=== PATIENT | male | born 1950 | race Caucasian/White ===

== ENCOUNTER → 2024-10-05 06:31 | Outpatient (REF) | payer OTHER, SELFPAY | LOC: RCS 06:31 | PROVIDERS: ATTENDING PHYSICIAN Internal Medicine Cardiovascular Disease; FAMILY PHYSICIAN Student in an Organized Health Care Education/Training Program | DX: R00.2 Palpitations (principal) | CPT/HCPCS: 78452; 93017; A9500 ==

== ENCOUNTER → 2024-10-18 11:26 | Outpatient (REF) | payer OTHER, SELFPAY | LOC: RCS 11:26 | PROVIDERS: ATTENDING PHYSICIAN Internal Medicine Cardiovascular Disease; FAMILY PHYSICIAN Student in an Organized Health Care Education/Training Program | DX: I25.10 Atherosclerotic heart disease of native coronary artery without angina pectoris (principal) | CPT/HCPCS: 93306 ==

== ENCOUNTER → 2024-12-19 08:38 | Outpatient (REF) | payer OTHER, SELFPAY | LOC: RAD 08:38 | PROVIDERS: ATTENDING PHYSICIAN Physician Assistant; FAMILY PHYSICIAN Student in an Organized Health Care Education/Training Program | DX: M25.551 Pain in right hip (principal) | CPT/HCPCS: 73502 ==

== ENCOUNTER → 2025-01-02 17:26 | Outpatient (REF) | payer OTHER, SELFPAY | LOC: MRI 17:26 | PROVIDERS: ATTENDING PHYSICIAN Physician Assistant | DX: R93.89 Abnormal findings on diagnostic imaging of other specified body structures (principal); M88.9 Osteitis deformans of unspecified bone | CPT/HCPCS: 72197; A9575 ==

== ENCOUNTER 2025-02-22 13:18 | Inpatient (IN) | payer OTHER, SELFPAY ==
[2025-02-22] VITALS (16 sets, daily range): BP systolic 83–145; BP diastolic 37–97; BMI 24.3
[2025-02-22 11:41] LABS: Hemoglobin 11.1 g/dL (13.0-18.0); Mean Corp Hgb Conc. 35.8 g/dL (33.0-37.0); Mean Corpuscular Hgb 30.3 pg (27.0-31.0); Mean Corpuscular Volume 84.7 fL (80.0-94.0); Mean Platelet Volume 9.3 fL (7.4-10.4); Platelet Count 310 10^3/uL (130-400); Red Blood Cell Count 3.66 10^6/uL (4.70-6.10); Red Cell Dist. Width 14.6 % (11.5-14.5); White Blood Cell Count 23.5 10^3/uL (4.8-10.8)
--- NOTE | 2025-02-22 12:09 | ED.GENMED ---
History of Present Illness
General
Chief Complaint: Abdominal Symptoms
Source: patient and family
Time Seen by Provider: 02/22/25 11:46
History of Present Illness
History of Present Illness:
74-year-old male brought to the emergency by family for evaluation of fatigue, poor oral intake, nausea and right groin pain. Patient was discovered to have a lesion on his right pubic bone in November. This area has been causing significant pain.
His primary prescribed meloxicam and Tylenol for this. He was ultimately referred to orthopedics and had a bone biopsy performed at [facility] yesterday. Family states that his oral intake has been poor but particularly bad over the past 24 hours. He
has not been able to tolerate any oral intake. Like he is hallucinating at times. He is very weak and has difficulty performing any sort of activities. No known fever.
Past History
Past History
ED Past Medical History: None
ED Past Surgical History: Other (Hernia repair)
Social History
Tobacco: Smoker
Alcohol: Daily (2-3 beers)
Phy Exam
Physical Exam
Physical Exam:
General: Awake, Alert, Oriented X3. No acute distress but appears chronically ill
Vitals: Cardiac, mildly hypotensive
Head: Atraumatic
Eyes: Sunken eyes, pupils equal, EOMI
Throat: Airway intact, no exudates, very dry mucosa
Neck: Trachea midline
Lungs: Clear and equal b/l
Heart: Regular rate, no murmurs
Abd: Soft, Nontender, No pulsatile mass
Neuro: Nonfocal
Skin: Warm, dry, no rash
Extremities: pulses equal b/l, no edema
Course
Orders/Labs/Results
Orders:
Orders
02/22/25 11:28
Electrocardiogram (*1) Urgent
Reason for Study: Other
Other Reason for Exam: Possible Stroke
EKG- Treatment ONCE
02/22/25 11:29
Complete Blood Count/With Diff Urgent
Comprehensive Metabolic Panel Urgent
Magnesium Urgent
Comment: ADD ON
Phosphorus Urgent
Comment: ADD ON
TSH Urgent
Comment: ADD ON
02/22/25 12:12
0.9% Sodium Chloride 1000 ml [Nss] 1,000 ml IV BOLUS
02/22/25 12:13
CR Chest - 2 Views Urgent
Comment:
Reason For Exam: weakness
02/22/25 12:18
Urinalysis Reflex To Culture Urgent
Date Specimen was Collected: 02/22/25
Time Specimen was Collected: 12:14
Urine Microscopic Reflex Cult Urgent
02/22/25 12:27
Add On- LAB Urgent
Tests Added?: ionized calcium, mag, phos
0.9% Sodium Chloride 1000 ml [Nss] 1,000 ml IV BOLUS
02/22/25 12:43
Ionized Calcium Routine
02/22/25 13:08
Admit/Transfer Patient As Directed
Co-Sign Provider:
Level of Care: Inpatient admission
Assign to:: Telemetry
Physician / Group: filiberto
Diagnosis: hypercalcemia
Reason for Telemetry: Arrhythmia
Date to Stop Telemetry: 02/25/25
Time to Stop Telemetry: 11:00
Reason for Hospitalization: hypercalcemia
Expected length of stay greater than two midnights?: Yes
ELOS- Estimated Length of Stay in days: 2
I certify the patient meets the requirements for IP care: Yes
Code Status As Directed
Resuscitation Status: Full Code
PRN Pain Medication Management As Directed
May give lesser potent ordered pain med per pt: Yes
preference::
Protocol:: Medication orders for pain may be administered in a
manner that supports deferring to patient preference
when the pt is:
- Requesting an ordered lesser potent pain medication.
Least to most potent pain medications are defined
as: acetaminophen < NSAID < tramadol < opioids
(morphine, oxycodone, hydromorphone).
- Requesting a lesser dose of the same medication IF
ORDERED.
- Requesting a less intrusive route of administration
if both routes are prescribed by the provider (PO <
IV).
02/22/25 13:17
Urine Osmolality Random [Osmolality, Random Urine] Routine
Date Specimen was Collected: 02/22/25
Time Specimen was Collected: 13:14
Urine Sodium Routine
Date Specimen was Collected: 02/22/25
Time Specimen was Collected: 13:14
02/22/25 14:33
Add On- LAB Routine
Tests Added?: tsh, pth, pthrp, vit d
Activity As Directed
Activity Level: As Tolerated
Vital Signs As Directed
Frequency: Per unit guidelines
DX Deep Vein Thrombosis Video Routine
02/22/25 14:46
Acetaminophen [Tylenol] 650 mg PO Q4HPRN PRN
02/22/25 Dinner
Cholesterol Lowering
At Your Request: Full Participation
Does patient need a safe tray?: No
Cholesterol Lowering: Sodium, 2 Gram
02/22/25 20:00
Heparin 5,000 units SC Q12
02/23/25 06:00
Complete Blood Count/With Diff IN AM
Comprehensive Metabolic Panel IN AM
02/23/25 08:00
Aspirin Chewable [Low Strength Aspirin] 81 mg PO DAILY
Atorvastatin [Lipitor] 40 mg PO DAILY
Ezetimibe [Zetia] 10 mg PO DAILY
02/25/25 11:00
DC Protocol for Telemetry ONCE
Abnormal Lab Results
02/22/25 02/22/25 02/22/25
11:29 12:18 12:43
WBC 23.5 H 10^3/uL
(4.8-10.8)
RBC 3.66 L 10^6/uL
(4.70-6.10)
Hgb 11.1 L g/dL
(13.0-18.0)
Hct 31.0 L %
(39.0-52.0)
RDW 14.6 H %
(11.5-14.5)
Abs Immat Gran (auto) 0.2 H 10^3/uL
(0-0.05)
Absolute Neuts (auto) 20.2 H 10^3/uL
(1.4-6.5)
Absolute Monos (auto) 1.4 H 10^3/uL
(0.1-0.6)
Immature Gran % 1.0 H %
(0-0.5)
Neutrophils % 85.7 H %
(42.2-75.2)
Lymphocytes % 6.9 L %
(20.5-51.1)
Sodium 126 L mmol/L
(135-145)
Chloride 93 L mmol/L
(98-107)
BUN 48 H mg/dl
(9-20)
Creatinine 2.1 H mg/dL
(0.7-1.3)
Glucose 115 H mg/dl
(70-99)
Calcium 14.8 H* mg/dl
(8.4-10.2)
Ionized Calcium 1.89 H* mMOL/L
(1.15-1.33)
Urine Bilirubin 1+ A
(Negative)
Urine Bacteria (Reflex) Few A
(Negative)
Urine Albumin (Reflex) 2+ A
(Neg - Trace)
02/22/25 11:29
02/22/25 11:29
Vital Signs
Initial and Last Documented VS:
Initial Vital Signs
Temp Pulse Resp BP Pulse Ox
97.5 F 104 18 93/55 96
02/22/25 11:04 02/22/25 11:04 02/22/25 11:04 02/22/25 11:04 02/22/25 11:04
Last Documented Vital Signs
Temp Pulse Resp BP Pulse Ox
97.2 F 87 14 126/59 100
02/22/25 14:43 02/22/25 14:43 02/22/25 14:43 02/22/25 14:43 02/22/25 14:43
MDM/Problems Addressed
Differential Diagnosis Includes:
Dehydration, acute renal failure, electrolyte abnormality such as hyponatremia or hyperkalemia
MDM/Problems Addressed:
Patient presents with nausea, poor appetite, poor oral intake and generalized weakness. Clinically he looks quite dry. IV fluids started. Labs shows the patient has several abnormalities. His white blood cell count is significantly elevated
23.5. He is afebrile and on physical exam there is no obvious source of infection. Sodium low at 126. Patient's BUN and creatinine are significantly elevated beyond baseline. Calcium levels are quite high with a serum calcium of 14.8 and an
ionized calcium of 1.89. Initial treatment for this is aggressive IV hydration. 2 L of normal saline have been ordered initially. Patient had mild hypotension initially. This is improving with IV fluid. Patient seems more alert now that he has
had some fluid resuscitation. Obviously will require hospitalization and careful monitoring given his significant hypercalcemia.
*Radiology
Radiology exam reviewed: radiology read reviewed
*Pulse Oximetry
Patient hypoxic: no
*EKG
Interpreted by ED Provider?: Yes
Interpretation: abnormal
Heart Rate: 96
Rate: normal
Rhythm: sinus
Interval: first degree heart block
QRS Pattern: right bundle branch block
Ischemia: non-specific ST changes
*Quirk Sander Interpretation
Rate: normal
Interpretation: normal
Rhythm: sinus
*Critical Care Note
Total Time (30-74mins, 75-104mins- exclusive of procedures): 35 min
comment:
Critical care statement: A total of 35 minutes of critical care time was provided for this patient. This includes management of unstable vital signs, evaluation of the patient at bedside, reviewing the patient's pertinent medical records, discussion
with consultants, review of old EKGs and review of pertinent medical records. This time with separate from time utilized to perform the aforementioned documented procedures
Patient Management
Social determinants of health affecting care: Living situation and Strong social support
Discussion with other providers: Hospitalist
ED Attending Note
-
Portions of this chart may have been created with voice recognition software.� Occasional wrong word or��sound alike� substitutions may have occurred due to the inherent limitations of voice recognition software.
Discharge Plan
Departure
Patient Disposition: Admit
Date of Disposition: 02/22/25
Time of Disposition: 12:57
Admit to: IVU and IMU
Presentation/result/management discussed w/ accepting MD/DO: Hospitalist
Condition: Serious
Discharge Problem:
Hypercalcemia, Acute dehydration, Acute renal failure (ARF)
Interventions
Interventions:
*Risk Screen - Suicide Last Done: 02/22/25 11:04
*General Assessment Last Done: 02/22/25 11:04
*Neglect/Abuse Screening Last Done: 02/22/25 11:04
*ED- Fall Risk Assessment Last Done: 02/22/25 11:24
*ED COVID-19 Vaccine History Last Done: 02/22/25 15:00
*Nursing Disposition Last Done: 02/22/25 13:43
WG-Hialzf-Jkmctvijrx Assessment Last Done: 02/22/25 11:22
Discharge Date and Time
Discharge Date/Time: 02/22/25 14:29
[2025-02-22 12:11] LABS: ALT (SGPT) 31 U/L (0-50); AST (SGOT) 59 U/L (17-59); Albumin 3.8 g/dl (3.5-5.0); Alkaline Phosphatase 126 U/L (38-126); Blood Urea Nitrogen 48 mg/dl (9-20); Carbon Dioxide 22 mmol/L (22-30); Chloride 93 mmol/L (98-107); Estimated Creatinine Clearance 29 ml/min; Glucose 115 mg/dl (70-99); Potassium 5.1 mmol/L (3.5-5.1); Sodium 126 mmol/L (135-145); Total Bilirubin 1.3 mg/dl (0.2-1.3); Total Protein 6.4 g/dl (6.3-8.2); eGFR 32.62
[2025-02-22 12:16] LABS: % Basophils 0.3 % (0-2); % Eosinophils 0.1 % (0-6); % Lymphocytes 6.9 % (20.5-51.1); % Neutrophils 85.7 % (42.2-75.2); Absolute Basophils 0.1 10^3/uL (0-0.2); Absolute Immature Granulocytes 0.2 10^3/uL (0-0.05); Absolute Lymphocytes 1.6 10^3/uL (1.2-3.4); Absolute Monocytes 1.4 10^3/uL (0.1-0.6); Absolute Neutrophils 20.2 10^3/uL (1.4-6.5); Nucleated Red Blood Cells % 0 % (-)
[2025-02-22] MEDS: NSS 1000 IV ×4 (12:16→16:03)
[2025-02-22 12:33] LABS: Urine Albumin 2+ (Neg - Trace); Urine Bilirubin 1+ (Negative); Urine Character Clear (Clear); Urine Color Yellow; Urine Glucose Negative (Negative); Urine Ketone Negative (Negative); Urine Leukocyte Negative (Negative); Urine Nitrite Negative (Negative); Urine Occult Blood Negative (Negative); Urine Specific Gravity 1.025 (<1.030); Urine Urobilinogen Negative (Neg - 1+)
[2025-02-22 12:47] LABS: Calcium 14.8 mg/dl (8.4-10.2)
[2025-02-22 12:49] LABS: Magnesium 2.3 mg/dl (1.6-2.3); Phosphorus 3.8 mg/dl (2.5-4.5)
[2025-02-22 13:08] LABS: Ionized Calcium 1.89 mMOL/L (1.15-1.33)
[2025-02-22 13:11] LABS: Urine Mucus Moderate
[2025-02-22 13:12] LABS: Urine Bacteria Few (Negative); Urine Red Blood Cell 0-2 /HPF (0-2)
[2025-02-22 13:27] LABS: Osmolality Urine 428 mOsm/kg (300-900)
--- NOTE | 2025-02-22 13:27 | HPS.HSE ---
Family Physician
-
Family Physician: Hany Fonseca MD
Chief Complaint
-
confusion
History of Present Illness
74-year-old male past medical history of possible Paget's disease, ischemic cardiomyopathy with recovered ejection fraction, CAD, hypertension, osteoarthritis, presenting with fatigue, poor oral intake, nausea and right groin pain. He was
discovered to have a lesion on his right pubic bone in November after a fall which has been causing him significant pain and ambulatory dysfunction. He has been prescribed meloxicam and Tylenol for this. He was referred to orthopedics and had a bone
biopsy at [facility] few days ago. His oral intake has been poor but particularly bad over the past 24 hours. He is hallucinating at times. He is very weak and has difficulty performing any activities. No fever. He has had constipation but did have a
bowel movement today. He has had weight loss. No abdominal pain.
He was thought to have Paget's disease in the past but it was not confirmed.
He has chronic shortness of breath with exertion.
His mother had Paget's disease.
He used to drink alcohol and smoke but denies any such activities anymore.
Medical History
Past Medical History
Past Medical History: Reports Other (possible Paget's disease, ischemic cardiomyopathy with recovered ejection fraction, CAD, hypertension, osteoarthritis)
Past Surgical History: Reports None
Social History
Tobacco: Former Smoker
Alcohol: Former
Drug: Former User
Family History
Family History: Not pertinent
Allergies / Home Medications
Allergies reflects when Allergies were last updated in [employer].
Home Medications with original date entered in [employer]
Allergy/Medication List:
Allergies
Allergy/AdvReac Type Severity Reaction Status Date / Time
seasonal Allergy sneezing Uncoded 02/22/25 11:04
Home Medications
atorvastatin 40 mg tablet 40 mg PO DAILY High cholesterol 08/09/19
lisinopril 20 mg tablet 20 mg PO DAILY Blood pressure 10/06/21
acetaminophen 650 mg tablet,extended release 650 mg PO Q4HPRN PRN PAIN 02/22/25
aspirin 81 mg tablet 81 mg PO DAILY 02/22/25
ezetimibe 10 mg tablet 10 mg PO DAILY 02/22/25
meloxicam 15 mg tablet 15 mg PO DAILY 02/22/25
metoprolol succinate 25 mg tablet,extended release 24 hr 25 mg PO DAILY 02/22/25
Review of Systems
-
History Source: Patient
A 12 point ROS was completed and negative except as noted: Yes
Constitutional: Reports No Symptoms
EENT: Reports No Symptoms
Respiratory: Reports No Symptoms
Cardiac: Reports No Symptoms
Abdomen/GI: Reports See HPI
: Reports No Symptoms
Musculoskeletal: Reports No Symptoms
Skin: Reports No Symptoms
Neurological: Reports No Symptoms
Endocrine: Reports No Symptoms
Hematologic/Lymphatic: Reports No Symptoms
Psych: Reports No Symptoms
Physical Exam
Vital Signs
Vital Signs
Temp Pulse Resp BP Pulse Ox
99.3 F 97 22 93/54 97
02/22/25 12:21 02/22/25 13:16 02/22/25 13:16 02/22/25 13:16 02/22/25 12:30
Physical Exam
General: Well Developed, Well Nourished and No Apparent Distress
HEENT: NormoCephalic, Moist mucous membranes and Atraumatic
Respiratory: Clear
Cardiac: S1/S2 and Regular Rhythm; No Murmur or Rub
GI: Soft, Non Tender, Non Distended and Normal Bowel Sounds; No Organomegaly
Rectal: Deferred by Provider
Musculoskeletal: No Clubbing, No Cyanosis and No Edema
Skin: No Rash
Neuro: Nonfocal/grossly intact
Laboratory Results
-
02/22/25 11:29
02/22/25 11:29
Laboratory Results
Total Bilirubin 1.3 mg/dl (0.2-1.3) 02/22/25 11:29
AST 59 U/L (17-59) 02/22/25 11:29
ALT 31 U/L (0-50) 02/22/25 11:29
Alkaline Phosphatase 126 U/L (38-126) 02/22/25 11:29
Data Reviewed
-
Lab Data: Labs Reviewed by me
Old Records: Reviewed
Impression/Plan
-
IMPRESSION:
PLAN:
# Severe symptomatic hypercalcemia likely secondary to possible Paget's disease with possible sarcomatous transformation versus myeloma
- Calcium of 14.8
- IV fluids
-Pamidronate
- Check PTH, PTH RP, vitamin D
- nephrology consulted
# Acute kidney injury likely prerenal/NSAID use
- IV fluids
- Hold lisinopril, meloxicam
# Hyponatremia likely due to poor solute intake
- Sodium 126
- Check urine sodium, osmolality, TSH
- Monitor with IV fluids
# Dyspnea on exertion
- Chest x-ray pending
# Right pubic bone lesion
- Recently had biopsy at [facility] yesterday
-Unclear if Paget's disease versus malignancy
- Hold meloxicam
- Outpatient follow-up with orthopedic oncology and biopsy results
Ischemic cardiomyopathy with recovered EF
- Continue metoprolol
CAD
- Continue aspirin
Essential hypertension
- Hold lisinopril
Osteoarthritis
Hyperlipidemia
- Continue Zetia, statin,
DNR/DNI
DVT prophylaxis�heparin
Regular diet
--- NOTE | 2025-02-22 14:04 | W.CON.NEPH ---
Consultation
-
Date/Time Consultation Requested: 02/22/2025 1 PM
Date/Time Consultation Performed: 02/22/2025 2 PM
Requesting Provider: Dr. Santo
Performing Provider: Dr. Ruiz
Reason for Consultation: NOMI, hypercalcemia
Medical History
-
Chief Complaint: confusion
History of Present Illness:
This is a 74-year-old gentleman who has hypertension typically controlled with a multidrug regimen, hyperlipidemia on Zetia therapy. He has known ischemic cardiomyopathy but recovered ejection fraction after coronary bypass 2014. He had previously
been a smoker but had quit after his bypass surgery. He has been diagnosed with Paget's disease of the bone clinically in the right pelvis. This had been followed conservatively. In December he underwent MRI which showed a large expansile soft
tissue mass in the right pubic bone and superior pubic ramus of 7 cm x 4.7 cm. There is concern that this would represent transformation of osteosarcoma. He saw Ortho oncology and underwent biopsy of the mass on 02/19/2025. Final pathology
report is pending still. Reports that in the last week but more so in the last 24 hours he has become increasingly confused and disoriented and more immobile and uncoordinated. He essentially has stopped eating or drinking. Has had no diarrhea
but urine output has been darker. He has continued to take his medications. For the last 2 months he has been using NSAIDs for pain. Initially he was using ibuprofen with Tylenol and in the last 2 weeks meloxicam. Ultimately given worsening of
his mental state they brought him to the emergency room. He was found to have a leukocytosis, hyponatremia, hypercalcemia with a calcium of 14.8, as well as hypotension. He is critically ill.
Past Medical History
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
Ischemic cardiomyopathy recovered ejection fraction
Coronary artery disease with bypass grafting 2014
hypertension
Hyperlipidemia
Diverticulosis
Right shoulder surgery
Right TKA
Mohs procedures
Social History
Tobacco: Former Smoker
Alcohol: None
Family History
Family History: Not Pertinent
Allergies / Home Medications
Allergy/AdvReac Type Severity Reaction Status Date / Time
seasonal Allergy sneezing Uncoded 02/22/25 11:04
�Medication �Instructions �Recorded �Confirmed �Type
atorvastatin 40 mg tablet 40 mg PO DAILY High cholesterol 08/09/19 02/22/25 History
lisinopril 20 mg tablet 20 mg PO DAILY Blood pressure 10/06/21 02/22/25 History
acetaminophen 650 mg 650 mg PO Q4HPRN PRN PAIN 02/22/25 02/22/25 History
tablet,extended release
aspirin 81 mg tablet 81 mg PO DAILY 02/22/25 02/22/25 History
ezetimibe 10 mg tablet 10 mg PO DAILY 02/22/25 02/22/25 History
meloxicam 15 mg tablet 15 mg PO DAILY 02/22/25 02/22/25 History
metoprolol succinate 25 mg 25 mg PO DAILY 02/22/25 02/22/25 History
tablet,extended release 24 hr
Review of Systems
-
No chest pain or shortness of breath.
+dysgeusia
All other systems: Negative unless noted
Physical Exam
Vital Signs
Vital Signs
Temp Pulse Resp BP Pulse Ox
99.3 F 93 22 97/45 97
02/22/25 12:21 02/22/25 13:30 02/22/25 13:30 02/22/25 13:30 02/22/25 12:30
Lab Results
WBC 23.5 10^3/uL (4.8-10.8) H 02/22/25 11:29
RBC 3.66 10^6/uL (4.70-6.10) L 02/22/25 11:29
Hgb 11.1 g/dL (13.0-18.0) L 02/22/25 11:29
Hct 31.0 % (39.0-52.0) L 02/22/25 11:29
Plt Count 310 10^3/uL (130-400) 02/22/25 11:
Sodium 126 mmol/L (135-145) L 02/22/25 11:
Potassium 5.1 mmol/L (3.5-5.1) 02/22/25 11:
Chloride 93 mmol/L (98-107) L 02/22/25:
Carbon Dioxide 22 mmol/L (22-30) 02/22/25:
BUN 48 mg/dl (9-20) H 02/22/25:
Creatinine 2.1 mg/dL (0.7-1.3) H 02/22/25:
eGFR 32.62 02/22/25 11:
Glucose 115 mg/dl (70-99) H 02/22/25:
Calcium 14.8 mg/dl (8.4-10.2) H* 02/22/25:
Phosphorus 3.8 mg/dl (2.5-4.5) 02/22/25:
Albumin 3.8 g/dl (3.5-5.0) 02/22/25:
Laboratory values 12/26/2024 sodium 138, potassium 5, chloride 100, bicarb 23, BUN 14, creatinine 0.71, calcium 9.7, WBC 11.0, hemoglobin 12.4, platelet 91
Laboratory values 02/02/2025 WBC 13.0, hemoglobin 11.6, platelets 380
Physical Exam
Patient is awake alert oriented and in no distress. Mood and affect were pleasant, insight and judgment were good. Pupils are equal round and reactive to light, extraocular movements are intact, sclera were anicteric. Hearing was normal, ears and
nose are intact. Oropharynx was clear. Neck was supple with trachea midline and no thyromegaly. Heart was regular rate and rhythm without rubs. Lower extremities without edema. Lungs were clear to auscultation bilaterally and with normal
excursion. Abdomen was soft, nontender, with normal active bowel sounds, and no hepatosplenomegaly. Skin was without rash and with normal turgor.
Data Reviewed
-
Radiology: Image Personally Visualized and interpreted (Chest x-ray 02/23/2024 by my reading left effusion cardiomegaly vascular prominence, left hilar prominence)
MRI: Report Reviewed by me (Pelvis MRI 01/02/2025 expansile lesion right pubic bone and superior pubic ramus with smaller lesions)
Labs: Labs Reviewed by me
Old Records: Reviewed
Assessment/Plan
-
Assessment
NOMI
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
Expansile lesion right pelvis status post biopsy 02/19/2025
Hypercalcemia, new in the last 2 months
Leukocytosis
Hypotension
Left hilar prominence
CAD/CABG
NSAID usage
Plan
IV fluids, saline, at least 3 L then maintenance
Follow BP add pressors if needed for persistent hypotension after bolus
Pamidronate
Calcitonin 4 doses
Hypercalcemic workup ordered
Holding NSAIDs, DENISE inhibitor
Fortunately high suspicion for malignancy
Critical time spent 40 minutes
[2025-02-22] MEDS: CALCIMAR/CALCITONIN 400 UNITS/ 2 ML SC ×2 (14:49→21:27)
[2025-02-22] MEDS: AREDIA 270 MG IV (15:11)
[2025-02-22 15:48] LABS: Calcium 13.2 mg/dl (8.4-10.2); Phosphorus 3.8 mg/dl (2.5-4.5)
[2025-02-22 16:00] LABS: TSH 2.94 uIU/ml (0.47-4.68)
[2025-02-22 16:04] LABS: Vitamin D, 25-OH*** < 12.8 ng/mL (30-80)
--- NOTE | 2025-02-22 16:18 | PTCARENOTE ---
Patient admitted to 4W from ED, pulled over from stretcher to bed. AAOx1 to self with some garbled speech. Bed alarm in place.
[2025-02-22 16:22] LABS: Urine Sodium 22 mmol/L (30-90)
--- NOTE | 2025-02-22 18:12 | PTCARENOTE ---
Patient's telemetry alarming for sustained VTach. Telemetry reviewed and EKG obtained, rhythm is sinus tachycardia with a RBBB. Patient reports feeling his heart was racing 'a little bit ago'. BP 105/44 HR sustaining 108-115. MD notified, no new
orders at this time. Plan of care ongoing.
--- NOTE | 2025-02-22 19:00 | PTCARENOTE ---
pt MO=[id number], here hypercalcemia TT=067 MH=963/54. EKG=sinus tachycardia. pt abdomen distended. bladder hcvv=[id number]. informed MOWER OPERATOR Wilbertb and sent ekg- order for straight and IV Lopressor. pt straight cath for 1175ml. HR still elevated. IV Lopressor
given w/+eff. HR 98-105. pt remains on tele will monitor.
[2025-02-22] MEDS: HEPARIN 5000 UNITS SC (20:13)
[2025-02-22] MEDS: LOPRESSOR 2.5 MG IV (20:17)
[2025-02-23] VITALS (8 sets, daily range): BP systolic 101–126; BP diastolic 51–61; PULSE 100–129; BMI 24.0
[2025-02-23] MEDS: NSS 1000 IV ×3 (00:42→16:33)
[2025-02-23] MEDS: TYLENOL 650 MG PO ×2 (00:42→16:33)
[2025-02-23] MEDS: ZYPREXA 5 MG IM (03:53)
[2025-02-23] MEDS: STERILE WATER FOR INJECTION 2.1 ML IM (03:54)
--- NOTE | 2025-02-23 04:01 | W.PN.UPDATE ---
Update Note
Progress Note Update
pt had been confused since admit but this morning pt being non redirectable and aggressive to staff. sarah lobo ordered x1
--- NOTE | 2025-02-23 04:25 | PTCARENOTE ---
pt restless all night pulling at INT, tele, gown.
at 0300 pt increase agitation, restless, and combative toward nsg because he wanted to go look for his dog. pt would not take redirection. s/w LAMBERTO Kumar - yamil Chandler w/some effect. .
[2025-02-23] MEDS: LOPRESSOR 2.5 MG IV (06:30)
--- NOTE | 2025-02-23 06:38 | PTCARENOTE ---
Pt Hr 100-[address] most of the night. pt voiding small amounts.
0500 bladder scan for 500, abdomen distended. pt unable to void. straight cath for 650ml.
0600 pt sleeping and HR 120 and sustaining. VJ=733/76. D[employer] HOUSE HAND Harriett Kumar aware. IV Lopressor w/ +eff. HR 101.
[2025-02-23 09:10] LABS: % Basophils 0.2 % (0-2); % Eosinophils 0.1 % (0-6); % Immature Granulocytes 0.8 % (0-0.5); % Lymphocytes 4.8 % (20.5-51.1); % Monocytes 7.1 % (1.7-9.3); Absolute Immature Granulocytes 0.2 10^3/uL (0-0.05); Absolute Lymphocytes 0.9 10^3/uL (1.2-3.4); Absolute Monocytes 1.4 10^3/uL (0.1-0.6); Absolute Neutrophils 16.8 10^3/uL (1.4-6.5); Hematocrit 24.6 % (39.0-52.0); Hemoglobin 8.8 g/dL (13.0-18.0); Mean Corp Hgb Conc. 35.8 g/dL (33.0-37.0); Mean Corpuscular Hgb 31.4 pg (27.0-31.0); Mean Corpuscular Volume 87.9 fL (80.0-94.0); Mean Platelet Volume 8.9 fL (7.4-10.4); Nucleated Red Blood Cells % 0 % (-); Platelet Count 257 10^3/uL (130-400); White Blood Cell Count 19.3 10^3/uL (4.8-10.8)
[2025-02-23] MEDS: LIPITOR PO ×2 (09:38→09:52)
[2025-02-23] MEDS: LOW STRENGTH ASPIRIN 81 MG PO (09:38)
[2025-02-23] MEDS: ZETIA PO ×2 (09:38→09:53)
[2025-02-23] MEDS: HEPARIN 5000 UNITS SC ×2 (09:38→20:27)
--- NOTE | 2025-02-23 10:01 | W.PN.HOSP.TC ---
Addendum entered and electronically signed by Lacie Yi MD 02/23/25 12:33:
# Stage 2 sacrum pressure injury, POA
Addendum entered and electronically signed by Lacie Yi MD 02/23/25 12:23:
updated and sister at bedside. Extensive discussion with both in person.
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
Original Note:
Today's Communication/Plan
-
see A/P
Assessment / Plan
Assessment / Plan
HPI: 74-year-old male past medical history of possible Paget's disease, ischemic cardiomyopathy with recovered ejection fraction, CAD, hypertension, osteoarthritis; p/w fatigue, poor oral intake, nausea and right groin pain.
He was discovered to have a lesion on his right pubic bone in November after a fall which has been causing him significant pain and ambulatory dysfunction.
He has been prescribed meloxicam and Tylenol for this. He was referred to orthopedics and had a bone biopsy at [facility] few days ago.
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 He is hallucinating at times. He has been very weak and has difficulty performing any activities. No fever. He has had constipation but did have a bowel movement on DOA.
He has had weight loss. No abdominal pain.
He was thought to have Paget's disease in the past but it was not confirmed.
He has chronic shortness of breath with exertion.
His mother had Paget's disease.
He used to drink alcohol and smoke but denies any such activities anymore.
A/P:
# Severe symptomatic hypercalcemia likely secondary to possible Paget's disease with possible sarcomatous transformation versus myeloma
Calcium 14.8 on admission,
cont IV fluids
s/p Pamidronate
cont calcitonin per renal
Follow PTH level
vitamin D level low (< 12.8), start high dose ergocalciferol
nephrology on board
# Acute kidney injury likely prerenal/NSAID use
SCr 2.1 on admission, cont to monitor, baseline 0.7
Cont IV fluids
Hold lisinopril, meloxicam
# Hyponatremia likely due to SIADH
Sodium 126, cont to monitor
Monitor sodium level with IV fluid as above
# Leucocytosis, reactive vs others?
Check empiric blood cultures x2
Cover with empiric abx Ceftriaxone for now
Monitor temp curve
# ?Acute metabolic encephalopathy due to hypercalcemia
Pt not conversant on exam today, unclear baseline
SPL eval
# Dyspnea on exertion
Incidental finding of lung mass
CXR: Enlargement of the left hilar shadow, concerning for adenopathy and/or central mass. Increased reticulonodular markings throughout most of the left lung, which appears asymmetric compared to the right lung, and raises concern for lymphangitic
spread of carcinoma. Prominence of soft tissue density in the right inferior paratracheal region, new since previous radiograph, and concerning for paratracheal lymphadenopathy.
Unfortunately, with current NOMI status, unable to check CT chest with contrast
Follow SPEP/UPEP
Onc CS
# Right pubic bone lesion
Recently had biopsy at [facility]
Unclear if Paget's disease versus malignancy
Hold meloxicam
Outpatient follow-up with orthopedic oncology and biopsy results
# Ischemic cardiomyopathy with recovered EF
Holding TUCKING MACHINE OPERATOR metoprolol with current hypotension
# CAD
Continue aspirin
# Essential hypertension
Hold TUCKING MACHINE OPERATOR lisinopril/metoprolol
# Osteoarthritis
# Hyperlipidemia
Continue Zetia, statin
DNR/DNI
DVT prophylaxis�heparin SQ
Regular diet
DW RN
called to update, calls not answered
total time spent 51 min
Anticipated Discharge: > 48 hours
Subjective/Interval History
-
Date of Service: February 23, 2025
Objective Data
-
Labs:
Laboratory Results
02/23/25
08:38
WBC 19.3 H
Hgb 8.8 L D
Hct 24.6 L
Plt Count 257
Sodium Pending
Potassium Pending
Chloride Pending
Carbon Dioxide Pending
BUN Pending
Creatinine Pending
Glucose Pending
Calcium Pending
Total Bilirubin Pending
AST Pending
ALT Pending
Alkaline Phosphatase Pending
Vital Signs:
Vital Signs
Temp Pulse Resp BP Pulse Ox
36.9 C 104 20 106/53 94
02/23/25 08:00 02/23/25 08:00 02/23/25 08:00 02/23/25 08:00 02/23/25 08:00
I&O
02/22/25 02/23/25 02/24/25
06:59 06:59 06:59
Intake Total 2850 / 2850
Output Total 2350 / 2350
Balance 500 / 500
Review of Systems
-
Unable to obtain full review of systems at this time due to: Acuity and Other (unclear if pt is conversant or not )
Physical Exam
-
General: Well Developed, Well Nourished, No Apparent Distress and Comfortable; Negative Respiratory Distress
HEENT: Normocephalic, Atraumatic, Nose Appears Normal and Ears Appear Normal; Negative Oxygen
Respiratory: Clear to Auscultation and Non Labored Respirations; Negative Accessory Resp Muscle Use
Cardiac: Regular Rhythm and S1/S2
GI: Soft, Nontender, Nondistended and Normal Bowel Sounds
Skin: Warm and Dry
Neuro: Awake
Psych: Calm
Data Reviewed
-
Labs: Labs Reviewed by me
[2025-02-23] MEDS: DRISDOL (VITAMIN D2) PO (10:52)
[2025-02-23] MEDS: CALCIMAR/CALCITONIN 400 UNITS/ 2 ML SC ×2 (10:52→20:27)
--- NOTE | 2025-02-23 12:02 | CM ---
Met and sister in patient's room. Patient and live in 2 level home with 3 steps to enter. There is not a first floor powder room. Up 13 steps to bathroom and bedroom. Patient has been declining in function at home but tries to be very
independent. He was getting himself up stairs with difficulty. He has a rolling walker at home and shower rail. His sister suggests a bedside commode. He has been sleeping in a recliner not his bed.
He has had [facility] in past.
PCP: Yasmani Fonseca
Pharmacy: [facility].
Patient may need additional DME for his home at discharge.
Awaiting PT and OT and ST ghotra to assist with discharge planning.
--- NOTE | 2025-02-23 12:04 | PN.CDI ---
CDI
- -
CDI:
Physician Documentation Request
Admit Date: 02/22/25 13:18
Dear Doctor Kd,
Please review the following and provide your response in the progress notes.
Clinical Indicators:
- RN skin assessments indicate Stage 2 sacrum pressure injury, POA
Physician documentation of the type and location of wounds is required for compliant documentation. Based on the above clinical findings and your assessment, please provide the following in your progress note:
1. Location of the ulcer/wound, including laterality.
2. Type (etiology) of ulcer/wound:
- Diabetic ulcer
- Arterial (ischemic) ulcer
- Traumatic wound
- Pressure (decubitus) ulcer
- Other
Use of terms such as suspected, likely, concern for, or probable (associated with a specific diagnosis that is being evaluated, monitored, or treated as if it exists) are acceptable and can be coded in the inpatient setting, when documented at the
time of discharge.
Thank you,
Brittney Garrido RN
CDI Specialist
Please use your independent medical judgment in providing your response.
*Source: National Pressure Ulcer Advisory Panel (NPUAP)
--- NOTE | 2025-02-23 12:49 | W.PN.NEPH.PH ---
Today's Communication / Plan
-
Maintain IV fluids
Walker cath
Hypercalcemia workup in progress
Labs ordered for tomorrow
Assessment/Plan
-
Assessment
NOMI
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
Expansile lesion right pelvis status post biopsy 02/19/2025
Hypercalcemia, new in the last 2 months
Leukocytosis
Hypotension
Left hilar prominence
CAD/CABG
NSAID usage
Plan
IV fluids, saline, at least 3 L then maintenance
Hemodynamically more stable today
Labs pending and to be reviewed
Pamidronate was given on admission
Calcitonin 4 doses
Hypercalcemic workup ordered
Holding NSAIDs, DENISE inhibitor
UnFortunately high suspicion for malignancy
Place Walker catheter given persistent straight cath requirement and urinary retention
-
-
Date of Service: February 23, 2025
CC / HPI / ROS
-
Chief Complaint:
Acute kidney injury
Hypercalcemia
History of Present Illness:
Hemodynamically more stable
Serum calcium and bmp pending
Review of Systems:
Nonoliguric but requiring multiple straight catheter procedure
No fever
Mental status off remains withdrawn and intermittently aggressive
Labs
-
Labs:
WBC 19.3 10^3/uL (4.8-10.8) H 02/23/25 08:38
RBC 2.80 10^6/uL (4.70-6.10) L 02/23/25 08:38
Hgb 8.8 g/dL (13.0-18.0) L D 02/23/25 08:38
Hct 24.6 % (39.0-52.0) L 02/23/25 08:38
Plt Count 257 10^3/uL (130-400) 02/23/25 08:38
eGFR 32.62 02/22/25 11:29
Phosphorus 3.8 mg/dl (2.5-4.5) 02/22/25 15:04
Physical Exam
-
Vital Signs:
Vital Signs
Temp Pulse Resp BP Pulse Ox
98.1 F 115 18 119/55 94
02/23/25 11:15 02/23/25 11:15 02/23/25 11:15 02/23/25 11:15 02/23/25 11:15
Cardiovascular:: Regular rate and rhythm
Lung Excursion:: Normal
Abdomen:: Nontender and Soft
Bowel Sounds:: Normal
Extremity Edema:: None: Bilateral:
Walker Catheter: No
[2025-02-23] MEDS: ROCEPHIN 1000 MG IV (12:59)
[2025-02-23] MEDS: STERILE WATER FOR INJECTION 10 ML IV (13:00)
--- NOTE | 2025-02-23 13:44 | CON.ONC ---
Documented by User: JANET Lemons 02/23/25 14:42
Consultation
-
Date Consultation Requested: 02/23/25
Date Consultation Performed: 02/23/25
Requesting Provider: Dr. Lacie Yi
Performing Provider: Dr. Cameron
Reason for Consultation: metastatic sarcomatoid carcinoma
Impression
Impression
Expansile lesion right pelvis status post biopsy 02/19/2025 diagnostic for malignant spindle and epithelioid cell neoplasm most consistent with metastatic sarcomatoid carcinoma
left hilar shadow, which is concerning for adenopathy and/or central mass
scattered throughout the left lung, and raises some concern for lymphangitic spread of carcinoma and paratracheal lymphadenopathy
Hypercalcemia of malignancy s/p pamidronate, calcitonin, NS IVF
Leukocytosis
hyponatremia
NOMI
Anemia
CAD/CABG
NSAID usage
Plan
Plan
I reviewed pathology of his newly diagnosed malignant spindle and epithelioid cell neoplasm most consistent with metastatic sarcomatoid carcinoma with patient
Goals remain restorative per
plans to follow up Dr. Dozier upon discharge
on abx per primary service
nephrology following
f/u anemia eval, monitor for bleeding
Patient History
History of Present Illness
74yo M who presented to 02/22/2025 with fatigue, poor intake, nausea, and right groin pain. He has been increasingly confused and disoriented. His initial evaluation showed a WBC 23.5, Hgb 11.1g/dL, platelet count 310,000, Na 126, bun 48,
creatinine 2.1, calcium 14.8. CXR left hilar shadow, which is concerning for adenopathy and/or central mass and scattered throughout the left lung, and raises some concern for lymphangitic spread of carcinoma
In brief, this patient has been suffering from right hip pain since November 2024. The pain was causing ambulatory dysfunction. Pain was not relived with Tylenol or NSAIDs. In December he underwent MRI which showed a large expansile soft tissue mass in
the right pubic bone and superior pubic ramus of 7 cm x 4.7 cm. He underwent a biopsy of the right pubic bone with ortho oncologist on February 19, 2025 that showed malignant spindle and epithelioid cell neoplasm most consistent with metastatic
sarcomatoid carcinoma.
Clinically, he is unable to provide history due to confusion and received zyprexa this morning. His significant other tells me that he has had a progressive decline since November 2024. He is mostly chair bound. He has not been able to eat or drink for
several months with a 15lb weight loss.
Afebrile, no hypotension, no hypoxia.
Past-Medical/Surgical History
PMH CAD, HLD, HTN, ICM, osteoarthritis
PSH right shoulder, R TKA, Mohs
Social former smoker, former ETOH, former recreational drugs. live with . retired
Family non-contributory, mother pagets disease
Patient Medication
�Medication �Instructions �Recorded �Confirmed �Last Taken �Type
atorvastatin 40 mg tablet 40 mg PO DAILY High cholesterol 08/09/19 02/22/25 02/21/25 History
lisinopril 20 mg tablet 20 mg PO DAILY Blood pressure 10/06/21 02/22/25 02/21/25 History
acetaminophen 650 mg 650 mg PO Q4HPRN PRN PAIN 02/22/25 02/22/25 02/21/25 History
tablet,extended release
aspirin 81 mg tablet 81 mg PO DAILY 02/22/25 02/22/25 02/21/25 History
ezetimibe 10 mg tablet 10 mg PO DAILY 02/22/25 02/22/25 02/21/25 History
meloxicam 15 mg tablet 15 mg PO DAILY 02/22/25 02/22/25 02/21/25 History
metoprolol succinate 25 mg 25 mg PO DAILY 02/22/25 02/22/25 02/21/25 History
tablet,extended release 24 hr
Active Medications
Generic Name Dose Route Start Last Admin
Trade Name Freq PRN Reason Stop Dose Admin
Acetaminophen 650 mg 02/22/25 14:46 02/23/25 00:42
Acetaminophen 325 Mg Tablet PO 03/22/25 14:45 650 mg
Q4HPRN PRN Administration
PAIN
Aspirin 81 mg 02/23/25 08:00 02/23/25 09:38
Aspirin 81 Mg Chewable Tablet PO 03/23/25 07:59 81 mg
DAILY GRISELDA Administration
Atorvastatin Calcium 40 mg 02/23/25 08:00 02/23/25 09:52
Atorvastatin (Lipitor) 40 Mg Tablet PO 03/23/25 07:59 Not Given
DAILY GRISELDA
Calcitonin 400 units 02/22/25 14:25 02/23/25 10:52
Calcitonin ([place]) Synthetic 400 Units/2 Ml Vial SC 02/23/25 20:01 400 units
BID GRISELDA Administration
Ceftriaxone Sodium 1,000 mg 02/23/25 12:00 02/23/25 12:59
Ceftriaxone 1000 Mg / 10 Ml Vial IV 1,000 mg
Q24H GRISELDA Administration
Ezetimibe 10 mg 02/23/25 08:00 02/23/25 09:53
Ezetimibe (Zetia) 10 Mg Tablet PO 03/23/25 07:59 Not Given
DAILY GRISELDA
Ergocalciferol 50,000 units 02/23/25 10:00 02/23/25 10:52
Ergocalciferol (Vitamin D-2) 03280 Units Capsule PO 03/23/25 09:59 Not Given
Q7D GRISELDA
Heparin Sodium 5,000 units 02/22/25 20:00 02/23/25 09:38
Heparin 5,000 Units/Ml 1 Ml Vial SC 03/22/25 19:59 5,000 units
Q12 GRISELDA Administration
Sodium Chloride 1,000 mls @ 100 mls/hr 02/22/25 14:33 02/23/25 09:36
Nss IV 1,000 mls
.Q10H GRISELDA Administration
Sodium Chloride 0 flush 02/22/25 15:00
Sodium Chloride 0.9% (Flush) Syringe IV 03/22/25 14:59
PER PROTOCOL GRISELDA
Sterile Water 10 ml 02/23/25 12:00 02/23/25 13:00
Sterile Water For Injection 10 Ml Vial IV 03/23/25 11:59 10 ml
Q24H GRISELDA Administration
Review of Systems
-
ROS is notable for HPI, otherwise negative
Physical Exam
-
General: No Apparent Distress
HEENT: Moist Mucous Membranes; Negative Jaundice
Cardiology: Normal Sinus Rhythm
Pulmonary: Clear
GI: Soft
Extremities: Pulses Present; Negative Edema
Skin: Warm
Psych: Calm
Labs
Lab Results
WBC 19.3 10^3/uL (4.8-10.8) H 02/23/25 08:38
RBC 2.80 10^6/uL (4.70-6.10) L 02/23/25 08:38
Hgb 8.8 g/dL (13.0-18.0) L D 02/23/25 08:38
Hct 24.6 % (39.0-52.0) L 02/23/25 08:38
MCV 87.9 fL (80.0-94.0) 02/23/25 08:38
MCH 31.4 pg (27.0-31.0) H 02/23/25 08:38
MCHC 35.8 g/dL (33.0-37.0) 02/23/25 08:38
RDW 15.0 % (11.5-14.5) H 02/23/25 08:38
Plt Count 257 10^3/uL (130-400) 02/23/25 08:38
MPV 8.9 fL (7.4-10.4) 02/23/25 08:38
Abs Immat Gran (auto) 0.2 10^3/uL (0-0.05) H 02/23/25 08:38
Absolute Neuts (auto) 16.8 10^3/uL (1.4-6.5) H 02/23/25 08:38
Absolute Lymphs (auto) 0.9 10^3/uL (1.2-3.4) L 02/23/25 08:38
Absolute Monos (auto) 1.4 10^3/uL (0.1-0.6) H 02/23/25 08:38
Absolute Eos (auto) 0.0 10^3/uL (0-0.7) 02/23/25 08:38
Absolute Basos (auto) 0.0 10^3/uL (0-0.2) 02/23/25 08:38
Immature Gran % 0.8 % (0-0.5) H 02/23/25 08:38
Neutrophils % 87.0 % (42.2-75.2) H 02/23/25 08:38
Lymphocytes % 4.8 % (20.5-51.1) L 02/23/25 08:38
Monocytes % 7.1 % (1.7-9.3) 02/23/25 08:38
Eosinophils % 0.1 % (0-6) 02/23/25 08:38
Basophils % 0.2 % (0-2) 02/23/25 08:38
Creatinine 2.1 mg/dL (0.7-1.3) H 02/22/25 11:29
Vital Signs
Vital Signs
Temp Pulse Resp BP Pulse Ox
98.1 F 115 18 119/55 94
02/23/25 11:15 02/23/25 11:15 02/23/25 11:15 02/23/25 11:15 02/23/25 11:15

Documented by User: Dank Cameron MD 02/23/25 16:04
Plan
Plan
I reviewed pathology of his newly diagnosed malignant spindle and epithelioid cell neoplasm most consistent with metastatic sarcomatoid carcinoma with patient
Goals remain restorative per
plans to follow up Dr. Dozier upon discharge
on abx per primary service
nephrology following
f/u anemia eval, monitor for bleeding
Oncology Addendum:
Patient case reviewed and agree w/ COMBATANT DIVER QUALIFIED note and plan as outlined
-f/u w/ orthopedic oncology at [facility] upon d/c
[2025-02-23 14:36] LABS: ALT (SGPT) 33 U/L (0-50); AST (SGOT) 55 U/L (17-59); Albumin 2.9 g/dl (3.5-5.0); Alkaline Phosphatase 104 U/L (38-126); Blood Urea Nitrogen 26 mg/dl (9-20); Calcium 11.6 mg/dl (8.4-10.2); Carbon Dioxide 19 mmol/L (22-30); Chloride 104 mmol/L (98-107); Estimated Creatinine Clearance 88 ml/min; Glucose 80 mg/dl (70-99); Potassium 4.4 mmol/L (3.5-5.1); Sodium 131 mmol/L (135-145); Total Protein 5.3 g/dl (6.3-8.2); eGFR > 60.00
[2025-02-23 14:56] LABS: Reticulocyte Count 4.6 % (0.4-2.8)
[2025-02-23 15:18] LABS: Iron 35 ug/dl (49-181); Percent Saturation 14 % (20-50); Total Iron Binding Capacity 249 ug/dl (261-462)
--- NOTE | 2025-02-23 15:48 | PHA.VAN.IN ---
Assessment
- Assessment
Renal Function: Appears similar to baseline
Concomitant Antimicrobials: ROCEPHIN
- Previous Dosing Experience
Previous Regimen: SINGLE DOSE ONLY
AUC Dosing Plan
- Dosing Variables
Dosing Weight (kg): 69.6
Dosing CrCl (ml/min): 88
Vd coefficient (L/kg): 0.7
- Empiric Dosing
Initial / Loading Dose: 1750MG
Maintenance Regimen: 1GM IV Q12H
Estimated AUC (mcg*h/mL): 551
Estimated Peak (mcg*h/mL): 33.9
Estimated Trough (mcg/ml): 14.5
Estimated Half Life (H): 8.9
Pharmacokinetics Vancomycin I
- -
Patient Age: 74
Patient Sex: Male
Vancomycin Day #: 1
Indication: Other
Requesting Provider: JAQUELIN
Height / Weight:
Height 5 ft 7 in
Actual Weight 69.57 kg
Pertinent Past Medical History: LUNG MASS; PAGET'S DX
- Vital Signs / Lab Results
Temp Pulse Resp BP Pulse Ox
100.8 F H 121 20 119/51 96
02/23/25 15:08 02/23/25 15:08 02/23/25 15:08 02/23/25 15:08 02/23/25 15:08
Lab Results - Hematology
02/22/25 02/23/25
11:29 08:38
WBC 23.5 H 19.3 H
Lab Results - Chemistry
02/22/25 02/23/25
11:29 08:38
BUN 48 H 26 H
Creatinine 2.1 H 0.7
Estimated Creat Clear 29 88
Albumin 3.8 2.9 L
Lab Results - Urine
02/22/25
12:18
Urine Nitrite (Reflex) Negative
Leukocyte Esterase Rfl Negative
Urine WBC (Reflex) 3-5
Ur Squamous Epith Cells 3-5
Urine Bacteria (Reflex) Few A
--- NOTE | 2025-02-23 15:50 | PTOTSP ---
Dysphagia Evaluation
Patient presents with acute elevated risk for dysphagia given lethargy with need for verbal/tactile cues to alert for PO intake. Additional risk factors include encephalopathy with acute illness and incidental findings concerning for possible lung
mass.
Recommend:
1. NPO given current JESSICA; consider temporary non-oral means if with prolonged NPO status
2. Medications: essential medications in puree only if awake/alert
3. Aspiration Risk Hydration Protocol - sparing sips of thin liquids only if awake/alert, after oral care, with supervision
4. Dysphagia re-evaluation to determine if/when appropriate to resume an oral diet.
[2025-02-23 16:06] LABS: Intact PTH < 3.4 pg/ml (13.6-85.8)
[2025-02-23] MEDS: VANCOCIN 535 MG IV (16:32)
[2025-02-23 20:50] LABS: Folate 3.1 ng/ml (2.76-20); Vitamin B12 975 pg/ml (239-931)
[2025-02-23] MEDS: NSS IV (21:39)
[2025-02-23] MEDS: DILAUDID 0.25 MG IV (22:03)
[2025-02-24] VITALS (7 sets, daily range): BP systolic 93–150; BP diastolic 52–89; BMI 24.0
[2025-02-24] MEDS: TYLENOL 650 MG PO ×3 (04:28→19:51)
--- NOTE | 2025-02-24 05:40 | PTCARENOTE ---
Patient was asleep most of the night and woke up around 0400. He has been tachy during his admission; however, after waking up, his HR kept increasing to the upper 120s-130s. BP 115/56, RR was 40. Pulse ox 92% on RA T 98.1. PRN Tylenol given at 0430
for R pelvic pain at bx site. Patient reported feeling SOB, started patient on 2L of O2. Pulse ox at 95%. At 0450, RR is 30-32. HR around 119-122. He appears more comfortable and is falling asleep. FUSE CUTTER made aware via TT. FUSE CUTTER decreased NSS to 70mls/hr.
At 0535, RR 26, HR 117. Patient appears to be resting comfortably.
[2025-02-24] MEDS: VANCOCIN 200 IV ×2 (06:14→17:39)
[2025-02-24 07:10] LABS: % Basophils 0.2 % (0-2); % Eosinophils 0.2 % (0-6); % Immature Granulocytes 0.8 % (0-0.5); % Lymphocytes 5.9 % (20.5-51.1); % Monocytes 8.1 % (1.7-9.3); % Neutrophils 84.8 % (42.2-75.2); Absolute Immature Granulocytes 0.1 10^3/uL (0-0.05); Absolute Lymphocytes 1.1 10^3/uL (1.2-3.4); Absolute Monocytes 1.5 10^3/uL (0.1-0.6); Absolute Neutrophils 15.2 10^3/uL (1.4-6.5); Hemoglobin 8.5 g/dL (13.0-18.0); Mean Corp Hgb Conc. 35.4 g/dL (33.0-37.0); Mean Corpuscular Hgb 31.5 pg (27.0-31.0); Mean Corpuscular Volume 88.9 fL (80.0-94.0); Mean Platelet Volume 8.8 fL (7.4-10.4); Nucleated Red Blood Cells % 0 % (-); Platelet Count 240 10^3/uL (130-400); Red Cell Dist. Width 15.5 % (11.5-14.5); White Blood Cell Count 17.9 10^3/uL (4.8-10.8)
[2025-02-24 07:24] LABS: Blood Urea Nitrogen 12 mg/dl (9-20); Calcium 10.3 mg/dl (8.4-10.2); Carbon Dioxide 22 mmol/L (22-30); Chloride 105 mmol/L (98-107); Estimated Creatinine Clearance 103 ml/min; Glucose 97 mg/dl (70-99); Magnesium 1.4 mg/dl (1.6-2.3); Potassium 3.9 mmol/L (3.5-5.1); Sodium 133 mmol/L (135-145); eGFR > 60.00
[2025-02-24] MEDS: HEPARIN 5000 UNITS SC ×2 (08:12→19:50)
[2025-02-24] MEDS: LIPITOR 40 MG PO (08:12)
[2025-02-24] MEDS: LOW STRENGTH ASPIRIN 81 MG PO (08:12)
[2025-02-24] MEDS: MAGNESIUM SULFATE 100 IV (08:12)
[2025-02-24] MEDS: ZETIA 10 MG PO (08:12)
--- NOTE | 2025-02-24 09:20 | PHA.VAN.FU ---
Vancomycin Assessment / Plan
- Assessment
Renal Function: SCR Decreasing
WBC's are: Trending Down
In the past 24 hrs, patient has been: Febrile (Tmax = 100.8)
Concomitant Antimicrobials: Ceftriaxone
- Dosing Plan
Continue: Vanc 1000mg IV Q12H
- Monitoring Plan
No level(s) ordered at this time: Consider levels after 02/25 1800 dose
- Follow Up
Pharmacy will continue to follow.
Vancomycin Follow UP
- -
Patient Age: 74
Patient Sex: Male
Vancomycin Day #: 2
Indication: Other
Requesting Provider: JAQUELIN
Height / Weight:
Height 5 ft 7 in
Actual Weight 69.57 kg
Pertinent Past Medical History: LUNG MASS; PAGET'S DX
- Vital Signs / Lab Results
Temp Pulse Resp BP Pulse Ox
99.0 F 114 20 104/52 97
02/24/25 07:00 02/24/25 07:00 02/24/25 07:00 02/24/25 07:00 02/24/25 07:00
Lab Results - Hematology
02/22/25 02/23/25 02/24/25
11:29 08:38 06:44
WBC 23.5 H 19.3 H 17.9 H
Lab Results - Chemistry
02/22/25 02/23/25 02/24/25
11:29 08:38 06:44
BUN 48 H 26 H 12
Creatinine 2.1 H 0.7 0.5 L
Estimated Creat Clear 29 88 103
Albumin 3.8 2.9 L
--- NOTE | 2025-02-24 09:51 | W.PN.HOSP.TC ---
Today's Communication/Plan
-
see A/P
Assessment / Plan
Assessment / Plan
HPI: 74-year-old male past medical history of possible Paget's disease, ischemic cardiomyopathy with recovered ejection fraction, CAD, hypertension, osteoarthritis; p/w fatigue, poor oral intake, nausea and right groin pain.
He was discovered to have a lesion on his right pubic bone in November after a fall which has been causing him significant pain and ambulatory dysfunction.
He has been prescribed meloxicam and Tylenol for this. He was referred to orthopedics and had a bone biopsy at [facility] few days ago.
His oral intake has been poor but particularly bad over the past 24 hours OUTSIDE CUTTER HAND. He is hallucinating at times. He has been very weak and has difficulty performing any activities. No fever. He has had constipation but did have a bowel movement on DOA.
He has had weight loss. No abdominal pain.
He was thought to have Paget's disease in the past but it was not confirmed.
He has chronic shortness of breath with exertion.
His mother had Paget's disease.
He used to drink alcohol and smoke but denies any such activities anymore.
A/P:
# Severe symptomatic hypercalcemia likely secondary to possible Paget's disease with possible sarcomatous transformation versus myeloma
Calcium 14.8 on admission,
cont IV fluids
s/p Pamidronate, calcitonin x4 doses per renal
Follow PTH level
vitamin D level low (< 12.8), started high dose weekly ergocalciferol
nephrology on board
# Acute kidney injury, likely prerenal/NSAID use and postrenal, resolved
# Acute urinary retention
SCr 2.1 on admission -> 0.5 today
Cont IV fluids
Walker placed 02/23
Hold lisinopril, meloxicam
# Hyponatremia likely due to SIADH, improving
Sodium level 126 in admission -> 133 today, cont to monitor
Monitor sodium level with IV fluid as above
# Leucocytosis, reactive vs others?
Follow empiric blood cultures x2
Cover with empiric abx Ceftriaxone/ vanc for now
Noted fever 02/23, monitor temp curve
Check repeat CXR 02/24
# Acute metabolic encephalopathy due to hypercalcemia, MS improved
Pt is awake and conversant today
per , baseline MS awake, conversant, orientated and functional
SPL eval and start diet if possible
# Dyspnea on exertion
# Incidental finding of lung mass
CXR: Enlargement of the left hilar shadow, concerning for adenopathy and/or central mass. Increased reticulonodular markings throughout most of the left lung, which appears asymmetric compared to the right lung, and raises concern for lymphangitic
spread of carcinoma. Prominence of soft tissue density in the right inferior paratracheal region, new since previous radiograph, and concerning for paratracheal lymphadenopathy.
Unfortunately, with current NOMI status, unable to check CT chest with contrast
Follow SPEP/UPEP
Onc on board
# Right pubic bone lesion s/p biopsy
right pubic bone biopsy from 02/19 2025 showed metastatic sarcomatoid carcinoma
Onc on board
# Ischemic cardiomyopathy with recovered EF
Holding OUTSIDE CUTTER HAND metoprolol with current hypotension
# CAD
Continue aspirin
# Essential hypertension
Hold OUTSIDE CUTTER HAND lisinopril/metoprolol
# Osteoarthritis
# Hyperlipidemia
Continue Zetia, statin
DNR/DNI
DVT prophylaxis�heparin SQ
Regular diet
DW RN
updated sister at bedside
total time spent 51 min
Anticipated Discharge: > 48 hours
Subjective/Interval History
-
Date of Service: February 24, 2025
Objective Data
-
Labs:
Laboratory Results
02/24/25
06:44
WBC 17.9 H
Hgb 8.5 L
Hct 24.0 L
Plt Count 240
Sodium 133 L
Potassium 3.9
Chloride 105
Carbon Dioxide 22
BUN 12
Creatinine 0.5 L
Glucose 97
Calcium 10.3 H
Vital Signs:
Vital Signs
Temp Pulse Resp BP Pulse Ox
37.2 C 114 20 104/52 97
02/24/25 07:00 02/24/25 07:00 02/24/25 07:00 02/24/25 07:00 02/24/25 07:00
I&O
02/23/25 02/24/25 02/25/25
06:59 06:59 06:59
Intake Total 2850 / 2850 1450 / 1450
Output Total 2350 / 2350 1900 / 1900
Balance 500 / 500 -450 / -450
Review of Systems
-
History Source: Patient
All other systems: Reviewed and negative
Physical Exam
-
General: Well Developed, Well Nourished, Comfortable and Conversant
HEENT: Normocephalic, Atraumatic, Nose Appears Normal, Ears Appear Normal and Oxygen (2L NC)
Respiratory: Clear to Auscultation and Non Labored Respirations; Negative Accessory Resp Muscle Use
Cardiac: Regular Rhythm and S1/S2
GI: Soft, Nontender, Nondistended and Normal Bowel Sounds
Skin: Warm and Dry
Neuro: Awake and Alert
Psych: Calm and Intact Judgement/Insight (somewhat )
Data Reviewed
-
Labs: Labs Reviewed by me
[2025-02-24] MEDS: STERILE WATER FOR INJECTION 10 ML IV (11:02)
[2025-02-24] MEDS: ROCEPHIN 1000 MG IV (11:03)
[2025-02-24] MEDS: NSS 1000 IV (11:04)
--- NOTE | 2025-02-24 13:38 | W.PN.NEPH.PH ---
Today's Communication / Plan
-
. DC IV fluids
Follow BMP
Hypercalcemia workup in progress
Assessment/Plan
-
Assessment
NOMI
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
Expansile lesion right pelvis status post biopsy 02/19/2025
Hypercalcemia, new in the last 2 months
Leukocytosis
Hypotension
Left hilar prominence
CAD/CABG
NSAID usage
Plan
PC further IV fluids as AKA. I've resolved and serum calcium levels now Normal
Hemodynamically stable today
hypercalcemia Labs pending and to be reviewed,Intact PTH was less than 4
Pamidronate was given on admission
Calcitonin 4 doses
Holding NSAIDs, DENISE inhibitor
UnFortunately high suspicion for malignancy
maintainFoley catheter given persistent straight cath requirement and urinary retention
-
-
Date of Service: February 24, 2025
CC / HPI / ROS
-
Chief Complaint:
Acute kidney injury
Hypercalcemia
History of Present Illness:
Hemodynamically more stable
Serum calcium Normalized
AK I resolved
Review of Systems:
Nonoliguric via Walker
No fever
Mental status off remains withdrawn and intermittently aggressive
Labs
-
Labs:
WBC 17.9 10^3/uL (4.8-10.8) H 02/24/25 06:44
RBC 2.70 10^6/uL (4.70-6.10) L 02/24/25 06:44
Hgb 8.5 g/dL (13.0-18.0) L 02/24/25 06:44
Hct 24.0 % (39.0-52.0) L 02/24/25 06:44
Plt Count 240 10^3/uL (130-400) 02/24/25 06:44
Sodium 133 mmol/L (135-145) L 02/24/25 06:44
Potassium 3.9 mmol/L (3.5-5.1) 02/24/25 06:44
Chloride 105 mmol/L (98-107) 02/24/25 06:44
Carbon Dioxide 22 mmol/L (22-30) 02/24/25 06:44
BUN 12 mg/dl (9-20) 02/24/25 06:44
Creatinine 0.5 mg/dL (0.7-1.3) L 02/24/25 06:44
eGFR > 60.00 02/24/25 06:44
Glucose 97 mg/dl (70-99) 02/24/25 06:44
Calcium 10.3 mg/dl (8.4-10.2) H 02/24/25 06:44
Phosphorus 3.8 mg/dl (2.5-4.5) 02/22/25 15:04
Albumin 2.9 g/dl (3.5-5.0) L 02/23/25 08:38
Physical Exam
-
Vital Signs:
Vital Signs
Temp Pulse Resp BP Pulse Ox
98.3 F 129 22 150/89 95
02/24/25 11:25 02/24/25 11:25 02/24/25 11:25 02/24/25 11:25 02/24/25 11:25
Cardiovascular:: Regular rate and rhythm
Lung Excursion:: Normal
Abdomen:: Nontender and Soft
Bowel Sounds:: Normal
Extremity Edema:: None: Bilateral:
Walker Catheter: No
[2025-02-24] MEDS: FLAGYL 500 MG 100 IV ×2 (13:43→21:26)
--- NOTE | 2025-02-24 14:15 | CM ---
MEt with patient, sister and spouse of patient. Chart had been reviewed. Suggested family and patient start to research SNFs that patient would be willing to go to if necessary. Unclear if patient would qualify for acute rehab due to his medical
needs. CM to follow.
--- NOTE | 2025-02-24 14:32 | PTOTSP ---
Speech therapy
02/24 CXR: 'IMPRESSION:
1. Large amount of left lower lobe opacity which is most likely SEVERE LEFT LOWER LOBE PNEUMONIA (probably postobstructive pneumonia secondary to left lower lobe bronchial occlusion).
2. 4.8 cm irregular shaped density in the left hilum most consistent with LEFT HILAR MALIGNANCY (either primary lung cancer or metastatic disease).
3. Large 7.4 cm DESTRUCTIVE OSSEOUS METASTASIS in the right lateral 6th rib.
4. Mild cardiomegaly.
5. Previous CABG surgery.'
Presentation: Patient appeared to be more alert today in comparison to yesterday's report. Per RN, patient is much more alert. Patient was re-positioned to an upright position within his bed. Patient reported pain in rib and abdonimal area but
agreed to participate.
Swallowing Function: CNMT observed patient with several trials of ice chips, thin via tsp, thin via cup, and puree tsp in which patient appeared to tolerate as he did not exhibit any overt clinical s/sx of aspiration or difficulty with mastication.
Patient and his shared that at home patient typically eats softer solids and thin liquids. Of note, patient remains high risk for aspiration given his clinical presentation (wax/wane alertness) and CXR.
Given patient's recent CXR and clinical presentation, recommend trial of IDDSI 4 puree solids and thin liquids with assistance to ensure tolerance. CNMT will upgrade solids as clinically appropriate.
Recommendations:
1) Trial of IDDSI 4; puree solids and thin liquids
2) Assistance with PO
3) Medications as tolerated
4) Consideration of further speech evaluation given dysarthric speech
Plan: CNMT will continue to follow to ensure tolerance; pending hospitalization.
--- NOTE | 2025-02-24 17:22 | CON.PUL ---
Addendum entered and electronically signed by William Padilla MD 02/26/25 00:23:
Patient was seen and evaluated on 02/25/2025
Original Note:
Consultation
Consultation Request
Date/Time Consultation Requested: 02/24/2025 - 1303
Date/Time Consultation Performed: 02/24/2025 - 170
Requesting Provider: Dr. Yi
Performing Provider: Dr. Padilla
Reason for Consultation: SOB/lung mass
Medical History
-
Chief Complaint: Reduced appetite, difficulty sleeping and hallucinations
History of Present Illness:
74-year-old male former tobacco smoker with a past medical history of ICM with recovered EF, stage II diastolic dysfunction, CAD s/p CABG x 5, hypertension, hypercholesterolemia, periodontal disease and history of severe mitral regurgitation s/p
mitral valve repair who presents with fatigue, reduced oral intake, nausea and right-sided groin pain. Previously found to have right hip pain since November 2024. In December he underwent MRI showing a large expansile osseous lesion in the right pubic
bone and superior pubic ramus suspicious for sarcomatous transformation. 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
sarcomatoid carcinoma. He came to the hospital because of increasing right groin pain with fatigue and reduced oral intake. In the ER he was afebrile with heart rate 104, respiratory rate 18, BP low at 93/55 and saturating 96% on room air. Labs
pertinent for leukocytosis to 23.5, anemia to 11.1, sodium 126, creatinine 2.1, calcium 14.8, intact PTH <3.4, and urinalysis with no signs of UTI. Urine and blood cultures collected. CXR shows an enlarged left hilar shadow concerning for
adenopathy versus a central mass, with increased reticulonodular markings throughout the left lung concerning for lymphangitic spread of carcinoma and a left-sided pleural effusion. He was given 2 L NS 0.9% in the ER and admitted to the floor, and
empirically started on antibiotics, with nephrology and hematology consulted. Patient had a repeat CXR on 02/24 showing airspace opacity throughout the left lower lobe and the lingula concerning for pneumonia. Pulmonary service now consulted for
additional management/recommendations.
PMHx: Chronic diastolic heart failure, history of severe mitral regurgitation s/p mitral valve repair, pulmonary hypertension, hypercholesterolemia, hypertension, periodontal disease, CAD s/p CABG x 5, diverticulosis, suspected Paget's disease
PSHx: CABG x 5 (2015), right TKA, Mohs procedure (on face)
Past Medical History
Past Medical History: Other (Above as per HPI)
Past Surgical History: Other (Above as per HPI)
Social History
Tobacco: Former Smoker
Alcohol: Occasional (Social)
Drug: None
Family History
Family History: CAD (Father + mother) and Other (Brother: HIV)
Allergies / Home Medications
Allergies
Allergy/AdvReac Type Severity Reaction Status Date / Time
seasonal Allergy sneezing Uncoded 02/22/25 11:04
Home Medications
�Medication �Instructions �Recorded �Confirmed �Last Taken �Type
atorvastatin 40 mg tablet 40 mg PO DAILY High cholesterol 08/09/19 02/22/25 02/21/25 History
lisinopril 20 mg tablet 20 mg PO DAILY Blood pressure 10/06/21 02/22/25 02/21/25 History
acetaminophen 650 mg 650 mg PO Q4HPRN PRN PAIN 02/22/25 02/22/25 02/21/25 History
tablet,extended release
aspirin 81 mg tablet 81 mg PO DAILY 02/22/25 02/22/25 02/21/25 History
ezetimibe 10 mg tablet 10 mg PO DAILY 02/22/25 02/22/25 02/21/25 History
meloxicam 15 mg tablet 15 mg PO DAILY 02/22/25 02/22/25 02/21/25 History
metoprolol succinate 25 mg 25 mg PO DAILY 02/22/25 02/22/25 02/21/25 History
tablet,extended release 24 hr
Review of Systems
-
History Source: Patient
All other systems: Negative unless noted
Vitals / Labs / Diagnostic Testing
Vital Signs
Temp Pulse Resp BP Pulse Ox
98.3 F 119 16 124/65 94
02/24/25 19:30 02/24/25 19:30 02/24/25 19:30 02/24/25 19:30 02/24/25 19:30
Lab Data
02/24/25 06:44
02/24/25 06:44
Microbiology
02/22/25 12:18 Urine Urine Culture - Final
No Significant Growth
02/23/25 11:51 Blood/Venous Blood Culture - Preliminary
No Growth in 24 hours- Final report to follow
02/23/25 11:11 Blood/Venous Blood Culture - Preliminary
No Growth in 24 hours- Final report to follow
Diagnostic Testing:
Physical Exam
-
HEENT: Normocephalic and Anicteric
Cardiovascular: S1/S2 and Peripheral Edema (negative)
Respiratory: Wheeze (Occasionally heard upon expiration bilaterally), Rales (negative) and Rhonchi (Left base)
GI: Soft, Non Distended, Non Tender and Normal Bowel Sounds
Neurology: Awake, Alert and Tremors (negative)
Skin: Warm and Dry
General: Respiratory Distress (negative), Comfortable, Fever (negative) and Chills (negative)
Assessment
-
Assessment: 74-year-old male former tobacco smoker with a past medical history of ICM with recovered EF, stage II diastolic dysfunction, CAD s/p CABG x 5, hypertension, hypercholesterolemia, periodontal disease and history of severe mitral
regurgitation s/p mitral valve repair who presents with fatigue, reduced oral intake, nausea and right-sided groin pain. Previously found to have right hip pain since November 2024. In December he underwent MRI showing a large expansile osseous lesion
in the right pubic bone and superior pubic ramus suspicious for sarcomatous transformation. He underwent a biopsy of the right pubic bone via Ortho oncologist on 02/19/2025 that showed malignant spindle and epithelioid cell neoplasm consistent with
metastatic sarcomatoid carcinoma. He came to the hospital because of increasing right groin pain with fatigue and reduced oral intake. In the ER he was afebrile with heart rate 104, respiratory rate 18, BP low at 93/55 and saturating 96% on room
air. Labs pertinent for leukocytosis to 23.5, anemia to 11.1, sodium 126, creatinine 2.1, calcium 14.8, intact PTH <3.4, and urinalysis with no signs of UTI. Urine and blood cultures collected. CXR shows an enlarged left hilar shadow concerning
for adenopathy versus a central mass, with increased reticulonodular markings throughout the left lung concerning for lymphangitic spread of carcinoma and a left-sided pleural effusion. He was given 2 L NS 0.9% in the ER and admitted to the floor,
and empirically started on antibiotics, with nephrology and hematology consulted. Patient had a repeat CXR on 02/24 showing airspace opacity throughout the left lower lobe and the lingula concerning for pneumonia. Pulmonary service now consulted
for additional management/recommendations.
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
Paget's disease
Impression:
#Left hilar mass with suspected left lower lobe pneumonia (?postobstructive)
#Leukocytosis
#Acute anemia
#Hyponatremia
#Hypercalcemia suspected to be from malignancy s/p IVF, calcitonin and pamidronate with improvement in calcium levels
#Hypomagnesemia
#Iron deficiency anemia in the setting of AOCD
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
#Evidence of metastatic bone lesions with right lateral 6th rib destruction on CXR (02/24/2025)
Plan:
- Obtain CT Chest with IV contrast (his NOMI has now resolved) to further evaluate this left-sided hilar mass, eval his mediastinal/hilar lymph nodes, and evaluate his airways to see if his LLL bronchi is patent
- We have had no chest imaging of this patient since 2014, and his left lower lobe at that time looked slightly abnormal with mild retrocardiac opacification and increased reticulonodular opacities
- If patient has had any recent CT chest imaging done at an outside institution then we should obtain those imaging reports and actual imaging studies on disc if possible
- If concern persists for a hilar mass then he should obtain an EBUS�bronchoscopy, possibly robotic bronchoscopy. Best modality use will be decided after CT chest obtained
- For now, continue with antibiotics as it does appear he has a left sided pneumonia (lingula + left lower lobe) - currently on Flagyl, ceftriaxone + vancomycin
- Check a sputum culture if patient can produce a decent sample; follow-up MRSA screen and follow-up blood cultures x 2 (collected 02/23); also follow-up urine culture; check urine antigens for Legionella + strep pneumonia
- Trend WBC and monitor temperature curve
- Prior hallucinations was due to hypercalcemia and his calcium level has markedly improved; continue to trend his calcium levels + ionized calcium levels; SPEP is pending; would continue with supplemental vitamin D2 as his level was <12.8. Given
that his PTH intact was low at <3.4, this further confirms suspicion of hypercalcemia of malignancy
- Of note, if patient has a squamous cell carcinoma then this can also explain the hypercalcemia
- Maintain SpO2 >90-94% with supplemental O2 as needed
- Aspiration precautions
- prn nebulized bronchodilators - not currently bronchospastic
- Incentive spirometer encouraged q1hr while awake
- Replete electrolytes with K>4, Mg>2
- Trend H/H and transfuse if needed to keep Hb>7g/dL; keep plt>20k, unless there is concern for bleeding then keep plt>50k
- Maintain euglycemia with goal BG >100 and <180
- DVT ppx: HSQ - -> now that his Cr is normal, would change to LMWH syeda given his underlying malignancy
Code status: DNR/DNI
Would be prudent to have a goals of care discussion before additional aggressive interventions are offered.
Pulmonary service will continue to follow along.
Data:
CXR 02/24/2025:
1. Large amount of left lower lobe opacity which is most likely SEVERE LEFT LOWER LOBE PNEUMONIA (probably postobstructive pneumonia secondary to left lower lobe bronchial occlusion).
2. 4.8 cm irregular shaped density in the left hilum most consistent with LEFT HILAR MALIGNANCY (either primary lung cancer or metastatic disease).
3. Large 7.4 cm DESTRUCTIVE OSSEOUS METASTASIS in the right lateral 6th rib.
4. Mild cardiomegaly.
5. Previous CABG surgery.
Total time spent today was 58 minutes for this encounter. Time includes reviewing laboratory test/imaging results, reviewing pertinent medical records, obtaining and reviewing medical history, performing an appropriate exam, ordering medications,
tests and procedures. Time also includes documentation of this encounter, coordinating patient care and communicating with other healthcare professionals. Total time does not include separately billed tests performed on this date of service.
--- NOTE | 2025-02-24 18:11 | PTCARENOTE ---
Patient tolerating upgraded pureed diet with no signs os aspiration. Awaiting MRSA swab results. Family eager to speak with Oncology. Plan of care ongoing.
[2025-02-25] VITALS (7 sets, daily range): BP systolic 101–121; BP diastolic 47–73; BMI 23.9
[2025-02-25] MEDS: FLAGYL 500 MG 100 IV ×3 (05:46→21:06)
[2025-02-25 06:14] LABS: % Basophils 0.2 % (0-2); % Eosinophils 0.8 % (0-6); % Immature Granulocytes 0.8 % (0-0.5); % Lymphocytes 5.9 % (20.5-51.1); % Neutrophils 85.3 % (42.2-75.2); Absolute Eosinophils 0.1 10^3/uL (0-0.7); Absolute Immature Granulocytes 0.1 10^3/uL (0-0.05); Absolute Monocytes 1.2 10^3/uL (0.1-0.6); Absolute Neutrophils 14.8 10^3/uL (1.4-6.5); Hematocrit 26.5 % (39.0-52.0); Hemoglobin 9.2 g/dL (13.0-18.0); Mean Corp Hgb Conc. 34.7 g/dL (33.0-37.0); Mean Corpuscular Hgb 30.9 pg (27.0-31.0); Mean Corpuscular Volume 88.9 fL (80.0-94.0); Mean Platelet Volume 8.8 fL (7.4-10.4); Nucleated Red Blood Cells % 0 % (-); Platelet Count 250 10^3/uL (130-400); Red Blood Cell Count 2.98 10^6/uL (4.70-6.10); Red Cell Dist. Width 15.4 % (11.5-14.5); White Blood Cell Count 17.3 10^3/uL (4.8-10.8)
[2025-02-25 06:42] LABS: Blood Urea Nitrogen 10 mg/dl (9-20); Calcium 9.2 mg/dl (8.4-10.2); Carbon Dioxide 24 mmol/L (22-30); Chloride 102 mmol/L (98-107); Estimated Creatinine Clearance 103 ml/min; Glucose 80 mg/dl (70-99); Magnesium 1.6 mg/dl (1.6-2.3); Potassium 3.8 mmol/L (3.5-5.1); Sodium 131 mmol/L (135-145); eGFR > 60.00
[2025-02-25] MEDS: VANCOCIN 200 IV ×2 (07:29→18:06)
[2025-02-25 08:53] LABS: Vitamin D 1,25 Dihydroxy 5.2 pg/mL (19.9-79.3)
[2025-02-25] MEDS: MAGNESIUM SULFATE 100 IV (09:25)
[2025-02-25] MEDS: ZETIA 10 MG PO (09:26)
[2025-02-25] MEDS: LIPITOR 40 MG PO (09:26)
[2025-02-25] MEDS: TOPROL XL 25 MG PO (09:26)
[2025-02-25] MEDS: LOW STRENGTH ASPIRIN 81 MG PO (09:26)
[2025-02-25] MEDS: HEPARIN 5000 UNITS SC (09:26)
[2025-02-25] MEDS: TYLENOL 650 MG PO ×2 (09:32→19:26)
--- NOTE | 2025-02-25 09:37 | PHA.VAN.FU ---
Vancomycin Assessment / Plan
- Assessment
Renal Function: Stable
WBC's are: Trending Down
In the past 24 hrs, patient has been: Afebrile
Concomitant Antimicrobials: Ceftriaxone, Metronidazole
- Dosing Plan
Continue: Vanc 1000mg IV q12h
- Monitoring Plan
Peak Level: 615 at 2000
Trough Level: /16 at 0530
- Follow Up
Pharmacy will continue to follow.
Vancomycin Follow UP
- -
Patient Age: 74
Patient Sex: Male
Vancomycin Day #: 3
Indication: Other
Requesting Provider: JAQUELIN
Height / Weight:
Height 5 ft 7 in
Actual Weight 69.144 kg
Pertinent Past Medical History: LUNG MASS; PAGET'S DX
- Vital Signs / Lab Results
Temp Pulse Resp BP Pulse Ox
98.2 F 126 22 121/72 94
02/25/25 08:00 02/25/25 09:26 02/25/25 08:00 02/25/25 09:26 02/25/25 08:00
Lab Results - Hematology
02/22/25 02/23/25 02/24/25
11:29 08:38 06:44
WBC 23.5 H 19.3 H 17.9 H
02/25/25
05:28
WBC 17.3 H
Lab Results - Chemistry
02/22/25 02/23/25 02/24/25
11:29 08:38 06:44
BUN 48 H 26 H 12
Creatinine 2.1 H 0.7 0.5 L
Estimated Creat Clear 29 88 103
Albumin 3.8 2.9 L
02/25/25
05:28
BUN 10
Creatinine 0.5 L
Estimated Creat Clear 103
Albumin
Microbiology Results
02/25/25 02:44 Legionella Urinary Antigen - Final
Urine Negative for Legionella pneumophila Serogroup 1 antigen.
A negative result does not rule out the possiblity of
Legionella infection due to other serogroups or species of
Legionella. Clinical correlation is recommended.
Streptococcus pneumoniae Antigen (M - Final
Negative for Streptococcus pneumoniae antigen.
A negative result does not exclude infection with
Streptococcus pneumoniae. Clinical correlation is
recommended.
02/22/25 12:18 Urine Culture - Final
Urine No Significant Growth
02/23/25 11:51 Blood Culture - Preliminary
Blood/Venous No Growth in 24 hours- Final report to follow
02/23/25 11:11 Blood Culture - Preliminary
Blood/Venous No Growth in 24 hours- Final report to follow
--- NOTE | 2025-02-25 10:11 | W.PN.HOSP.TC ---
Addendum entered and electronically signed by Lacie Yi MD 02/25/25 10:30:
d/w Pulm, recc IR for L thora and check cytology
IR CS placed
updated in person
Original Note:
Today's Communication/Plan
-
see A/P
Assessment / Plan
Assessment / Plan
HPI: 74-year-old male past medical history of possible Paget's disease, ischemic cardiomyopathy with recovered ejection fraction, CAD, hypertension, osteoarthritis; p/w fatigue, poor oral intake, nausea and right groin pain.
He was discovered to have a lesion on his right pubic bone in November after a fall which has been causing him significant pain and ambulatory dysfunction.
He has been prescribed meloxicam and Tylenol for this. He was referred to orthopedics and had a bone biopsy at [facility] few days ago.
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 He is hallucinating at times. He has been very weak and has difficulty performing any activities. No fever. He has had constipation but did have a bowel movement on DOA.
He has had weight loss. No abdominal pain.
He was thought to have Paget's disease in the past but it was not confirmed.
He has chronic shortness of breath with exertion.
His mother had Paget's disease.
He used to drink alcohol and smoke but denies any such activities anymore.
A/P:
# Severe symptomatic hypercalcemia likely secondary to possible Paget's disease with possible sarcomatous transformation versus myeloma
Calcium 14.8 on admission,
cont IV fluids
s/p Pamidronate, calcitonin x4 doses per renal
PTH level < 3.4
Follow PTH related peptide
vitamin D level low (< 12.8), started high dose weekly ergocalciferol
nephrology on board
# Acute kidney injury, likely prerenal/NSAID use and postrenal, resolved
# Acute urinary retention
SCr 2.1 on admission -> 0.5 today
Walker placed 02/23
Hold lisinopril, meloxicam
Off IVF
# Hyponatremia likely due to SIADH, improving
Sodium level 126 in admission -> 131 today, cont to monitor
Monitor sodium level
# Leucocytosis, reactive vs others?
# Probably postobstructive pneumonia secondary to left lower lobe bronchial occlusion
# Incidental finding of lung mass
blood cultures x2 so far negative, urine culture no growth, Urine Legionella/Strep Ag negative
repeat CXR 02/24 noted:
1. Large amount of left lower lobe opacity which is most likely SEVERE LEFT LOWER LOBE PNEUMONIA (probably postobstructive pneumonia secondary to left lower lobe bronchial occlusion).
2. 4.8 cm irregular shaped density in the left hilum most consistent with LEFT HILAR MALIGNANCY (either primary lung cancer or metastatic disease).
3. Large 7.4 cm DESTRUCTIVE OSSEOUS METASTASIS in the right lateral 6th rib.
Follow CT Chest
Cont empiric abx Ceftriaxone/ vanc for now
Follow SPEP/UPEP
Onc on board
Pulm on board
Noted fever 02/23, monitor temp curve
# Sinus tachycardia
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
# Acute metabolic encephalopathy due to hypercalcemia, MS improved
MS back to baseline, awake and conversant
Cleared for pureed per SPL
# Right pubic bone lesion s/p biopsy
right pubic bone biopsy from 02/19 2025 showed metastatic sarcomatoid carcinoma
Onc on board
# Ischemic cardiomyopathy with recovered EF
# CAD
# Essential hypertension
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
Continue aspirin
Cont to hold WEB PRESS OPERATOR lisinopril
# Osteoarthritis
# Hyperlipidemia
Continue Zetia, statin
# Hypomagnesemia
Replete PRN
DNR/DNI
DVT prophylaxis� heparin SQ -> Lovenox SQ with recovered renal function
Dispo: PT recc SNF
total time spent 51 min
Anticipated Discharge: > 48 hours
Subjective/Interval History
-
Date of Service: February 25, 2025
Objective Data
-
Labs:
Laboratory Results
02/25/25
05:28
WBC 17.3 H
Hgb 9.2 L
Hct 26.5 L
Plt Count 250
Sodium 131 L
Potassium 3.8
Chloride 102
Carbon Dioxide 24
BUN 10
Creatinine 0.5 L
Glucose 80
Calcium 9.2
Vital Signs:
Vital Signs
Temp Pulse Resp BP Pulse Ox
36.8 C 126 22 121/72 94
02/25/25 08:00 02/25/25 09:26 02/25/25 08:00 02/25/25 09:26 02/25/25 08:00
I&O
02/24/25 02/25/25 02/26/25
06:59 06:59 06:59
Intake Total 1450 / 1450 340 / 340
Output Total 1900 / 1900 1550 / 1550
Balance -450 / -450 -1210 / -1210
Review of Systems
-
History Source: Patient
All other systems: Reviewed and negative
Physical Exam
-
General: Well Developed, Well Nourished, Comfortable and Conversant
HEENT: Normocephalic, Atraumatic, Nose Appears Normal and Ears Appear Normal; Negative Oxygen
Respiratory: Clear to Auscultation and Non Labored Respirations; Negative Accessory Resp Muscle Use
Cardiac: Regular Rhythm and S1/S2
GI: Soft, Nontender, Nondistended and Normal Bowel Sounds
Genito-urinary: Walker
Skin: Warm and Dry
Neuro: Awake and Alert
Psych: Calm and Intact Judgement/Insight (somewhat )
Data Reviewed
-
Diagnostic Radiology: Image personally visualized and interpreted and Report Reviewed by me
Labs: Labs Reviewed by me
[2025-02-25 11:29] LABS: LDH 546 U/L (120-246); Total Protein 4.9 g/dl (6.3-8.2)
[2025-02-25] MEDS: ROCEPHIN 1000 MG IV (11:54)
[2025-02-25] MEDS: STERILE WATER FOR INJECTION 10 ML IV (11:55)
--- NOTE | 2025-02-25 15:20 | W.PN.NEPH.PH ---
Today's Communication / Plan
-
sgin off
Assessment/Plan
-
Assessment
NOMI
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
Expansile lesion right pelvis status post biopsy 02/19/2025
Hypercalcemia, new in the last 2 months
Leukocytosis
Hypotension
Left hilar prominence
CAD/CABG
NSAID usage
Plan:
serum calcium levels now normal
Hemodynamically stable today
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
Pamidronate was given on admission
Calcitonin 4 doses
NOMI resolved
maintain Walker catheter given persistent straight cath requirement and urinary retention
Unfortunately there is little else we have to offer we will sign off his calcium has now normalized, temporarily, acute kidney injury has resolved
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
-
-
Date of Service: February 25, 2025
CC / HPI / ROS
-
Chief Complaint:
Acute kidney injury
Hypercalcemia
History of Present Illness:
Hemodynamically more stable
Serum calcium Normalized
AK IIresolved
Review of Systems:
Nonoliguric via Walker
No fever
Mental status off remains withdrawn and intermittently aggressive
Labs
-
Labs:
WBC 17.3 10^3/uL (4.8-10.8) H 02/25/25 05:28
RBC 2.98 10^6/uL (4.70-6.10) L 02/25/25 05:28
Hgb 9.2 g/dL (13.0-18.0) L 02/25/25 05:28
Hct 26.5 % (39.0-52.0) L 02/25/25 05:28
Plt Count 250 10^3/uL (130-400) 02/25/25 05:28
Sodium 131 mmol/L (135-145) L 02/25/25 05:28
Potassium 3.8 mmol/L (3.5-5.1) 02/25/25 05:28
Chloride 102 mmol/L (98-107) 02/25/25 05:28
Carbon Dioxide 24 mmol/L (22-30) 02/25/25 05:28
BUN 10 mg/dl (9-20) 02/25/25 05:28
Creatinine 0.5 mg/dL (0.7-1.3) L 02/25/25 05:28
eGFR > 60.00 02/25/25 05:28
Glucose 80 mg/dl (70-99) 02/25/25 05:28
Calcium 9.2 mg/dl (8.4-10.2) 02/25/25 05:28
Phosphorus 3.8 mg/dl (2.5-4.5) 02/22/25 15:04
Albumin 2.9 g/dl (3.5-5.0) L 02/23/25 08:38
Physical Exam
-
Vital Signs:
Vital Signs
Temp Pulse Resp BP Pulse Ox
97.8 F 117 21 108/47 95
02/25/25 12:00 02/25/25 12:00 02/25/25 12:00 02/25/25 12:00 02/25/25 12:00
Cardiovascular:: Regular rate and rhythm
Lung Excursion:: Normal
Abdomen:: Nontender and Soft
Bowel Sounds:: Normal
Extremity Edema:: None: Bilateral:
Walker Catheter: No
--- NOTE | 2025-02-25 16:55 | W.PN.PUL3 ---
Today's Communication / Plan
-
CT Chest shows concern for metastatic lung cancer with a left infra-hilar mass and extensive thoracic lymphadenopathy in addition to osseous metastatic disease and peritoneal mets
Consult IR for supraclavicular lymph node biopsy and left-sided thoracentesis to be sent for cytopathology
Would be prudent to discuss GOC prior to additional invasive procedures
ABx
Follow up infectious workup
PT/OT
Pulmonary service will continue to follow along
Assessment
-
Assessment: 74-year-old male former tobacco smoker with a past medical history of ICM with recovered EF, stage II diastolic dysfunction, CAD s/p CABG x 5, hypertension, hypercholesterolemia, periodontal disease and history of severe mitral
regurgitation s/p mitral valve repair who presents with fatigue, reduced oral intake, nausea and right-sided groin pain. Previously found to have right hip pain since November 2024. In December he underwent MRI showing a large expansile osseous lesion
in the right pubic bone and superior pubic ramus suspicious for sarcomatous transformation. He underwent a biopsy of the right pubic bone via Ortho oncologist on 02/19/2025 that showed malignant spindle and epithelioid cell neoplasm consistent with
metastatic sarcomatoid carcinoma. He came to the hospital because of increasing right groin pain with fatigue and reduced oral intake. In the ER he was afebrile with heart rate 104, respiratory rate 18, BP low at 93/55 and saturating 96% on room
air. Labs pertinent for leukocytosis to 23.5, anemia to 11.1, sodium 126, creatinine 2.1, calcium 14.8, intact PTH <3.4, and urinalysis with no signs of UTI. Urine and blood cultures collected. CXR shows an enlarged left hilar shadow concerning
for adenopathy versus a central mass, with increased reticulonodular markings throughout the left lung concerning for lymphangitic spread of carcinoma and a left-sided pleural effusion. He was given 2 L NS 0.9% in the ER and admitted to the floor,
and empirically started on antibiotics, with nephrology and hematology consulted. Patient had a repeat CXR on 02/24 showing airspace opacity throughout the left lower lobe and the lingula concerning for pneumonia. Pulmonary service now consulted
for additional management/recommendations.
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
Paget's disease
Impression:
#Left infrahilar mass encasing proximal LLL pulmonary artery with left lower lobe post-obstructive pneumonia
#Extensive mediastinal/hilar and supraclavicular lymphadenopathy
#Paraseptal emphysema in upper lobes seen on CT chest 02/25/2025
#Leukocytosis
#Acute anemia
#Hyponatremia
#Hypercalcemia suspected to be from malignancy s/p IVF, calcitonin and pamidronate with improvement in calcium levels
#Hypomagnesemia
#Iron deficiency anemia in the setting of AOCD
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
#Evidence of metastatic bone lesions with right lateral 6th rib destruction on CXR (02/24/2025)
Plan:
- CT Chest with IV contrast performed today showing evidence of metastatic disease with a left hilar mass - this is concerning for stage IV lung cancer, however metastatic disease could be due to his known sarcomatoid carcinoma
- Consult IR for supraclavicular lymph node biopsy and for left sided thoracentesis
- If additional tissue is needed then we can set him up for an EBUS-bronchoscopy for mediastinal/hilar lymph node biopsies and left hilar mass Bx
- Of note, there is no chest imaging of this patient since 2014, and his left lower lobe at that time looked slightly abnormal with mild retrocardiac opacification and increased reticulonodular opacities
- If patient has had any recent CT chest imaging done at an outside institution then we should obtain those imaging reports and actual imaging studies on disc if possible
- Continue with antibiotics for his L-sided pneumonia (lingula + left lower lobe) - currently on Flagyl, ceftriaxone + vancomycin
- Check a sputum culture if patient can produce a decent sample; MRSA screen is negative - -> DC IV vanco; follow-up blood cultures x 2 (collected 02/23); also follow-up urine culture; urine antigens for Legionella + strep pneumonia both negative
- Trend WBC and monitor temperature curve
- Prior hallucinations was due to hypercalcemia and his calcium level has markedly improved; continue to trend his calcium levels + ionized calcium levels; SPEP is pending; would continue with supplemental vitamin D2 as his level was <12.8. Given
that his PTH intact was low at <3.4, this further confirms suspicion of hypercalcemia of malignancy
- Of note, if patient has a pulmonary squamous cell carcinoma then this can also explain the hypercalcemia
- Maintain SpO2 >90-94% with supplemental O2 as needed
- Aspiration precautions
- prn nebulized bronchodilators - not currently bronchospastic
- Incentive spirometer encouraged q1hr while awake
- Replete electrolytes with K>4, Mg>2
- Trend H/H and transfuse if needed to keep Hb>7g/dL; keep plt>20k, unless there is concern for bleeding then keep plt>50k
- Maintain euglycemia with goal BG >100 and <180
- DVT ppx: LMWH
Code status: DNR/DNI
Would be prudent to have a goals of care discussion before aggressive interventions are offered.
Pulmonary service will continue to follow along.
Data:
CXR 02/24/2025:
1. Large amount of left lower lobe opacity which is most likely SEVERE LEFT LOWER LOBE PNEUMONIA (probably postobstructive pneumonia secondary to left lower lobe bronchial occlusion).
2. 4.8 cm irregular shaped density in the left hilum most consistent with LEFT HILAR MALIGNANCY (either primary lung cancer or metastatic disease).
3. Large 7.4 cm DESTRUCTIVE OSSEOUS METASTASIS in the right lateral 6th rib.
4. Mild cardiomegaly.
5. Previous CABG surgery.
CT Chest with IV contrast 02/25/2025:
1. LARGE 6.3 cm MALIGNANT MASS in the superior segment of the LEFT LOWER LOBE extending into the left hilum and encasing the left lower lobe pulmonary artery and bronchus.
2. Extensive metastatic mediastinal, bilateral hilar, and bilateral supraclavicular lymphadenopathy.
3. Peribronchovascular spread of malignancy into the left upper lobe.
4. MULTIFOCAL OSSEOUS METASTATIC DISEASE including a large destructive metastasis in the left T5 vertebra and a large lytic metastasis in the right lateral 6th rib.
5. Large bilateral adrenal metastases.
6. Large metastatic lymph nodes in the right upper quadrant.
7. Large peritoneal metastases in the left upper quadrant.
8. SEVERE LEFT LOWER LOBE PNEUMONIA.
9. Moderate-sized left pleural effusion.
10. Small right pleural effusion.
11. Previous CABG surgery.
Total time spent today was 38 minutes for this encounter. Time includes reviewing laboratory test/imaging results, reviewing pertinent medical records, obtaining and reviewing medical history, performing an appropriate exam, ordering medications,
tests and procedures. Time also includes documentation of this encounter, coordinating patient care and communicating with other healthcare professionals. Total time does not include separately billed tests performed on this date of service.
Subjective Data
-
Date of Service:
Date of Service: February 25, 2025
Chief Complaint: Pulmonary Follow Up
Subjective:
Pt seen earlier this afternoon (late note entry). He is resting in bed in NAD. On room air breathing comfortably. Denies SOB or chest pain.
Review of Systems
General: Other (negative unless mentioned above)
Objective Data
Data Reviewed
Vital Signs / I&O / Oxygen:
Vital Signs
Temp Pulse Resp BP Pulse Ox
98.2 F 126 22 121/72 94
02/25/25 08:00 02/25/25 09:26 02/25/25 08:00 02/25/25 09:26 02/25/25 08:00
Intake and Output
02/24/25 02/25/25 02/26/25
06:59 06:59 06:59
Intake Total 1450 / 1450 340 / 340
Output Total 1900 / 1900 1550 / 1550
Balance -450 / -450 -1210 / -1210
SaO2 94
Nasal Cannula flow liters per 2
minute
Physical Exam
General: Respiratory Distress (negative), Comfortable, Chills (negative) and Sweats (negative)
HEENT: Normocephalic and Anicteric
Cardiovascular: S1-S2, Rub (negative) and Peripheral Edema (negative)
Respiratory: Wheeze (Occasionally hearrd in left mid-lung), Crackles (negative), Rhonchi (left base) and Non-Labored Respirations
GI: Soft, Non Distended, Non Tender and Normal Bowel Sounds
Neurology: Awake, Alert and Tremors (negative)
Skin: Warm, Dry, Cyanosis (negative) and Jaundice (negative)
Labs/Micro/Reports
Lab Data
02/25/25 05:28
02/25/25 05:28
Microbiology
02/25/25 02:44 Urine Legionella Urinary Antigen - Final
Negative for Legionella pneumophila Serogroup 1 antigen.
A negative result does not rule out the possiblity of
Legionella infection due to other serogroups or species of
Legionella. Clinical correlation is recommended.
02/25/25 02:44 Urine Streptococcus pneumoniae Antigen (M - Final
Negative for Streptococcus pneumoniae antigen.
A negative result does not exclude infection with
Streptococcus pneumoniae. Clinical correlation is
recommended.
02/22/25 12:18 Urine Urine Culture - Final
No Significant Growth
02/23/25 11:51 Blood/Venous Blood Culture - Preliminary
No Growth in 24 hours- Final report to follow
02/23/25 11:11 Blood/Venous Blood Culture - Preliminary
No Growth in 24 hours- Final report to follow
[2025-02-25] MEDS: LOVENOX 40 MG SC (17:24)
--- NOTE | 2025-02-25 17:39 | PTCARENOTE ---
Patient's stool was + for heme occult test. MD notified and advised continue to monitor stool.
[2025-02-25 21:51] LABS: Vancomycin Peak 15.8 ug/ml (18-26)
[2025-02-26] VITALS (10 sets, daily range): BP systolic 101–132; BP diastolic 49–68; BMI 23.6
[2025-02-26 00:12] LABS: 24 Hour Urine Total Volume Random mL; Urine Collection Length Random hr; Urine Free Lambda Light Chains 2.09 mg/L (0.00-3.79)
[2025-02-26 05:28] LABS: % Basophils 0.3 % (0-2); % Eosinophils 0.4 % (0-6); % Immature Granulocytes 0.8 % (0-0.5); % Lymphocytes 6.1 % (20.5-51.1); % Monocytes 7.5 % (1.7-9.3); % Neutrophils 84.9 % (42.2-75.2); Absolute Basophils 0.1 10^3/uL (0-0.2); Absolute Eosinophils 0.1 10^3/uL (0-0.7); Absolute Immature Granulocytes 0.2 10^3/uL (0-0.05); Absolute Lymphocytes 1.3 10^3/uL (1.2-3.4); Absolute Monocytes 1.6 10^3/uL (0.1-0.6); Absolute Neutrophils 17.9 10^3/uL (1.4-6.5); Hematocrit 28.9 % (39.0-52.0); Hemoglobin 9.9 g/dL (13.0-18.0); Mean Corp Hgb Conc. 34.3 g/dL (33.0-37.0); Mean Corpuscular Hgb 30.3 pg (27.0-31.0); Mean Corpuscular Volume 88.4 fL (80.0-94.0); Mean Platelet Volume 8.8 fL (7.4-10.4); Nucleated Red Blood Cells % 0 % (-); Platelet Count 295 10^3/uL (130-400); Red Blood Cell Count 3.27 10^6/uL (4.70-6.10); Red Cell Dist. Width 15.3 % (11.5-14.5); White Blood Cell Count 21.1 10^3/uL (4.8-10.8)
[2025-02-26] MEDS: FLAGYL 500 MG 100 IV (05:36)
[2025-02-26 05:45] LABS: Blood Urea Nitrogen 14 mg/dl (9-20); Carbon Dioxide 24 mmol/L (22-30); Chloride 105 mmol/L (98-107); Estimated Creatinine Clearance 103 ml/min; Glucose 106 mg/dl (70-99); Potassium 3.8 mmol/L (3.5-5.1); Sodium 134 mmol/L (135-145); eGFR > 60.00
[2025-02-26 05:47] LABS: Vancomycin Trough 7.7 ug/ml (5-20)
[2025-02-26] MEDS: VANCOCIN 200 IV (07:37)
[2025-02-26] MEDS: TOPROL XL PO ×2 (07:46→07:48)
[2025-02-26] MEDS: LOW STRENGTH ASPIRIN 81 MG PO (07:46)
[2025-02-26] MEDS: ZETIA 10 MG PO (07:46)
[2025-02-26] MEDS: LIPITOR 40 MG PO (07:46)
--- NOTE | 2025-02-26 08:08 | W.PN.ONC2 ---
Today's Communication / Plan
-
continue medical management per primary service
OP follow up with [facility] for further malignancy management
Impression
Impression
Expansile lesion right pelvis status post biopsy 02/19/2025 diagnostic for malignant spindle and epithelioid cell neoplasm most consistent with metastatic sarcomatoid carcinoma
left hilar shadow, which is concerning for adenopathy and/or central mass
scattered throughout the left lung, and raises some concern for lymphangitic spread of carcinoma and paratracheal lymphadenopathy
Hypercalcemia of malignancy s/p pamidronate, calcitonin, NS IVF -resolved
Leukocytosis
hyponatremia -improved
NOMI -resolved
Anemia
CAD/CABG
NSAID usage
Plan
Plan
newly diagnosed malignant spindle and epithelioid cell neoplasm most consistent with metastatic sarcomatoid carcinoma
Goals remain restorative
plans to follow up Dr. Dozier, orthopedic oncology at [facility] upon d/c
Subjective/Objective
Subjective
denies pain or bleeding
no hypotension or hypoixa
afebrile
Vital Signs:
Vital Signs
Temp Pulse Resp BP Pulse Ox
97.8 F 99 16 108/64 95
02/26/25 03:57 02/26/25 03:57 02/26/25 03:57 02/26/25 07:48 02/26/25 03:57
Lab Results:
Laboratory Data
WBC 21.1 10^3/uL (4.8-10.8) H 02/26/25 05:16
Hgb 9.9 g/dL (13.0-18.0) L 02/26/25 05:16
Plt Count 295 10^3/uL (130-400) 02/26/25 05:16
eGFR > 60.00 02/26/25 05:16
Physical Exam
HEENT: Moist Mucous Membranes; No Jaundice
Cardiology: Other (irreg, irreg)
Pulmonary: Clear
GI: Soft
Extremities: Pulses Present; No Edema
Neuro: Non Focal
--- NOTE | 2025-02-26 08:38 | PHA.VAN.FU ---
Vancomycin Assessment / Plan
- Assessment
Renal Function: Stable
WBC's are: Trending Up
In the past 24 hrs, patient has been: Afebrile
Concomitant Antimicrobials: ceftriaxone, metronidazole
- Assessment - Therapeutic Drug Monitoring
Extrapolated Cmax (mcg/mL): 19.5
Peak level was drawn: Appropriately (drawn ~2.3H after end of infusion)
Extrapolated Cmin (mcg/mL): 7.1
Trough Drawn: Appropriately
Levels were drawn: At steady state (levels drawn after 4th maintenance dose)
Calculated AUC (mcg*h/mL): 297
Calculated ke: 0.0916
Calculated half life (H): 7.6
Calculated Vd (L): 73 (1.07 L/kg)
Calculated Vanc CL (ml/min): 112
- Dosing Plan
Adjust Regimen to: Vanc 1500mg Q12H starting at 1800
New Regimen Predicts: AUC (477), Peak (30.7), Trough (11.7)
- Monitoring Plan
No level(s) ordered at this time: consider in next few days
- Follow Up
Pharmacy will continue to follow.
Vancomycin Follow UP
- -
Patient Age: 74
Patient Sex: Male
Vancomycin Day #: 4
Indication: Other
Requesting Provider: Dr. Yi
Pertinent Antimicrobial Allergies:
no pertinent antibiotic allergies
Height / Weight:
Height 5 ft 7 in
Actual Weight 68.266 kg
Pertinent Past Medical History: Metastatic sarcomatoid carcinoma
- Vital Signs / Lab Results
Temp Pulse Resp BP Pulse Ox
97.8 F 99 16 108/64 95
02/26/25 03:57 02/26/25 03:57 02/26/25 03:57 02/26/25 07:48 02/26/25 03:57
Lab Results - Hematology
02/23/25 02/24/25 02/25/25
08:38 06:44 05:28
WBC 19.3 H 17.9 H 17.3 H
02/26/25
05:16
WBC 21.1 H
Lab Results - Chemistry
02/23/25 02/24/25 02/25/25
08:38 06:44 05:28
BUN 26 H 12 10
Creatinine 0.7 0.5 L 0.5 L
Estimated Creat Clear 88 103 103
Albumin 2.9 L
02/26/25
05:16
BUN 14
Creatinine 0.5 L
Estimated Creat Clear 103
Albumin
Microbiology Results
02/24/25 13:40 MRSA Screen - Final
Nose No Methicillin Resistant Staphylococcus aureus isolated.
02/23/25 11:51 Blood Culture - Preliminary
Blood/Venous No Growth in 48 hours- Final report to follow
02/23/25 11:11 Blood Culture - Preliminary
Blood/Venous No Growth in 48 hours- Final report to follow
02/25/25 02:44 Legionella Urinary Antigen - Final
Urine Negative for Legionella pneumophila Serogroup 1 antigen.
A negative result does not rule out the possiblity of
Legionella infection due to other serogroups or species of
Legionella. Clinical correlation is recommended.
Streptococcus pneumoniae Antigen (M - Final
Negative for Streptococcus pneumoniae antigen.
A negative result does not exclude infection with
Streptococcus pneumoniae. Clinical correlation is
recommended.
02/22/25 12:18 Urine Culture - Final
Urine No Significant Growth
Therapeutic Drug Monitoring
Vancomycin Peak 15.8 ug/ml (18-26) L 02/25/25 21:25
Vancomycin Trough 7.7 ug/ml (5-20) 02/26/25 05:16
--- NOTE | 2025-02-26 10:21 | W.PN.HOSP.TC ---
Today's Communication/Plan
-
see A/P
Assessment / Plan
Assessment / Plan
HPI: 74-year-old male past medical history of possible Paget's disease, ischemic cardiomyopathy with recovered ejection fraction, CAD, hypertension, osteoarthritis; p/w fatigue, poor oral intake, nausea and right groin pain.
He was discovered to have a lesion on his right pubic bone in November after a fall which has been causing him significant pain and ambulatory dysfunction.
He has been prescribed meloxicam and Tylenol for this. He was referred to orthopedics and had a bone biopsy at [facility] few days ago.
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 He is hallucinating at times. He has been very weak and has difficulty performing any activities. No fever. He has had constipation but did have a bowel movement on DOA.
He has had weight loss. No abdominal pain.
He was thought to have Paget's disease in the past but it was not confirmed.
He has chronic shortness of breath with exertion.
His mother had Paget's disease.
He used to drink alcohol and smoke but denies any such activities anymore.
A/P:
# Severe symptomatic hypercalcemia POA, unclear cause
Calcium 14.8 on admission -> 9.0 today
s/p IV fluids, s/p Pamidronate and calcitonin x4 doses per renal
PTH level < 3.4
Follow PTH related peptide
vitamin D level low (< 12.8), started high dose weekly ergocalciferol
nephrology on board
# Acute kidney injury, likely prerenal/NSAID use and postrenal, resolved
# Acute urinary retention
SCr 2.1 on admission -> 0.5 today
Walker placed 02/23
Hold lisinopril, meloxicam
Off IVF
# Hyponatremia likely due to SIADH, improving
Sodium level 126 in admission -> 134 today, cont to monitor
Monitor sodium level
# Leucocytosis, reactive vs others (underlying malignancy?)
# Probably postobstructive pneumonia secondary to left lower lobe bronchial occlusion
# Incidental finding of lung mass
blood cultures x2 so far negative, urine culture no growth, Urine Legionella/Strep Ag negative
repeat CXR 02/24 noted:
1. Large amount of left lower lobe opacity which is most likely SEVERE LEFT LOWER LOBE PNEUMONIA (probably postobstructive pneumonia secondary to left lower lobe bronchial occlusion).
2. 4.8 cm irregular shaped density in the left hilum most consistent with LEFT HILAR MALIGNANCY (either primary lung cancer or metastatic disease).
3. Large 7.4 cm DESTRUCTIVE OSSEOUS METASTASIS in the right lateral 6th rib.
CT Chest :
1. LARGE 6.3 cm MALIGNANT MASS in the superior segment of the LEFT LOWER LOBE extending into the left hilum and encasing the left lower lobe pulmonary artery and bronchus.
2. Extensive metastatic mediastinal, bilateral hilar, and bilateral supraclavicular lymphadenopathy.
3. Peribronchovascular spread of malignancy into the left upper lobe.
4. MULTIFOCAL OSSEOUS METASTATIC DISEASE including a large destructive metastasis in the left T5 vertebra and a large lytic metastasis in the right lateral 6th rib.
5. Large bilateral adrenal metastases.
6. Large metastatic lymph nodes in the right upper quadrant.
7. Large peritoneal metastases in the left upper quadrant.
8. SEVERE LEFT LOWER LOBE PNEUMONIA.
9. Moderate-sized left pleural effusion.
Cont empiric abx Ceftriaxone/ vanc for now
IR CS for L thora and supraclavicular LN biopsy
Follow thora lab and cytology
Follow supraclavicular LN biopsy path
Follow SPEP/UPEP
Onc on board
Pulm on board
Noted fever 02/23, monitor temp curve
# Sinus tachycardia
Restarted BAKERY MANAGER Toprol 25 mg with holding parameter
# Acute metabolic encephalopathy due to hypercalcemia, MS improved
MS back to baseline, awake and conversant
Cleared for pureed per SPL
# Recent Right pubic bone lesion s/p biopsy
right pubic bone biopsy from 02/19 2025 showed metastatic sarcomatoid carcinoma
Onc on board
# Ischemic cardiomyopathy with recovered EF
# CAD
# Essential hypertension
Restart BAKERY MANAGER Toprol 25 mg with holding parameter
Continue aspirin
Cont to hold BAKERY MANAGER lisinopril
# Osteoarthritis
# Hyperlipidemia
Continue Zetia, statin
# Hypomagnesemia
Replete PRN
DNR/DNI
DVT prophylaxis- Lovenox SQ with recovered renal function
Dispo: PT recc SNF
DW Pulm
DW IR
updated in person
total time spent 51 min
Anticipated Discharge: > 48 hours
Subjective/Interval History
-
Date of Service: February 26, 2025
Objective Data
-
Labs:
Laboratory Results
02/26/25
05:16
WBC 21.1 H
Hgb 9.9 L
Hct 28.9 L
Plt Count 295
Sodium 134 L
Potassium 3.8
Chloride 105
Carbon Dioxide 24
BUN 14
Creatinine 0.5 L
Glucose 106 H
Calcium 9.0
Vital Signs:
Vital Signs
Temp Pulse Resp BP Pulse Ox
36.8 C 128 18 108/64 93
02/26/25 07:00 02/26/25 07:00 02/26/25 07:00 02/26/25 07:48 02/26/25 07:00
I&O
02/25/25 02/26/25 02/27/25
06:59 06:59 06:59
Intake Total 340 / 340 200 / 200
Output Total 1550 / 1550 950 / 950
Balance -1210 / -1210 -950 / -950 200 / 200
Review of Systems
-
History Source: Patient
All other systems: Reviewed and negative
Physical Exam
-
General: Well Developed, Well Nourished, Comfortable and Conversant
HEENT: Normocephalic, Atraumatic, Nose Appears Normal and Ears Appear Normal; Negative Oxygen
Respiratory: Clear to Auscultation and Non Labored Respirations; Negative Accessory Resp Muscle Use
Cardiac: Regular Rhythm and S1/S2
GI: Soft, Nontender, Nondistended and Normal Bowel Sounds
Genito-urinary: Walker
Skin: Warm and Dry
Neuro: Awake and Alert
Psych: Calm and Intact Judgement/Insight (somewhat )
Data Reviewed
-
Diagnostic Radiology: Image personally visualized and interpreted and Report Reviewed by me
Labs: Labs Reviewed by me
[2025-02-26] MEDS: UNASYN IV ×3 (10:38→21:01)
[2025-02-26] MEDS: STERILE WATER FOR INJECTION IV (11:54)
--- NOTE | 2025-02-26 12:01 | W.PN.PUL3 ---
Today's Communication / Plan
-
- Start IV Unasyn, discontinue IV vancomycin/Rocephin/Flagyl
- Follow-up on supraclavicular lymph node biopsy, pleural fluid cytology and fluid analysis
Assessment
-
Assessment: 74-year-old male former tobacco smoker with a past medical history of ICM with recovered EF, stage II diastolic dysfunction, CAD s/p CABG x 5, hypertension, hypercholesterolemia, periodontal disease and history of severe mitral
regurgitation s/p mitral valve repair who presents with fatigue, reduced oral intake, nausea and right-sided groin pain. Previously found to have right hip pain since November 2024. In December he underwent MRI showing a large expansile osseous lesion
in the right pubic bone and superior pubic ramus suspicious for sarcomatous transformation. He underwent a biopsy of the right pubic bone via Ortho oncologist on 02/19/2025 that showed malignant spindle and epithelioid cell neoplasm consistent with
metastatic sarcomatoid carcinoma. He came to the hospital because of increasing right groin pain with fatigue and reduced oral intake. In the ER he was afebrile with heart rate 104, respiratory rate 18, BP low at 93/55 and saturating 96% on room
air. Labs pertinent for leukocytosis to 23.5, anemia to 11.1, sodium 126, creatinine 2.1, calcium 14.8, intact PTH <3.4, and urinalysis with no signs of UTI. Urine and blood cultures collected. CXR shows an enlarged left hilar shadow concerning
for adenopathy versus a central mass, with increased reticulonodular markings throughout the left lung concerning for lymphangitic spread of carcinoma and a left-sided pleural effusion. He was given 2 L NS 0.9% in the ER and admitted to the floor,
and empirically started on antibiotics, with nephrology and hematology consulted. Patient had a repeat CXR on 02/24 showing airspace opacity throughout the left lower lobe and the lingula concerning for pneumonia. Pulmonary service now consulted
for additional management/recommendations.
Chronic conditions [employer]: Chronic diastolic heart failure, history of severe mitral regurgitation s/p mitral valve repair, pulmonary hypertension, hypercholesterolemia, hypertension, periodontal disease, CAD s/p CABG x 5, diverticulosis, suspected
Paget's disease
#1. Left infrahilar mass encasing proximal LLL pulmonary artery with left lower lobe post-obstructive pneumonia
- MRSA screen negative, discontinue IV vancomycin
- Start IV Unasyn, discontinue ceftriaxone and Flagyl
- Follow-up on sputum cultures
- Lymphangitic spread of malignancy also in differential diagnosis
#2. Extensive mediastinal/hilar and supraclavicular lymphadenopathy with lung mass and pleural effusion
- High pretest probability of underlying malignancy, ?primary lung cancer versus metastasis
- Pleural effusion concerning for malignancy. IR guided thoracentesis today with cytology for pleural fluid
- IR guided supraclavicular lymph node biopsy for tissue diagnosis. If nondiagnostic, can pursue bronchoscopy and EBUS-TBNA for tissue sampling
#3. Paraseptal emphysema
- Patient reports smoking from age 19 up until 66, about 1 pack/day, close to [id number] smoking history
- No wheezing on exam, does not report using any inhalers at baseline
- Patient needs outpatient pulmonary function testing for further evaluation
#4. Recent diagnosis of Metastatic sarcomatoid carcinoma via right pubic bone biopsy on 02/19/2025 showing malignant spindle and epithelioid cell neoplasm
- Evidence of metastatic bone lesions with right lateral 6th rib destruction on CXR (02/24/2025)
- Await supraclavicular lymph node biopsy, oncology consult
DVT ppx: LMWH
Prognosis is poor
Total time spent on this consultation/encounter _48___ minutes which includes review of history, physical exam, medications, laboratory data, personal review of imaging, extensive review of outpatient records, discussion with care team and
respiratory therapy.
Data:
CXR 02/24/2025:
1. Large amount of left lower lobe opacity which is most likely SEVERE LEFT LOWER LOBE PNEUMONIA (probably postobstructive pneumonia secondary to left lower lobe bronchial occlusion).
2. 4.8 cm irregular shaped density in the left hilum most consistent with LEFT HILAR MALIGNANCY (either primary lung cancer or metastatic disease).
3. Large 7.4 cm DESTRUCTIVE OSSEOUS METASTASIS in the right lateral 6th rib.
4. Mild cardiomegaly.
5. Previous CABG surgery.
CT Chest with IV contrast 02/25/2025:
1. LARGE 6.3 cm MALIGNANT MASS in the superior segment of the LEFT LOWER LOBE extending into the left hilum and encasing the left lower lobe pulmonary artery and bronchus.
2. Extensive metastatic mediastinal, bilateral hilar, and bilateral supraclavicular lymphadenopathy.
3. Peribronchovascular spread of malignancy into the left upper lobe.
4. MULTIFOCAL OSSEOUS METASTATIC DISEASE including a large destructive metastasis in the left T5 vertebra and a large lytic metastasis in the right lateral 6th rib.
5. Large bilateral adrenal metastases.
6. Large metastatic lymph nodes in the right upper quadrant.
7. Large peritoneal metastases in the left upper quadrant.
8. SEVERE LEFT LOWER LOBE PNEUMONIA.
9. Moderate-sized left pleural effusion.
10. Small right pleural effusion.
11. Previous CABG surgery.
Subjective Data
-
Date of Service:
Date of Service: February 26, 2025
Chief Complaint: Pulmonary Follow Up
Subjective:
Patient comfortably sitting in bed in no acute distress.
Review of Systems
Genitourinary: Other (All 14 systems reviewed and negative except as stated above in the history of present illness. Reports cough and orthopnea.)
Objective Data
Data Reviewed
Vital Signs / I&O / Oxygen:
Vital Signs
Temp Pulse Resp BP Pulse Ox
98.3 F 128 18 108/64 93
02/26/25 07:00 02/26/25 07:00 02/26/25 07:00 02/26/25 07:48 02/26/25 07:00
Intake and Output
02/25/25 02/26/25 02/27/25
06:59 06:59 06:59
Intake Total 340 / 340 200 / 200
Output Total 1550 / 1550 950 / 950
Balance -1210 / -1210 -950 / -950 200 / 200
SaO2 93
Nasal Cannula flow liters per 2
minute
Physical Exam
General: Respiratory Distress (negative) and Comfortable
HEENT: Normocephalic and Anicteric
Cardiovascular: S1-S2, Rub (negative) and Peripheral Edema (negative)
Respiratory: Crackles (negative), Rhonchi (left base) and Non-Labored Respirations
GI: Soft, Non Distended, Non Tender and Normal Bowel Sounds
Neurology: Awake and Alert
Skin: Warm and Dry
Labs/Micro/Reports
Lab Data
02/26/25 05:16
02/26/25 05:16
Microbiology
02/23/25 11:51 Blood/Venous Blood Culture - Preliminary
No Growth in 72 hours- Final report to follow
02/23/25 11:11 Blood/Venous Blood Culture - Preliminary
No Growth in 72 hours- Final report to follow
02/24/25 13:40 Nose MRSA Screen - Final
No Methicillin Resistant Staphylococcus aureus isolated.
02/25/25 02:44 Urine Legionella Urinary Antigen - Final
Negative for Legionella pneumophila Serogroup 1 antigen.
A negative result does not rule out the possiblity of
Legionella infection due to other serogroups or species of
Legionella. Clinical correlation is recommended.
02/25/25 02:44 Urine Streptococcus pneumoniae Antigen (M - Final
Negative for Streptococcus pneumoniae antigen.
A negative result does not exclude infection with
Streptococcus pneumoniae. Clinical correlation is
recommended.
02/22/25 12:18 Urine Urine Culture - Final
No Significant Growth
[2025-02-26 15:02] LABS: Body Fluid pH 7.31
[2025-02-26 15:09] LABS: Body Fluid Glucose 63 mg/dl; Body Fluid LDH 337 U/L; Body Fluid Mononuclear 30.8 %; Body Fluid Polymorphonuclear 69.2 %; Body Fluid Protein 2.6 g/dl; Body Fluid WBC 621 /CUMM
--- NOTE | 2025-02-26 15:11 | CM ---
CM reviewed chart, patient seen bedside with sister, Newton, patient recently returned to room from procedure. Patient/family would like to await results of biopsy, discussed recommendation for rehab and open to discussing rehab once they have more
answers. CM will continue to follow for all discharge planning needs.
Plan; likely SNF, will continue to follow for progress in hospital
[2025-02-26 15:18] LABS: Body Fluid Second Tech SS
[2025-02-26] MEDS: LOVENOX 40 MG SC (16:12)
[2025-02-26] MEDS: FLUSH (NSS) 1 FLUSH IV (16:12)
--- NOTE | 2025-02-26 16:33 | W.PN.UPDATE ---
Update Note
Progress Note Update
I spoke with Dr. Dozier, [facility] surgical oncology who is presenting Luis's case at multidisciplinary conference to determine next steps in treatment and she will call pt/ with plan. I called to provide updates.
--- NOTE | 2025-02-26 17:40 | PTCARENOTE ---
Dr. Treadwell made aware patient in sinus tachycardia 120-130 bpm, alternating intermittently with a-fib (up to 145 bpm with activity); also noted that once daily Toprol was held this am per the parameter for BP 108/64. BP is now 136/71. POX 97% on room
air. Patient currently resting in bed. Will obtain EKG.
--- NOTE | 2025-02-26 18:09 | PTCARENOTE ---
Dr. Treadwell updated on EKG showing A-fib in the chart and that IV lopressor not given at this time (due to current heart rate of 115s a-fib does not meet prn parameter of HR >140). Patient remains in bed. Will continue to monitor.
[2025-02-26 20:58] LABS: Angiotensin-1-converting Enzym <10 U/L (16-85)
[2025-02-26] MEDS: LOPRESSOR 5 MG IV (21:33)
[2025-02-27] VITALS (8 sets, daily range): BP systolic 98–145; BP diastolic 53–81; PULSE 108–141; O2SAT 93; BMI 23.7
[2025-02-27] MEDS: UNASYN IV ×4 (04:57→21:47)
[2025-02-27 06:05] LABS: Hematocrit 27.8 % (39.0-52.0); Hemoglobin 9.7 g/dL (13.0-18.0); Mean Corp Hgb Conc. 34.9 g/dL (33.0-37.0); Mean Corpuscular Hgb 31.2 pg (27.0-31.0); Mean Corpuscular Volume 89.4 fL (80.0-94.0); Mean Platelet Volume 8.8 fL (7.4-10.4); Platelet Count 320 10^3/uL (130-400); Red Blood Cell Count 3.11 10^6/uL (4.70-6.10); Red Cell Dist. Width 15.6 % (11.5-14.5); White Blood Cell Count 25.3 10^3/uL (4.8-10.8)
[2025-02-27 06:27] LABS: Blood Urea Nitrogen 17 mg/dl (9-20); Calcium 8.8 mg/dl (8.4-10.2); Carbon Dioxide 18 mmol/L (22-30); Chloride 107 mmol/L (98-107); Estimated Creatinine Clearance 88 ml/min; Glucose 130 mg/dl (70-99); Potassium 3.5 mmol/L (3.5-5.1); Sodium 134 mmol/L (135-145); eGFR > 60.00
[2025-02-27 07:27] LABS: % Basophils 0.2 % (0-2); % Eosinophils 0.1 % (0-6); % Lymphocytes 6.5 % (20.5-51.1); % Monocytes 7.1 % (1.7-9.3); % Neutrophils 85.1 % (42.2-75.2); Absolute Basophils 0.1 10^3/uL (0-0.2); Absolute Immature Granulocytes 0.3 10^3/uL (0-0.05); Absolute Lymphocytes 1.6 10^3/uL (1.2-3.4); Absolute Monocytes 1.8 10^3/uL (0.1-0.6); Absolute Neutrophils 21.5 10^3/uL (1.4-6.5); Nucleated Red Blood Cells % 0 % (-)
[2025-02-27] MEDS: TOPROL XL 25 MG PO (08:31)
[2025-02-27] MEDS: LOW STRENGTH ASPIRIN 81 MG PO (08:31)
[2025-02-27] MEDS: LIPITOR 40 MG PO (08:31)
[2025-02-27] MEDS: ZETIA 10 MG PO (08:31)
--- NOTE | 2025-02-27 08:49 | W.PN.HOSP.TC ---
Today's Communication/Plan
-
Antibiotics. Biopsy pending
Assessment / Plan
Assessment / Plan
Physical exam:
General: Acute on chronically ill
HEENT: Normocephalic, Atraumatic and Moist Mucous Membranes
Respiratory: Decreased breath sounds bilateral; Negative Wheezes, Rales. Left base rhonchi
Cardiac: Regular Rhythm and S1/S2
GI: Soft, Nontender and Nondistended
Musculoskeletal: Hip/pelvic discomfort. No Clubbing, No Cyanosis and No Edema
Neuro: Awake, Alert and Oriented, no neurological deficits but generalized weakness
Psych: Anxious
A/P:
Left lower lobe postobstructive pneumonia (?lymphangitic spread malignancy) and left lung mass (likely malignant):
Continue IV Unasyn
Follow-up sputum culture
On IDDSI level 4 diet
?need bronchoscopy if diagnostic tests non revealing but await current work up
Updated sister over the phone today, Newton-she stated she is the person to be in contact given her medical background and also understands that as well. She also wants oncology to reach out to her.
Extensive mediastinal, hilar, and supraclavicular adenopathy:
Status post lymph node biopsy on 02/26
Pleural effusion and lung mass:
Status post thoracentesis on 02/26 with exudate results pending cytology
Severe hypercalcemia of malignancy:
Resolved
Status post pamidronate and calcitonin and IV fluid
Metastatic sarcomatoid carcinoma :
Malignant spindle and epithelioid cell neoplasm per biopsy on 02/19 from expansile lseion right pelvis
Follows up with Dr. Dozier orthopedic oncology at [facility]
Our oncology discussed with Dr. Dozier yesterday as per notes
Pain control
Chronic HFpEF:
Monitor volume status closely
History of severe mitral regurgitation:
Status post mitral valve repair in the past
Hypertension:
Usual meds
Hyperlipidemia:
Statin
CAD:
Status post CABG in the past
Continue aspirin, beta-blockers, and statins.
MICHELLE:
Resolved
Multifactorial etiology NSAIDs use, dehydration, postobstructive, hypercalcemia, other
Urinary retention:
Status post Walker
Acute metabolic encephalopathy:
Improving
Has received antipsychotics during this hospital stay
Also michelle and electrolytes improving
Hyponatremia:
Improving
Anemia:
Monitor hemoglobin closely
Stage II sacral pressure injury, POA
DVT prophylaxis:
Lovenox SQ
CODE STATUS:
DNR
Total time spent on today's encounter was 57 minutes which included time spent in counseling the patient/family regarding diagnosis and treatment plan as listed above, goals of care, and symptom management. Case was discussed with nursing staff,
specialists, and care coordinators/case management. All labs and imaging personally reviewed by me. Remainder the time spent in detailed review of previous records, lab data, imaging, and other medical provider documentation.
Anticipated Discharge: > 48 hours
Subjective/Interval History
-
Date of Service: February 27, 2025
Patient denies worsening chest pain or shortness of breath. Afebrile
Objective Data
-
Labs:
Laboratory Results
02/27/25
05:44
WBC 25.3 H
Hgb 9.7 L
Hct 27.8 L
Plt Count 320
Sodium 134 L
Potassium 3.5
Chloride 107
Carbon Dioxide 18 L
BUN 17
Creatinine 0.7
Glucose 130 H
Calcium 8.8
Vital Signs:
Vital Signs
Temp Pulse Resp BP Pulse Ox
98.3 F 125 22 126/72 94
02/27/25 07:00 02/27/25 07:00 02/27/25 07:00 02/27/25 07:00 02/27/25 07:00
I&O
02/26/25 02/27/25 02/28/25
06:59 06:59 06:59
Intake Total 680 / 680
Output Total 950 / 950 375 / 375
Balance -950 / -950 305 / 305
[2025-02-27] MEDS: STERILE WATER FOR INJECTION IV (09:19)
--- NOTE | 2025-02-27 10:02 | W.PN.ONC2 ---
Today's Communication / Plan
-
continue medical management per primary service
Follow-up on supraclavicular lymph node biopsy, pleural fluid cytology and fluid analysis
Dr. Dozier, [facility] surgical oncology who is presenting Luis's case at multidisciplinary conference Wed 02/28 to determine next steps in treatment and she will call pt/ with plan
Impression
Impression
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
right lateral 6th rib
Left infrahilar mass encasing proximal LLL pulmonary artery and Peribronchovascular spread of malignancy into the left upper lobe
Extensive mediastinal/hilar and supraclavicular lymphadenopathy with lung mass and pleural effusion
Large bilateral adrenal metastases
Large metastatic lymph nodes in the right upper quadrant
Large peritoneal metastases in the left upper quadrant
Hypercalcemia of malignancy s/p pamidronate, calcitonin, NS IVF -resolved
Leukocytosis
hyponatremia -improved
NOMI -resolved
Anemia
CAD/CABG
NSAID usage
Plan
Plan
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
Goals remain restorative
plans to follow up Dr. Dozier, orthopedic oncology at [facility] upon d/c
Subjective/Objective
Subjective
afebrile, no hypoxia or hypotension
denies pain or nausea
ambulating to bathroom with assist
Vital Signs:
Vital Signs
Temp Pulse Resp BP Pulse Ox
98.3 F 125 22 126/72 94
02/27/25 07:00 02/27/25 07:00 02/27/25 07:00 02/27/25 07:00 02/27/25 07:00
Lab Results:
Laboratory Data
WBC 25.3 10^3/uL (4.8-10.8) H 02/27/25 05:44
Hgb 9.7 g/dL (13.0-18.0) L 02/27/25 05:44
Plt Count 320 10^3/uL (130-400) 02/27/25 05:44
eGFR > 60.00 02/27/25 05:44
Physical Exam
HEENT: Moist Mucous Membranes; No Jaundice
Cardiology: Other (irreg, irreg)
Pulmonary: Clear
GI: Soft
Extremities: Pulses Present; No Edema
Neuro: Non Focal
--- NOTE | 2025-02-27 10:39 | W.PN.PUL3 ---
Today's Communication / Plan
-
- Continue IV Unasyn
- Follow-up on sputum and pleural fluid cultures
Assessment
-
Assessment: 74-year-old male former tobacco smoker with a past medical history of ICM with recovered EF, stage II diastolic dysfunction, CAD s/p CABG x 5, hypertension, hypercholesterolemia, periodontal disease and history of severe mitral
regurgitation s/p mitral valve repair who presents with fatigue, reduced oral intake, nausea and right-sided groin pain. Previously found to have right hip pain since November 2024. In December he underwent MRI showing a large expansile osseous lesion
in the right pubic bone and superior pubic ramus suspicious for sarcomatous transformation. He underwent a biopsy of the right pubic bone via Ortho oncologist on 02/19/2025 that showed malignant spindle and epithelioid cell neoplasm consistent with
metastatic sarcomatoid carcinoma. He came to the hospital because of increasing right groin pain with fatigue and reduced oral intake. In the ER he was afebrile with heart rate 104, respiratory rate 18, BP low at 93/55 and saturating 96% on room
air. Labs pertinent for leukocytosis to 23.5, anemia to 11.1, sodium 126, creatinine 2.1, calcium 14.8, intact PTH <3.4, and urinalysis with no signs of UTI. Urine and blood cultures collected. CXR shows an enlarged left hilar shadow concerning
for adenopathy versus a central mass, with increased reticulonodular markings throughout the left lung concerning for lymphangitic spread of carcinoma and a left-sided pleural effusion. He was given 2 L NS 0.9% in the ER and admitted to the floor,
and empirically started on antibiotics, with nephrology and hematology consulted. Patient had a repeat CXR on 02/24 showing airspace opacity throughout the left lower lobe and the lingula concerning for pneumonia. Pulmonary service now consulted
for additional management/recommendations.
Chronic conditions [employer]: Chronic diastolic heart failure, history of severe mitral regurgitation s/p mitral valve repair, pulmonary hypertension, hypercholesterolemia, hypertension, periodontal disease, CAD s/p CABG x 5, diverticulosis, suspected
Paget's disease
#1. Left infrahilar mass encasing proximal LLL pulmonary artery with left lower lobe post-obstructive pneumonia
- MRSA screen negative, discontinued IV vancomycin
- Continue IV Unasyn
- Follow-up on sputum cultures
- Lymphangitic spread of malignancy also in differential diagnosis
#2. Extensive mediastinal/hilar and supraclavicular lymphadenopathy with lung mass and pleural effusion
- High pretest probability of underlying malignancy, ?primary lung cancer versus metastasis
- Pleural effusion concerning for malignancy. IR guided thoracentesis 02/26, 1150 mL of fluid removed, exudate by both protein and LDH criteria. Fluid LDH 337. Pleural fluid cultures and cytology pending. If patient turns out to have malignant
pleural effusion and develops rapid reaccumulation, will consider indwelling pleural draining catheter.
- S/p IR guided supraclavicular lymph node biopsy (02/26) for tissue diagnosis. If nondiagnostic, can pursue bronchoscopy and EBUS-TBNA for tissue sampling
#3. Paraseptal emphysema
- Patient reports smoking from age 19 up until 66, about 1 pack/day, close to [id number] smoking history
- No wheezing on exam, does not report using any inhalers at baseline
- Patient needs outpatient pulmonary function testing for further evaluation
#4. Recent diagnosis of Metastatic sarcomatoid carcinoma via right pubic bone biopsy on 02/19/2025 showing malignant spindle and epithelioid cell neoplasm
- Evidence of metastatic bone lesions with right lateral 6th rib destruction on CXR (02/24/2025)
- Await supraclavicular lymph node biopsy results, oncology consult
DVT ppx: LMWH
Prognosis is poor
Total time spent on this consultation/encounter _48___ minutes which includes review of history, physical exam, medications, laboratory data, personal review of imaging, extensive review of outpatient records, discussion with care team and
respiratory therapy.
Data:
CXR 02/24/2025:
1. Large amount of left lower lobe opacity which is most likely SEVERE LEFT LOWER LOBE PNEUMONIA (probably postobstructive pneumonia secondary to left lower lobe bronchial occlusion).
2. 4.8 cm irregular shaped density in the left hilum most consistent with LEFT HILAR MALIGNANCY (either primary lung cancer or metastatic disease).
3. Large 7.4 cm DESTRUCTIVE OSSEOUS METASTASIS in the right lateral 6th rib.
4. Mild cardiomegaly.
5. Previous CABG surgery.
CT Chest with IV contrast 02/25/2025:
1. LARGE 6.3 cm MALIGNANT MASS in the superior segment of the LEFT LOWER LOBE extending into the left hilum and encasing the left lower lobe pulmonary artery and bronchus.
2. Extensive metastatic mediastinal, bilateral hilar, and bilateral supraclavicular lymphadenopathy.
3. Peribronchovascular spread of malignancy into the left upper lobe.
4. MULTIFOCAL OSSEOUS METASTATIC DISEASE including a large destructive metastasis in the left T5 vertebra and a large lytic metastasis in the right lateral 6th rib.
5. Large bilateral adrenal metastases.
6. Large metastatic lymph nodes in the right upper quadrant.
7. Large peritoneal metastases in the left upper quadrant.
8. SEVERE LEFT LOWER LOBE PNEUMONIA.
9. Moderate-sized left pleural effusion.
10. Small right pleural effusion.
11. Previous CABG surgery.
Subjective Data
-
Date of Service:
Date of Service: February 27, 2025
Chief Complaint: Pulmonary Follow Up
Subjective:
Patient comfortable lying in bed, on room air, reports feeling better since he had thoracentesis.
Review of Systems
Genitourinary: Other (No new symptoms reported.)
Objective Data
Data Reviewed
Vital Signs / I&O / Oxygen:
Vital Signs
Temp Pulse Resp BP Pulse Ox
98.3 F 125 22 126/72 94
02/27/25 07:00 02/27/25 07:00 02/27/25 07:00 02/27/25 07:00 02/27/25 07:00
Intake and Output
02/26/25 02/27/25 02/28/25
06:59 06:59 06:59
Intake Total 680 / 680
Output Total 950 / 950 375 / 375
Balance -950 / -950 305 / 305
SaO2 94
Nasal Cannula flow liters per 2
minute
Physical Exam
General: Respiratory Distress (negative) and Comfortable
HEENT: Normocephalic and Anicteric
Cardiovascular: S1-S2, Rub (negative) and Peripheral Edema (negative)
Respiratory: Crackles (negative), Rhonchi (left base, improved) and Non-Labored Respirations
GI: Soft, Non Distended, Non Tender and Normal Bowel Sounds
Neurology: Awake and Alert
Skin: Warm and Dry
Labs/Micro/Reports
Lab Data
02/27/25 05:44
02/27/25 05:44
Microbiology
02/26/25 13:51 Pleural Fluid Gram Stain - Preliminary
02/23/25 11:51 Blood/Venous Blood Culture - Preliminary
No Growth in 72 hours- Final report to follow
02/23/25 11:11 Blood/Venous Blood Culture - Preliminary
No Growth in 72 hours- Final report to follow
02/24/25 13:40 Nose MRSA Screen - Final
No Methicillin Resistant Staphylococcus aureus isolated.
02/25/25 02:44 Urine Legionella Urinary Antigen - Final
Negative for Legionella pneumophila Serogroup 1 antigen.
A negative result does not rule out the possiblity of
Legionella infection due to other serogroups or species of
Legionella. Clinical correlation is recommended.
02/25/25 02:44 Urine Streptococcus pneumoniae Antigen (M - Final
Negative for Streptococcus pneumoniae antigen.
A negative result does not exclude infection with
Streptococcus pneumoniae. Clinical correlation is
recommended.
02/22/25 12:18 Urine Urine Culture - Final
No Significant Growth
[2025-02-27] MEDS: ULTRAM 25 MG PO ×2 (12:51→20:04)
--- NOTE | 2025-02-27 12:57 | CM ---
CM reviewed chart, reviewed with Nurse. Patient seen bedside with sister and , inquiring when PT/OT will see patient, TT to therapy, patient will be seen today. Sister reports patient will be unable to return home with at current level.
Patients sister requesting call from Oncology. CM will continue to follow for all discharge planning needs.
Plan; SNF, will discuss facilities with family, will require auth
--- NOTE | 2025-02-27 14:34 | PTOTSP ---
Dysphagia Therapy
Impression: Suspect WFL-mild dysphagia with elevated risk given acute on chronic conditions/states (i.e., left infrahilar mass encasing proximal LLL pulmonary artery, LLL post obstructive PNA, extensive mediastinal/hilar and supraclavicular
lymphadenopathy with lung mass and pleural effusion, emphysema, and AMS.)
Recommend:
1. IDDSI Level 6 Soft/Bite Sized, Thin Liquids
2. Medications as best tolerated
3. Full supervision, assist as needed
4. Strategies: upright to 90 degrees, PO only when awake/alert, small single sips/bites, slow rate with breaks for breathing
5. Oral care 3x daily
6. Dysphagia f/u to determine if/when solid diet advancement appropriate, instruct in compensations, and determine if instrumental swallowing assessment warranted
[2025-02-27] MEDS: LOVENOX 40 MG SC (17:08)
[2025-02-28] VITALS (8 sets, daily range): BP systolic 113–128; BP diastolic 59–93; PULSE 117–127; O2SAT 89; BMI 24.1
[2025-02-28] MEDS: UNASYN IV ×4 (04:43→21:05)
--- NOTE | 2025-02-28 06:25 | PTCARENOTE ---
There was a [employer] Client [employer] Downtime on 02/28/2025 from 0100 to 02/28/2025 at 0415. Downtime documentation of patient's care, including medication administrations, has been reconciled in the electronic record per guidelines. Refer to the
patient's paper chart under the miscellaneous tab to see printed paper medication records and downtime forms.
[2025-02-28] MEDS: LOW STRENGTH ASPIRIN 81 MG PO (07:46)
[2025-02-28] MEDS: LIPITOR 40 MG PO (07:46)
[2025-02-28] MEDS: ZETIA 10 MG PO (07:46)
[2025-02-28] MEDS: TOPROL XL 25 MG PO (07:46)
[2025-02-28] MEDS: ULTRAM 25 MG PO (07:47)
[2025-02-28 08:04] LABS: Hematocrit 29.3 % (39.0-52.0); Mean Corp Hgb Conc. 34.1 g/dL (33.0-37.0); Mean Corpuscular Hgb 30.6 pg (27.0-31.0); Mean Corpuscular Volume 89.6 fL (80.0-94.0); Mean Platelet Volume 8.9 fL (7.4-10.4); Platelet Count 336 10^3/uL (130-400); Red Blood Cell Count 3.27 10^6/uL (4.70-6.10); White Blood Cell Count 28.2 10^3/uL (4.8-10.8)
--- NOTE | 2025-02-28 08:12 | W.PN.ONC2 ---
Addendum entered and electronically signed by JANET Lemons 02/28/25 16:19:
Case discussed with Dr. 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
with metastatic disease -[place] cancer specialist is happy to provide local oncology support
I called sister, Newton, as request by pt and to provide updates.
Goals remain restorative -planning for rehab to improve PS
Agreeable to MRI brain w &w/o to complete staging -altered mental improved by not at baseline despite correction of calcium
Pain management -increase tramadol from 25mg BID to 50mg BID
Original Note:
Today's Communication / Plan
-
Poor Px.
Awaiting tumor board outcome happening later today at [facility] being presented by his surgical orthopedic oncologist Dr. Grace Dozier MD, MSc
My suspicion is he is not a candidate for aggressive anti-neoplastic therapies in light of his PS but wants to hear from [facility].
Impression
Impression
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
right lateral 6th rib
Left infrahilar mass encasing proximal LLL pulmonary artery and Peribronchovascular spread of malignancy into the left upper lobe
Extensive mediastinal/hilar and supraclavicular lymphadenopathy with lung mass and pleural effusion
Large bilateral adrenal metastases
Large metastatic lymph nodes in the right upper quadrant
Large peritoneal metastases in the left upper quadrant
Hypercalcemia of malignancy s/p pamidronate, calcitonin, NS IVF -resolved
Leukocytosis
hyponatremia -improved
NOMI -resolved
Anemia
CAD/CABG
NSAID usage
Plan
Plan
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
Goals remain restorative
plans to follow up Dr. Dozier, orthopedic oncology at [facility] upon d/c
Subjective/Objective
Chief Complaint
ACS Heme Onc
Subjective
No new c/o. Remains weak.
Vital Signs:
Vital Signs
Temp Pulse Resp BP Pulse Ox
98.7 F 128 14 115/93 92
02/28/25 03:30 02/28/25 03:30 02/28/25 03:30 02/28/25 03:30 02/28/25 03:30
Lab Results:
Laboratory Data
WBC 28.2 10^3/uL (4.8-10.8) H 02/28/25 07:00
Hgb 10.0 g/dL (13.0-18.0) L 02/28/25 07:00
Plt Count 336 10^3/uL (130-400) 02/28/25 07:00
eGFR > 60.00 02/27/25 05:44
Physical Exam
In bed. Weak
[2025-02-28 08:31] LABS: Blood Urea Nitrogen 21 mg/dl (9-20); Calcium 8.9 mg/dl (8.4-10.2); Carbon Dioxide 23 mmol/L (22-30); Chloride 104 mmol/L (98-107); Estimated Creatinine Clearance 103 ml/min; Glucose 97 mg/dl (70-99); Potassium 3.5 mmol/L (3.5-5.1); Sodium 137 mmol/L (135-145); eGFR > 60.00
--- NOTE | 2025-02-28 09:22 | W.PN.HOSP.TC ---
Today's Communication/Plan
-
IV antibiotics. Oncology discussions ongoing
Assessment / Plan
Assessment / Plan
Physical exam:
General: Acute on chronically ill
HEENT: Normocephalic, Atraumatic and Moist Mucous Membranes
Respiratory: Decreased breath sounds bilateral; Negative Wheezes, Rales. Left base rhonchi
Cardiac: Regular Rhythm and S1/S2
GI: Soft, Nontender and Nondistended
Musculoskeletal: Hip/pelvic discomfort. No Clubbing, No Cyanosis and No Edema
Neuro: Awake, Alert and Oriented, no neurological deficits but generalized weakness
Psych: Anxious
A/P:
Left lower lobe postobstructive pneumonia (?lymphangitic spread malignancy) and left lung mass (likely malignant):
Continue IV Unasyn
On IDDSI level 4 diet
?need bronchoscopy if diagnostic tests non revealing but await current work up
Updated sister over the phone yesterday, Newton-she stated she is the person to be in contact given her medical background and also understands that as well. She also wants oncology to reach out to her.
Extensive mediastinal, hilar, and supraclavicular adenopathy:
Status post lymph node biopsy on 02/26
Pleural effusion and lung mass:
Status post thoracentesis on 02/26 with exudate results pending cytology
Severe hypercalcemia of malignancy:
Resolved
Status post pamidronate and calcitonin and IV fluid
Metastatic sarcomatoid carcinoma :
Malignant spindle and epithelioid cell neoplasm per biopsy on 02/19 from expansile lseion right pelvis
Follows up with Dr. Dozier orthopedic oncology at [facility]
Our oncology discussed with Dr. Dozier yesterday as per notes
Pain control
Chronic HFpEF:
Monitor volume status closely
History of severe mitral regurgitation:
Status post mitral valve repair in the past
Hypertension:
Usual meds
Hyperlipidemia:
Statin
CAD:
Status post CABG in the past
Continue aspirin, beta-blockers, and statins.
MICHELLE:
Resolved
Multifactorial etiology NSAIDs use, dehydration, postobstructive, hypercalcemia, other
Urinary retention:
Status post Walker
Acute metabolic encephalopathy:
Improving
Has received antipsychotics during this hospital stay
Also michelle and electrolytes improving
Hyponatremia:
Improving
Anemia:
Monitor hemoglobin closely
Stage II sacral pressure injury, POA
DVT prophylaxis:
Lovenox SQ
CODE STATUS:
DNR
Total time spent on today's encounter was 57 minutes which included time spent in counseling the patient/family regarding diagnosis and treatment plan as listed above, goals of care, and symptom management. Case was discussed with nursing staff,
specialists, and care coordinators/case management. All labs and imaging personally reviewed by me. Remainder the time spent in detailed review of previous records, lab data, imaging, and other medical provider documentation.
Anticipated Discharge: 24 - 48 hours
Subjective/Interval History
-
Date of Service: February 28, 2025
Patient with generalized weakness. Looks frail overall. Afebrile
Objective Data
-
Labs:
Laboratory Results
02/28/25
07:00
WBC 28.2 H
Hgb 10.0 L
Hct 29.3 L
Plt Count 336
Sodium 137
Potassium 3.5
Chloride 104
Carbon Dioxide 23
BUN 21 H
Creatinine 0.6 L
Glucose 97
Calcium 8.9
Vital Signs:
Vital Signs
Temp Pulse Resp BP Pulse Ox
98.3 F 120 20 124/70 91
02/28/25 07:38 02/28/25 07:38 02/28/25 07:38 02/28/25 07:38 02/28/25 07:38
I&O
02/27/25 02/28/25 03/01/25
06:59 06:59 06:59
Intake Total 680 / 680 480 / 480 1180 / 1180
Output Total 375 / 375 300 / 300
Balance 305 / 305 480 / 480 880 / 880
[2025-02-28] MEDS: STERILE WATER FOR INJECTION IV (10:01)
[2025-02-28 11:06] LABS: % Basophils 0.3 % (0-2); % Eosinophils 0.2 % (0-6); % Immature Granulocytes 1.1 % (0-0.5); % Lymphocytes 5.1 % (20.5-51.1); % Monocytes 7.3 % (1.7-9.3); Absolute Basophils 0.1 10^3/uL (0-0.2); Absolute Eosinophils 0.1 10^3/uL (0-0.7); Absolute Immature Granulocytes 0.3 10^3/uL (0-0.05); Absolute Lymphocytes 1.4 10^3/uL (1.2-3.4); Absolute Monocytes 2.1 10^3/uL (0.1-0.6); Absolute Neutrophils 24.3 10^3/uL (1.4-6.5); Nucleated Red Blood Cells % 0.1 % (-)
[2025-02-28] MEDS: TYLENOL 650 MG PO (11:45)
--- NOTE | 2025-02-28 11:51 | W.PN.PUL3 ---
Today's Communication / Plan
-
- Continue IV Unasyn
- Await pleural fluid cytology and supraclavicular lymph node biopsy results
Assessment
-
Assessment: 74-year-old male former tobacco smoker with a past medical history of ICM with recovered EF, stage II diastolic dysfunction, CAD s/p CABG x 5, hypertension, hypercholesterolemia, periodontal disease and history of severe mitral
regurgitation s/p mitral valve repair who presents with fatigue, reduced oral intake, nausea and right-sided groin pain. Previously found to have right hip pain since November 2024. In December he underwent MRI showing a large expansile osseous lesion
in the right pubic bone and superior pubic ramus suspicious for sarcomatous transformation. He underwent a biopsy of the right pubic bone via Ortho oncologist on 02/19/2025 that showed malignant spindle and epithelioid cell neoplasm consistent with
metastatic sarcomatoid carcinoma. He came to the hospital because of increasing right groin pain with fatigue and reduced oral intake. In the ER he was afebrile with heart rate 104, respiratory rate 18, BP low at 93/55 and saturating 96% on room
air. Labs pertinent for leukocytosis to 23.5, anemia to 11.1, sodium 126, creatinine 2.1, calcium 14.8, intact PTH <3.4, and urinalysis with no signs of UTI. Urine and blood cultures collected. CXR shows an enlarged left hilar shadow concerning
for adenopathy versus a central mass, with increased reticulonodular markings throughout the left lung concerning for lymphangitic spread of carcinoma and a left-sided pleural effusion. He was given 2 L NS 0.9% in the ER and admitted to the floor,
and empirically started on antibiotics, with nephrology and hematology consulted. Patient had a repeat CXR on 02/24 showing airspace opacity throughout the left lower lobe and the lingula concerning for pneumonia. Pulmonary service now consulted
for additional management/recommendations.
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
Paget's disease
#1. Left infrahilar mass encasing proximal LLL pulmonary artery with left lower lobe post-obstructive pneumonia
- MRSA screen negative, discontinued IV vancomycin
- Continue IV Unasyn
- Follow-up on sputum cultures
- Lymphangitic spread of malignancy also in differential diagnosis
#2. Extensive mediastinal/hilar and supraclavicular lymphadenopathy with lung mass and pleural effusion
- High pretest probability of underlying malignancy, ?primary lung cancer versus metastasis
- Pleural effusion concerning for malignancy. IR guided thoracentesis 02/26, 1150 mL of fluid removed, exudate by both protein and LDH criteria. Fluid LDH 337. Pleural fluid cultures and cytology pending. If patient turns out to have malignant
pleural effusion and develops rapid reaccumulation, will consider indwelling pleural draining catheter.
- S/p IR guided supraclavicular lymph node biopsy (02/26) for tissue diagnosis. If nondiagnostic, can pursue bronchoscopy and EBUS-TBNA for tissue sampling
#3. Paraseptal emphysema
- Patient reports smoking from age 19 up until 66, about 1 pack/day, close to [id number] smoking history
- No wheezing on exam, does not report using any inhalers at baseline
- Patient needs outpatient pulmonary function testing for further evaluation
#4. Recent diagnosis of Metastatic sarcomatoid carcinoma via right pubic bone biopsy on 02/19/2025 showing malignant spindle and epithelioid cell neoplasm
- Evidence of metastatic bone lesions with right lateral 6th rib destruction on CXR (02/24/2025)
- Await supraclavicular lymph node biopsy results, oncology consult
DVT ppx: LMWH
Prognosis is poor
Total time spent on this consultation/encounter _38___ minutes which includes review of history, physical exam, medications, laboratory data, personal review of imaging, extensive review of outpatient records, discussion with care team and
respiratory therapy.
Data:
CXR 02/24/2025:
1. Large amount of left lower lobe opacity which is most likely SEVERE LEFT LOWER LOBE PNEUMONIA (probably postobstructive pneumonia secondary to left lower lobe bronchial occlusion).
2. 4.8 cm irregular shaped density in the left hilum most consistent with LEFT HILAR MALIGNANCY (either primary lung cancer or metastatic disease).
3. Large 7.4 cm DESTRUCTIVE OSSEOUS METASTASIS in the right lateral 6th rib.
4. Mild cardiomegaly.
5. Previous CABG surgery.
CT Chest with IV contrast 02/25/2025:
1. LARGE 6.3 cm MALIGNANT MASS in the superior segment of the LEFT LOWER LOBE extending into the left hilum and encasing the left lower lobe pulmonary artery and bronchus.
2. Extensive metastatic mediastinal, bilateral hilar, and bilateral supraclavicular lymphadenopathy.
3. Peribronchovascular spread of malignancy into the left upper lobe.
4. MULTIFOCAL OSSEOUS METASTATIC DISEASE including a large destructive metastasis in the left T5 vertebra and a large lytic metastasis in the right lateral 6th rib.
5. Large bilateral adrenal metastases.
6. Large metastatic lymph nodes in the right upper quadrant.
7. Large peritoneal metastases in the left upper quadrant.
8. SEVERE LEFT LOWER LOBE PNEUMONIA.
9. Moderate-sized left pleural effusion.
10. Small right pleural effusion.
11. Previous CABG surgery.
Subjective Data
-
Date of Service:
Date of Service: February 28, 2025
Chief Complaint: Pulmonary Follow Up
Subjective:
Patient lying in bed in no acute distress, saturating well on room air
Review of Systems
Genitourinary: Other (All 14 systems reviewed and negative except as stated above in the history of present illness.)
Objective Data
Data Reviewed
Vital Signs / I&O / Oxygen:
Vital Signs
Temp Pulse Resp BP Pulse Ox
98.7 F 119 19 117/72 92
02/28/25 11:44 02/28/25 11:44 02/28/25 11:44 02/28/25 11:44 02/28/25 11:44
Intake and Output
02/27/25 02/28/25 03/01/25
06:59 06:59 06:59
Intake Total 680 / 680 480 / 480 1180 / 1180
Output Total 375 / 375 300 / 300
Balance 305 / 305 480 / 480 880 / 880
SaO2 92
Nasal Cannula flow liters per 2
minute
Physical Exam
General: Respiratory Distress (negative) and Comfortable
HEENT: Normocephalic and Anicteric
Cardiovascular: S1-S2 and Peripheral Edema (trace)
Respiratory: Crackles (negative), Rhonchi (left base, improved) and Non-Labored Respirations
GI: Soft, Non Distended, Non Tender and Normal Bowel Sounds
Neurology: Awake and Alert
Skin: Warm and Dry
Labs/Micro/Reports
Lab Data
02/28/25 07:00
02/28/25 07:00
Microbiology
02/23/25 11:11 Blood/Venous Blood Culture - Final
No Growth - Final Report
02/26/25 13:51 Pleural Fluid Body Fluid Culture - Preliminary
No Growth After 48 Hours
02/26/25 13:51 Pleural Fluid Gram Stain - Preliminary
02/23/25 11:51 Blood/Venous Blood Culture - Preliminary
No Growth in 4 days- Final report to follow
02/24/25 13:40 Nose MRSA Screen - Final
No Methicillin Resistant Staphylococcus aureus isolated.
02/25/25 02:44 Urine Legionella Urinary Antigen - Final
Negative for Legionella pneumophila Serogroup 1 antigen.
A negative result does not rule out the possiblity of
Legionella infection due to other serogroups or species of
Legionella. Clinical correlation is recommended.
02/25/25 02:44 Urine Streptococcus pneumoniae Antigen (M - Final
Negative for Streptococcus pneumoniae antigen.
A negative result does not exclude infection with
Streptococcus pneumoniae. Clinical correlation is
recommended.
--- NOTE | 2025-02-28 13:03 | CM ---
CM reviewed chart, patient seen bedside with sister, discussed PT recommendation for rehab. Patient would like to stay close to home so can visit ([facility]) will provide list of SNFS in area. Awaiting outcome from [facility]. Patient will require
auth for SNF once facility found. CM will continue to follow for all discharge planning needs.
Plan; await outcome from [facility], SNF, will need auth
[2025-02-28 13:48] LABS: PTH Related Peptide LC-MS/MS 16.7 pmol/L (0.0-2.3)
[2025-02-28] MEDS: LOVENOX 40 MG SC (16:38)
[2025-02-28] MEDS: ULTRAM 50 MG PO (21:03)
--- NOTE | 2025-02-28 23:30 | PTCARENOTE ---
Addendum entered by Constantin Hernandez RN 03/01/25 03:25:
0240 Ashok Morton ordered 40mg IV Lasix NOW. Administered per order. No further orders.
Addendum entered by Constantin Hernandez RN 03/01/25 03:21:
0020, pt noted to have increased work of breathing, audible rhochi/ wheezes- change from initial assessment. ENVIRONMENTAL HEALTH SAFETY ENGINEER made aware. Ashok Morton at bedside. Duoneb, 0.5mg IV morphine, portable chest xray ordered. No further orders.
Original Note:
Pt went for MRI brain. Rosita Gutierrez made aware of results. NIH stroke scale and neuro checks ordered, neurology consulted. No further orders.
Upon returning from MRI, pt noted to be WAGONER returning to bed with SP02 88-90%. Pt placed on 3L NC, 96%.
[2025-03-01] VITALS (7 sets, daily range): BP systolic 102–137; BP diastolic 49–79; BMI 24.0
[2025-03-01] MEDS: DUONEB 3 ML INH (01:38)
[2025-03-01] MEDS: MORPHINE SULFATE 0.5 MG IV (01:39)
--- NOTE | 2025-03-01 01:47 | W.PN.UPDATE ---
Update Note
Progress Note Update
RN reports patient in need of oxygen via NC, with audible crackles. Patient seen and evaluated. Oriented, reports he does notice some change in work of breathing but not consistent. Lungs audible crackles upper chest, diminished at bases with
rhonchi, increase in work of breathing, using accessory muscles, 98.1 122/67 HR 119 30 96% 3l. Denies chest pain.
Morphine 0.5mg IV x 1 Duoneb x1, Chest Xray stat.
Lasix 40mg IVx1
[2025-03-01] MEDS: LASIX 40 MG IV (02:59)
[2025-03-01] MEDS: UNASYN IV ×4 (03:01→22:59)
--- NOTE | 2025-03-01 07:17 | CON.NEURO ---
Consultation
Order
Date of Consultation: 03/01/25
Requesting Provider: Rosita Sandhu CRNP
Reason for Consult: Positive MRI
Neurology Consultation Note.
HPI: This is a 74-year-old right-handed man who presented to [facility] on 02/22/2025 with encephalopathy, fever and reduced p.o. intake. Neurology consultation was requested for evaluation and management of abnormal changes on brain
MRI.
Mr. Pantoja endorses lower back pain. He states that he has had dysarthria since initial presentation. Reports of headaches, change in strength.
ER VS: 114/68, T�38.2 (02/23/2025)
EKG: A-fib(02/26/2025)
PDMP:Acetaminophen-Cod #3 Tablet 28 tablets filled in on 01/29/2025, 01/16/2025
Labs on admission: WBCs�23.5, sodium�126, creatinine�2.1, glucose�115, calcium�14.8, normal albumin,Vitamin D�less than 12.8,
Brain MRI with and without gadolinium (02/28/2025)�several tiny nonhemorrhagic acute/subacute infarcts scattered throughout the left frontoparietal and right posterior parieto-occipital lobes. 7 mm enhancing metastasis in the left frontal lobe.
MAR: Tramadol 50 mg given on 03/01/25 at 07:44, ASA 81
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
PSH:thoracentesis, MVR, CABG,
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
All:NKDA
ROS: Positive for encephalopathy, dysarthria, back pain, dyspnea
General: Well developed. In no acute distress.
Cardio: Regular rate and rhythm without murmur. Extremities are without cyanosis or edema.
Neuro:
Mental Status: Alert, oriented to person, place, and date. Fluctuating mood, impaired attention. Follows simple requests. Nonfluent. No hemineglect.
Cranial Nerves: Pupils are equally round and reactive to light. EOMs full. Visual galvan full to confrontation. No ptosis. No nystagmus. V1-V3 intact to light touch and pinprick bilaterally, symmetric. Face symmetric. Normal hearing AU. The
palate elevated well. SCMs and traps 5/5. Tongue midline. Mild to moderate dysarthria.
Motor: Normal bulk and tone. No pronator or arm drift. Strength 5/5 throughout. Except for hip flexors 3+ out of 5, knee extensors 4 out of 5, full dorsiflexion (pain med exam)
Reflexes: 1+ throughout the upper extremities and 0 knees. 0/2 in AJs. Plantar responses flexor bilaterally.
Sensory: Preserved vibration at the toes
Coordination: No dysmetria or tremor.
Gait: deferred
Assessment and Plan:
I. Cardioembolic acute/subacute stroke. Rule out IE, marantic endocarditis
II. CYLINDER DYER metastatic disease
III. PA AFib
IV. Encephalopathy (metabolic, vascular, hypoxic, neoplastic)
V. metastatic sarcomatoid carcinoma
-Continue Telemetry monitoring
-Continue aspirin 81 mg once a day for stroke prophylaxis.
-Start ASA 81 mg QD
-TTE
-LS-spine MRI with and without yolanda
-DVT prophylaxis.
-Case was discussed with patient's .
I personally reviewed all radiology and labs along with past medical records pertinent to current medical problems. Total time spent in patient care is 60 minutes.
Thank you for allowing us to participate in the care of this patient. We will continue to follow. Please do not hesitate to contact us with any questions or concerns.
Subjective/Objective
Subjective Data
Date of Service: March 01, 2025
Objective Data
Vital Signs
Temp Pulse Resp BP Pulse Ox
36.5 C 119 20 125/68 96
03/01/25 03:08 03/01/25 03:08 03/01/25 03:08 03/01/25 03:08 03/01/25 03:08
Sodium 137 mmol/L (135-145) 02/28/25 07:00
Potassium 3.5 mmol/L (3.5-5.1) 02/28/25 07:00
BUN 21 mg/dl (9-20) H 02/28/25 07:00
Glucose 97 mg/dl (70-99) 02/28/25 07:00
Calcium 8.9 mg/dl (8.4-10.2) 02/28/25 07:00
Phosphorus 3.8 mg/dl (2.5-4.5) 02/22/25 15:04
Vitamin B12 975 pg/ml (239-931) H 02/23/25 08:38
Patient Allergies
seasonal Allergy (Uncoded 02/22/25 11:04)
sneezing
Medications
-
Active Medications
Generic Name Dose Route Start Last Admin
Trade Name Freq PRN Reason Stop Dose Admin
Acetaminophen 650 mg 02/22/25 14:46 02/28/25 11:45
Acetaminophen 325 Mg Tablet PO 03/22/25 14:45 650 mg
Q4HPRN PRN Administration
PAIN
Aspirin 81 mg 02/23/25 08:00 02/28/25 07:46
Aspirin 81 Mg Chewable Tablet PO 03/23/25 07:59 81 mg
DAILY GRISELDA Administration
Atorvastatin Calcium 40 mg 02/23/25 08:00 02/28/25 07:46
Atorvastatin (Lipitor) 40 Mg Tablet PO 03/23/25 07:59 40 mg
DAILY GRISELDA Administration
Ezetimibe 10 mg 02/23/25 08:00 02/28/25 07:46
Ezetimibe (Zetia) 10 Mg Tablet PO 03/23/25 07:59 10 mg
DAILY GRISELDA Administration
Enoxaparin Sodium 40 mg 02/25/25 18:00 02/28/25 16:38
Enoxaparin Sodium 40 Mg/0.4 Ml Syringe SC 03/25/25 17:59 40 mg
QPM GRISELDA Administration
Ergocalciferol 50,000 units 02/23/25 10:00 02/23/25 10:52
Ergocalciferol (Vitamin D-2) 29380 Units Capsule PO 03/23/25 09:59 Not Given
Q7D GRISELDA
Ampicillin Sodium/Sulbactam 120 mls @ 240 mls/hr 02/26/25 10:00 03/01/25 03:01
Sodium 3 gm/ Sodium Chloride IV 120 mls
Q6H GRISELDA Administration
Metoprolol Succinate 25 mg 02/26/25 17:47 02/28/25 07:46
Metoprolol 25 Mg Extended Release Tablet PO 03/25/25 07:59 25 mg
DAILY GRISELDA Administration
Metoprolol Tartrate 5 mg 02/26/25 17:46 02/26/25 21:33
Metoprolol 5 Mg/5 Ml Vial IV 03/26/25 17:45 5 mg
Q6HPRN PRN Administration
HR >140
Sodium Chloride 0 flush 02/22/25 15:00 02/26/25 16:12
Sodium Chloride 0.9% (Flush) Syringe IV 03/22/25 14:59 1 flush
PER PROTOCOL GRISELDA Administration
Sterile Water 10 ml 02/23/25 12:00 02/28/25 10:01
Sterile Water For Injection 10 Ml Vial IV 03/23/25 11:59 Not Given
Q24H GRISELDA
Tramadol HCl 50 mg 02/28/25 16:19 02/28/25 21:03
Tramadol Hcl 50 Mg Tablet PO 03/27/25 11:59 50 mg
BID GRISELDA Administration
Home Medications
�Medication �Instructions �Recorded
atorvastatin 40 mg tablet 40 mg PO DAILY High cholesterol 08/09/19
lisinopril 20 mg tablet 20 mg PO DAILY Blood pressure 10/06/21
acetaminophen 650 mg 650 mg PO Q4HPRN PRN PAIN 02/22/25
tablet,extended release
aspirin 81 mg tablet 81 mg PO DAILY 02/22/25
ezetimibe 10 mg tablet 10 mg PO DAILY 02/22/25
meloxicam 15 mg tablet 15 mg PO DAILY 02/22/25
metoprolol succinate 25 mg 25 mg PO DAILY 02/22/25
tablet,extended release 24 hr
Vital Signs and Labs
-
Vital Signs and Labs:
Vital Signs
Temp Pulse Resp BP Pulse Ox
36.5 C 119 20 102/49 96
03/01/25 03:08 03/01/25 03:08 03/01/25 03:08 03/01/25 07:43 03/01/25 03:08
Sodium 137 mmol/L (135-145) 02/28/25 07:00
Potassium 3.5 mmol/L (3.5-5.1) 02/28/25 07:00
BUN 21 mg/dl (9-20) H 02/28/25 07:00
Glucose 97 mg/dl (70-99) 02/28/25 07:00
Calcium 8.9 mg/dl (8.4-10.2) 02/28/25 07:00
Phosphorus 3.8 mg/dl (2.5-4.5) 02/22/25 15:04
Vitamin B12 975 pg/ml (239-931) H 02/23/25 08:38
Medications
-
Medications:
Generic Name Dose Route Start Last Admin
Trade Name Freq PRN Reason Stop Dose Admin
Acetaminophen 650 mg 02/22/25 14:46 02/28/25 11:45
Acetaminophen 325 Mg Tablet PO 03/22/25 14:45 650 mg
Q4HPRN PRN Administration
PAIN
Aspirin 81 mg 02/23/25 08:00 03/01/25 07:43
Aspirin 81 Mg Chewable Tablet PO 03/23/25 07:59 81 mg
DAILY GRISELDA Administration
Atorvastatin Calcium 40 mg 02/23/25 08:00 03/01/25 07:43
Atorvastatin (Lipitor) 40 Mg Tablet PO 03/23/25 07:59 40 mg
DAILY GRISELDA Administration
Ezetimibe 10 mg 02/23/25 08:00 03/01/25 07:43
Ezetimibe (Zetia) 10 Mg Tablet PO 03/23/25 07:59 10 mg
DAILY GRISELDA Administration
Enoxaparin Sodium 40 mg 02/25/25 18:00 02/28/25 16:38
Enoxaparin Sodium 40 Mg/0.4 Ml Syringe SC 03/25/25 17:59 40 mg
QPM GRISELDA Administration
Ergocalciferol 50,000 units 02/23/25 10:00 02/23/25 10:52
Ergocalciferol (Vitamin D-2) 12022 Units Capsule PO 03/23/25 09:59 Not Given
Q7D GRISELDA
Ampicillin Sodium/Sulbactam 120 mls @ 240 mls/hr 02/26/25 10:00 03/01/25 03:01
Sodium 3 gm/ Sodium Chloride IV 120 mls
Q6H GRISELDA Administration
Metoprolol Succinate 25 mg 02/26/25 17:47 03/01/25 07:43
Metoprolol 25 Mg Extended Release Tablet PO 03/25/25 07:59 Not Given
DAILY GRISELDA
Metoprolol Tartrate 5 mg 02/26/25 17:46 02/26/25 21:33
Metoprolol 5 Mg/5 Ml Vial IV 03/26/25 17:45 5 mg
Q6HPRN PRN Administration
HR >140
Sodium Chloride 0 flush 02/22/25 15:00 02/26/25 16:12
Sodium Chloride 0.9% (Flush) Syringe IV 03/22/25 14:59 1 flush
PER PROTOCOL GRISELDA Administration
Sterile Water 10 ml 02/23/25 12:00 02/28/25 10:01
Sterile Water For Injection 10 Ml Vial IV 03/23/25 11:59 Not Given
Q24H GRISELDA
Tramadol HCl 50 mg 02/28/25 16:19 03/01/25 07:44
Tramadol Hcl 50 Mg Tablet PO 03/27/25 11:59 50 mg
BID GRISELDA Administration
Home Medications
-
Home Medications
atorvastatin 40 mg tablet 40 mg PO DAILY High cholesterol 08/09/19
lisinopril 20 mg tablet 20 mg PO DAILY Blood pressure 10/06/21
acetaminophen 650 mg tablet,extended release 650 mg PO Q4HPRN PRN PAIN 02/22/25
aspirin 81 mg tablet 81 mg PO DAILY 02/22/25
ezetimibe 10 mg tablet 10 mg PO DAILY 02/22/25
meloxicam 15 mg tablet 15 mg PO DAILY 02/22/25
metoprolol succinate 25 mg tablet,extended release 24 hr 25 mg PO DAILY 02/22/25
[2025-03-01] MEDS: LOW STRENGTH ASPIRIN 81 MG PO (07:43)
[2025-03-01] MEDS: ZETIA 10 MG PO (07:43)
[2025-03-01] MEDS: TOPROL XL PO (07:43)
[2025-03-01] MEDS: LIPITOR 40 MG PO (07:43)
[2025-03-01] MEDS: ULTRAM 50 MG PO ×2 (07:44→20:39)
--- NOTE | 2025-03-01 07:48 | W.PN.HOSP.TC ---
Today's Communication/Plan
-
IV antibiotics. Repeat left thoracentesis. Neurology eval
Assessment / Plan
Assessment / Plan
Physical exam:
General: Acute on chronically ill
HEENT: Normocephalic, Atraumatic and Moist Mucous Membranes
Respiratory: Decreased breath sounds bilateral more pronounced on the left; Negative Wheezes, Rales. Left base rhonchi
Cardiac: Regular Rhythm and S1/S2
GI: Soft, Nontender and Nondistended
Musculoskeletal: Hip/pelvic discomfort. No Clubbing, No Cyanosis and No Edema
Neuro: Awake, Alert and Oriented, no neurological deficits but generalized weakness and mild encephalopathy.
Psych: Anxious
A/P:
Worsening shortness of breath and hypoxia:
Likely related to worsening left pleural effusion, likely malignant
Seen in follow-up chest x-ray and significantly increased opacity in the left lung
Discussed with pulmonary today
Plan for repeat left thoracentesis and ASEPT placement if recurrent
Discussed with at bedside today
Reached out to sister today but unable to talk to her
Stroke and metastatic brain disease:
Seen MRI of the brain
Started on aspirin and statin
Plan for echocardiogram and lumbar spine MRI
Neurology consult appreciated
Left lower lobe postobstructive pneumonia (?lymphangitic spread malignancy) and left lung mass (likely malignant):
Continue IV Unasyn
On IDDSI level 4 diet
?need bronchoscopy if diagnostic tests non revealing but await current work up
Updated sister over the phone prior, Newton-she stated she is the person to be in contact given her medical background and also understands that as well. She also wants oncology to reach out to her.
Extensive mediastinal, hilar, and supraclavicular adenopathy:
Status post lymph node biopsy on 02/26
Pleural effusion and lung mass:
Status post thoracentesis on 02/26 with exudate results pending cytology
Severe hypercalcemia of malignancy:
Resolved
Status post pamidronate and calcitonin and IV fluid
Metastatic sarcomatoid carcinoma :
Malignant spindle and epithelioid cell neoplasm per biopsy on 02/19 from expansile lseion right pelvis
Follows up with Dr. Dozier orthopedic oncology at [place]
Our oncology discussed with Dr. Dozier as per notes--> plan to be treated as metastatic sarcomatoid carcinoma versus primary lung malignancy with metastatic disease.
Pain control on tramadol
Chronic HFpEF:
Monitor volume status closely
History of severe mitral regurgitation:
Status post mitral valve repair in the past
Hypertension:
Usual meds
Hyperlipidemia:
Statin
CAD:
Status post CABG in the past
Continue aspirin, beta-blockers, and statins.
NOMI:
Resolved
Multifactorial etiology NSAIDs use, dehydration, postobstructive, hypercalcemia, other
Urinary retention:
Status post Walker
Acute metabolic encephalopathy:
Improving but not back to baseline after NOMI electrolytes improvement so MRI revealed stroke and metastatic ROPE RIDER as above
Has received antipsychotics during this hospital stay
Hyponatremia:
Improving
Anemia:
Monitor hemoglobin closely
Stage II sacral pressure injury, POA
DVT prophylaxis:
Lovenox SQ
CODE STATUS:
DNR
Prognosis guarded (patient and family still prefer restorative treatment)
Total time spent on today's encounter was 57 minutes which included time spent in counseling the patient/family regarding diagnosis and treatment plan as listed above, goals of care, and symptom management. Case was discussed with nursing staff,
specialists, and care coordinators/case management. All labs and imaging personally reviewed by me. Remainder the time spent in detailed review of previous records, lab data, imaging, and other medical provider documentation.
Anticipated Discharge: > 48 hours
Subjective/Interval History
-
Date of Service: March 01, 2025
Patient more short of breath overnight. Looks frail overall. Afebrile
Objective Data
-
Labs:
Laboratory Results
03/01/25
07:08
WBC Pending
Hgb Pending
Hct Pending
Plt Count Pending
Sodium Pending
Potassium Pending
Chloride Pending
Carbon Dioxide Pending
BUN Pending
Creatinine Pending
Glucose Pending
Calcium Pending
Vital Signs:
Vital Signs
Temp Pulse Resp BP Pulse Ox
97.7 F 119 20 102/49 96
03/01/25 03:08 03/01/25 03:08 03/01/25 03:08 03/01/25 07:43 03/01/25 03:08
I&O
02/28/25 03/01/25 03/02/25
06:59 06:59 06:59
Intake Total 480 / 480 1900 / 1900
Output Total 800 / 800
Balance 480 / 480 1100 / 1100
[2025-03-01 08:10] LABS: Hematocrit 28.3 % (39.0-52.0); Hemoglobin 9.7 g/dL (13.0-18.0); Mean Corp Hgb Conc. 34.3 g/dL (33.0-37.0); Mean Corpuscular Hgb 31.3 pg (27.0-31.0); Mean Corpuscular Volume 91.3 fL (80.0-94.0); Mean Platelet Volume 9.1 fL (7.4-10.4); Platelet Count 328 10^3/uL (130-400); Red Cell Dist. Width 16.5 % (11.5-14.5); White Blood Cell Count 26.4 10^3/uL (4.8-10.8)
[2025-03-01 08:11] LABS: Blood Urea Nitrogen 27 mg/dl (9-20); Calcium 8.7 mg/dl (8.4-10.2); Carbon Dioxide 22 mmol/L (22-30); Chloride 104 mmol/L (98-107); Estimated Creatinine Clearance 88 ml/min; Glucose 84 mg/dl (70-99); Potassium 3.6 mmol/L (3.5-5.1); Sodium 135 mmol/L (135-145); eGFR > 60.00
[2025-03-01 08:57] LABS: % Basophils 0.2 % (0-2); % Eosinophils 0.2 % (0-6); % Immature Granulocytes 0.9 % (0-0.5); % Lymphocytes 4.8 % (20.5-51.1); % Monocytes 7.2 % (1.7-9.3); % Neutrophils 86.7 % (42.2-75.2); Absolute Basophils 0.1 10^3/uL (0-0.2); Absolute Eosinophils 0.1 10^3/uL (0-0.7); Absolute Immature Granulocytes 0.2 10^3/uL (0-0.05); Absolute Lymphocytes 1.3 10^3/uL (1.2-3.4); Absolute Monocytes 1.9 10^3/uL (0.1-0.6); Absolute Neutrophils 22.9 10^3/uL (1.4-6.5); Nucleated Red Blood Cells % 0.1 % (-)
[2025-03-01 09:11] LABS: Albumin 2.64 g/dL (3.75-5.01); Alpha 1 Globulin 0.52 g/dL (0.19-0.46); Alpha 2 Globulin 0.81 g/dL (0.48-1.05); SPEP IFE Reflex IFE Done; Total Protein-Electrophoresis 5.3 g/dL (6.3-8.2)
[2025-03-01] MEDS: STERILE WATER FOR INJECTION IV (10:48)
--- NOTE | 2025-03-01 11:25 | PTOTSP ---
Dysphagia Therapy
Downgrade solids due to prolonged mastication and patient reports of difficulty swallowing. See patient care note for details.
Recommend:
1. IDDSI Level 5 Minced/Moist, Thin Liquids
2. Medications as best tolerated
3. Full supervision, assist as needed
4. Strategies: upright to 90 degrees, PO only when awake/alert, small single sips/bites, slow rate with breaks for breathing
5. Oral care 3x daily
6. Dysphagia f/u to determine if/when solid diet advancement appropriate, instruct in compensations
7. Consider video swallow study to r/o aspiration component given brain mets, new strokes, pulmonary changes
8. Cognitive linguistic evaluation if/when appropriate
--- NOTE | 2025-03-01 13:11 | W.PN.ONC2 ---
Today's Communication / Plan
-
discharge planning
Impression
Impression
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
right lateral 6th rib
Left infrahilar mass encasing proximal LLL pulmonary artery and Peribronchovascular spread of malignancy into the left upper lobe
Extensive mediastinal/hilar and supraclavicular lymphadenopathy with lung mass and pleural effusion
Large bilateral adrenal metastases
Large metastatic lymph nodes in the right upper quadrant
Large peritoneal metastases in the left upper quadrant
7 mm enhancing metastasis in the left frontal lobe
Several tiny nonhemorrhagic acute/subacute infarcts scattered throughout the left frontoparietal and right posterior parieto-occipital lobes
Hypercalcemia of malignancy s/p pamidronate, calcitonin, NS IVF -resolved
Leukocytosis
hyponatremia -improved
NOMI -resolved
Anemia
CAD/CABG
NSAID usage
Plan
Plan
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
Goals remain restorative
Dr. Dozier, orthopedic oncology at [facility] has provided patient information to the search manager for close follow up.
Dr. Anna spoke with , Venu and I spoke with sister, Newton to provide updates and answer questions. I also called Felda navigator to provide updates.
Subjective/Objective
Subjective
pain controlled with tramadol BID
Vital Signs:
Vital Signs
Temp Pulse Resp BP Pulse Ox
97.8 F 123 20 117/74 96
03/01/25 11:39 03/01/25 11:39 03/01/25 11:39 03/01/25 11:39 03/01/25 12:49
Lab Results:
Laboratory Data
WBC 26.4 10^3/uL (4.8-10.8) H 03/01/25 07:08
Hgb 9.7 g/dL (13.0-18.0) L 03/01/25 07:08
Plt Count 328 10^3/uL (130-400) 03/01/25 07:08
eGFR > 60.00 03/01/25 07:08
Physical Exam
HEENT: Moist Mucous Membranes; No Jaundice
Cardiology: Other (irreg, irreg)
Pulmonary: Clear
GI: Soft
Extremities: Pulses Present; No Edema
Neuro: Non Focal
Orders
Orders
Orders From Last 24 Hours
02/28/25 16:19
Tramadol HCl [Ultram] 50 mg PO BID
02/28/25 16:22
MR Brain W/o & With Contrast Routine
--- NOTE | 2025-03-01 13:11 | W.PN.PUL3 ---
Today's Communication / Plan
-
- IR consult for left-sided thoracentesis
- Titrate supplemental oxygen as needed
- Await pleural fluid cytology and cultures
Assessment
-
Assessment: 74-year-old male former tobacco smoker with a past medical history of ICM with recovered EF, stage II diastolic dysfunction, CAD s/p CABG x 5, hypertension, hypercholesterolemia, periodontal disease and history of severe mitral
regurgitation s/p mitral valve repair who presents with fatigue, reduced oral intake, nausea and right-sided groin pain. Previously found to have right hip pain since November 2024. In December he underwent MRI showing a large expansile osseous lesion
in the right pubic bone and superior pubic ramus suspicious for sarcomatous transformation. He underwent a biopsy of the right pubic bone via Ortho oncologist on 02/19/2025 that showed malignant spindle and epithelioid cell neoplasm consistent with
metastatic sarcomatoid carcinoma. He came to the hospital because of increasing right groin pain with fatigue and reduced oral intake. In the ER he was afebrile with heart rate 104, respiratory rate 18, BP low at 93/55 and saturating 96% on room
air. Labs pertinent for leukocytosis to 23.5, anemia to 11.1, sodium 126, creatinine 2.1, calcium 14.8, intact PTH <3.4, and urinalysis with no signs of UTI. Urine and blood cultures collected. CXR shows an enlarged left hilar shadow concerning
for adenopathy versus a central mass, with increased reticulonodular markings throughout the left lung concerning for lymphangitic spread of carcinoma and a left-sided pleural effusion. He was given 2 L NS 0.9% in the ER and admitted to the floor,
and empirically started on antibiotics, with nephrology and hematology consulted. Patient had a repeat CXR on 02/24 showing airspace opacity throughout the left lower lobe and the lingula concerning for pneumonia. Pulmonary service now consulted
for additional management/recommendations.
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
Paget's disease
#1. Left infrahilar mass encasing proximal LLL pulmonary artery with left lower lobe post-obstructive pneumonia
- MRSA screen negative, discontinued IV vancomycin
- Continue IV Unasyn
- Follow-up on sputum cultures
- Lymphangitic spread of malignancy also in differential diagnosis
#1a. Acute hypoxic respiratory failure, 03/02
- Patient now requiring supplemental oxygen
- Stat chest x-ray showed worsening left-sided opacity concerning for re, elation of pleural effusion
- IR service contacted, plan for left-sided thoracentesis and will send fluid for further analysis. Discussed with patient and spouse at bedside.
- Continue IV antibiotics, supplemental oxygen
- Await pleural fluid cytology, if turns out to be malignant, will consider ASEPT placement ,anticipate early next week
#2. Extensive mediastinal/hilar and supraclavicular lymphadenopathy with lung mass and pleural effusion
- High pretest probability of underlying malignancy, ?primary lung cancer versus metastasis
- Pleural effusion concerning for malignancy. IR guided thoracentesis 02/26, 1150 mL of fluid removed, exudate by both protein and LDH criteria. Fluid LDH 337. Pleural fluid cultures and cytology pending.
- S/p IR guided supraclavicular lymph node biopsy (02/26) for tissue diagnosis. If nondiagnostic, can pursue bronchoscopy and EBUS-TBNA for tissue sampling
#3. Paraseptal emphysema
- Patient reports smoking from age 19 up until 66, about 1 pack/day, close to 59-[id number]-mgwm smoking history
- No wheezing on exam, does not report using any inhalers at baseline
- Patient needs outpatient pulmonary function testing for further evaluation
#4. Recent diagnosis of Metastatic sarcomatoid carcinoma via right pubic bone biopsy on 02/19/2025 showing malignant spindle and epithelioid cell neoplasm
- Evidence of metastatic bone lesions with right lateral 6th rib destruction on CXR (02/24/2025)
- Await supraclavicular lymph node biopsy results, oncology consult
DVT ppx: LMWH
Prognosis is poor
Total time spent on this consultation/encounter _52___ minutes which includes review of history, physical exam, medications, laboratory data, personal review of imaging, extensive review of outpatient records, discussion with care team and
respiratory therapy.
Data:
CXR 02/24/2025:
1. Large amount of left lower lobe opacity which is most likely SEVERE LEFT LOWER LOBE PNEUMONIA (probably postobstructive pneumonia secondary to left lower lobe bronchial occlusion).
2. 4.8 cm irregular shaped density in the left hilum most consistent with LEFT HILAR MALIGNANCY (either primary lung cancer or metastatic disease).
3. Large 7.4 cm DESTRUCTIVE OSSEOUS METASTASIS in the right lateral 6th rib.
4. Mild cardiomegaly.
5. Previous CABG surgery.
CT Chest with IV contrast 02/25/2025:
1. LARGE 6.3 cm MALIGNANT MASS in the superior segment of the LEFT LOWER LOBE extending into the left hilum and encasing the left lower lobe pulmonary artery and bronchus.
2. Extensive metastatic mediastinal, bilateral hilar, and bilateral supraclavicular lymphadenopathy.
3. Peribronchovascular spread of malignancy into the left upper lobe.
4. MULTIFOCAL OSSEOUS METASTATIC DISEASE including a large destructive metastasis in the left T5 vertebra and a large lytic metastasis in the right lateral 6th rib.
5. Large bilateral adrenal metastases.
6. Large metastatic lymph nodes in the right upper quadrant.
7. Large peritoneal metastases in the left upper quadrant.
8. SEVERE LEFT LOWER LOBE PNEUMONIA.
9. Moderate-sized left pleural effusion.
10. Small right pleural effusion.
11. Previous CABG surgery.
Subjective Data
-
Date of Service:
Date of Service: March 01, 2025
Chief Complaint: Pulmonary Follow Up
Subjective:
Patient had increased shortness of breath overnight requiring increased supplemental oxygen
Review of Systems
Genitourinary: Other (Other than increased shortness of breath, no other symptoms reported)
Objective Data
Data Reviewed
Vital Signs / I&O / Oxygen:
Vital Signs
Temp Pulse Resp BP Pulse Ox
97.8 F 123 20 117/74 96
03/01/25 11:39 03/01/25 11:39 03/01/25 11:39 03/01/25 11:39 03/01/25 12:49
Intake and Output
02/28/25 03/01/25 03/02/25
06:59 06:59 06:59
Intake Total 480 / 480 1900 / 1900
Output Total 800 / 800
Balance 480 / 480 1100 / 1100
SaO2 96
Nasal Cannula flow liters per 3
minute
Physical Exam
General: Respiratory Distress (negative) and Comfortable
HEENT: Normocephalic and Anicteric
Cardiovascular: S1-S2 and Peripheral Edema (trace)
Respiratory: Crackles (Increased crackles in the left lower lobe), Rhonchi (left base, worse) and Non-Labored Respirations
GI: Soft, Non Distended, Non Tender and Normal Bowel Sounds
Neurology: Awake and Alert
Skin: Warm and Dry
Labs/Micro/Reports
Lab Data
03/01/25 07:08
03/01/25 07:08
Microbiology
02/26/25 13:51 Pleural Fluid Body Fluid Culture - Final
No Growth After 72 Hours
02/26/25 13:51 Pleural Fluid Gram Stain - Final
02/23/25 11:51 Blood/Venous Blood Culture - Final
No Growth - Final Report
02/23/25 11:11 Blood/Venous Blood Culture - Final
No Growth - Final Report
--- NOTE | 2025-03-01 14:32 | CM ---
CM reviewed chart, patient off floor. IR consult for left-sided thoracentesis, await pleural fluid cytology. CM will continue to follow for all discharge planning needs.
Plan; will depend on medical progress, will continue to follow
[2025-03-01 17:42] LABS: Vitamin B12 984 pg/ml (239-931)
[2025-03-01] MEDS: LOVENOX 40 MG SC (17:58)
[2025-03-02] VITALS (25 sets, daily range): BP systolic 72–134; BP diastolic 43–105; BMI 24.2
[2025-03-02] MEDS: LOPRESSOR 5 MG IV (04:24)
--- NOTE | 2025-03-02 04:30 | PTCARENOTE ---
Pt noted sustaining HR 170's Afib. PRN 5mg IV lopressor given. EKG done. ACADEMY DIRECTOR at bedside. Mag, BMP, CBC ordered. HR back into 110's-20s shortly after lopressor. No further orders.
[2025-03-02 04:57] LABS: Hematocrit 30.5 % (39.0-52.0); Hemoglobin 10.5 g/dL (13.0-18.0); Mean Corp Hgb Conc. 34.4 g/dL (33.0-37.0); Mean Corpuscular Hgb 31.3 pg (27.0-31.0); Mean Platelet Volume 9.2 fL (7.4-10.4); Platelet Count 347 10^3/uL (130-400); Red Blood Cell Count 3.35 10^6/uL (4.70-6.10); Red Cell Dist. Width 17.2 % (11.5-14.5); White Blood Cell Count 29.3 10^3/uL (4.8-10.8)
[2025-03-02] MEDS: UNASYN IV ×4 (05:09→22:47)
[2025-03-02 05:16] LABS: Blood Urea Nitrogen 29 mg/dl (9-20); Carbon Dioxide 24 mmol/L (22-30); Chloride 103 mmol/L (98-107); Estimated Creatinine Clearance 101 ml/min; Glucose 103 mg/dl (70-99); Potassium 3.9 mmol/L (3.5-5.1); Sodium 134 mmol/L (135-145); eGFR > 60.00
[2025-03-02 06:49] LABS: IgA 149 mg/dL (68-408); IgG 574 mg/dL (768-1632); IgM 36 mg/dL (35-263)
[2025-03-02 07:35] LABS: % Basophils 0.3 % (0-2); % Eosinophils 0.5 % (0-6); % Immature Granulocytes 1.1 % (0-0.5); % Lymphocytes 6.1 % (20.5-51.1); % Monocytes 6.9 % (1.7-9.3); % Neutrophils 85.1 % (42.2-75.2); Absolute Basophils 0.1 10^3/uL (0-0.2); Absolute Eosinophils 0.2 10^3/uL (0-0.7); Absolute Immature Granulocytes 0.3 10^3/uL (0-0.05); Absolute Lymphocytes 1.8 10^3/uL (1.2-3.4); Absolute Neutrophils 24.9 10^3/uL (1.4-6.5); Nucleated Red Blood Cells % 0.1 % (-)
[2025-03-02] MEDS: LIPITOR 40 MG PO (07:38)
[2025-03-02] MEDS: ULTRAM 50 MG PO ×2 (07:38→19:11)
[2025-03-02] MEDS: TOPROL XL 25 MG PO (07:38)
[2025-03-02] MEDS: LOW STRENGTH ASPIRIN 81 MG PO (07:39)
[2025-03-02] MEDS: ZETIA 10 MG PO (07:39)
--- NOTE | 2025-03-02 09:15 | W.PN.ONC2 ---
Today's Communication / Plan
-
Updates provided to at bedside and dalton navigator who is arranging close follow up for next steps in treatment.
continue tramadol bid for pain control
discharge planning
Impression
Impression
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
right lateral 6th rib
Left infrahilar mass encasing proximal LLL pulmonary artery and Peribronchovascular spread of malignancy into the left upper lobe
Extensive mediastinal/hilar and supraclavicular lymphadenopathy with lung mass and pleural effusion
Large bilateral adrenal metastases
Large metastatic lymph nodes in the right upper quadrant
Large peritoneal metastases in the left upper quadrant
7 mm enhancing metastasis in the left frontal lobe
Several tiny nonhemorrhagic acute/subacute infarcts scattered throughout the left frontoparietal and right posterior parieto-occipital lobes
Hypercalcemia of malignancy s/p pamidronate, calcitonin, NS IVF -resolved
Leukocytosis
hyponatremia -improved
NOMI -resolved
Anemia
CAD/CABG
NSAID usage
Plan
Plan
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
Goals remain restorative
Subjective/Objective
Subjective
off unit, not seen or examined
Vital Signs:
Vital Signs
Temp Pulse Resp BP Pulse Ox
97.3 F 120 22 131/85 95
03/02/25 07:00 03/02/25 07:00 03/02/25 07:00 03/02/25 07:00 03/02/25 07:00
Lab Results:
Laboratory Data
WBC 29.3 10^3/uL (4.8-10.8) H 03/02/25 04:44
Hgb 10.5 g/dL (13.0-18.0) L 03/02/25 04:44
Plt Count 347 10^3/uL (130-400) 03/02/25 04:44
eGFR > 60.00 03/02/25 04:44
--- NOTE | 2025-03-02 10:00 | W.PN.HOSP.TC ---
Today's Communication/Plan
-
IV antibiotics. Left thoracentesis today. Video swallowing study today.
Assessment / Plan
Assessment / Plan
Physical exam:
General: Acute on chronically ill
HEENT: Normocephalic, Atraumatic and Moist Mucous Membranes
Respiratory: Decreased breath sounds bilateral more pronounced on the left; Negative Wheezes, Rales. Left base rhonchi
Cardiac: Regular Rhythm and S1/S2
GI: Soft, Nontender and Nondistended
Musculoskeletal: Hip/pelvic discomfort. No Clubbing, No Cyanosis and No Edema
Neuro: Awake, Alert and Oriented, no neurological deficits but generalized weakness and mild encephalopathy.
Psych: Anxious
A/P:
Worsening shortness of breath and hypoxia:
Likely related to worsening left pleural effusion, likely malignant
Seen in follow-up chest x-ray and significantly increased opacity in the left lung prior
Discussed with pulmonary today
Plan for repeat left thoracentesis today and ASEPT placement if recurrent
Plan to repeat a chest x-ray in 48 hours
Discussed with at bedside today
Reached out to sister today but unable to talk to her
Stroke and metastatic brain disease:
Seen MRI of the brain
Started on aspirin and statin
Plan for echocardiogram and lumbar spine MRI
Neurology consult appreciated
Left lower lobe postobstructive pneumonia (?lymphangitic spread malignancy) and left lung mass (likely malignant):
Continue IV Unasyn
Plan to repeat procalcitonin today and decide if continue or discontinue antibiotic
On IDDSI level 5 diet
Video swallow study today
?need bronchoscopy if diagnostic tests non revealing but await current work up
Updated sister over the phone prior, [place]-she stated she is the person to be in contact given her medical background and also understands that as well. She also wants oncology to reach out to her.
Extensive mediastinal, hilar, and supraclavicular adenopathy:
Status post lymph node biopsy on 02/26
Pleural effusion and lung mass:
Status post left thoracentesis today on 03/02
Status post thoracentesis on 02/26 with exudate results pending cytology
Severe hypercalcemia of malignancy:
Resolved
Status post pamidronate and calcitonin and IV fluid
Metastatic sarcomatoid carcinoma :
Malignant spindle and epithelioid cell neoplasm per biopsy on 02/19 from expansile lseion right pelvis
Follows up with Dr. Dozier orthopedic oncology at [facility]
Our oncology discussed with Dr. Dozier as per notes--> plan to be treated as metastatic sarcomatoid carcinoma versus primary lung malignancy with metastatic disease.
Pain control on tramadol
Chronic HFpEF:
Monitor volume status closely
History of severe mitral regurgitation:
Status post mitral valve repair in the past
Hypertension:
Usual meds
Hyperlipidemia:
Statin
CAD:
Status post CABG in the past
Continue aspirin, beta-blockers, and statins.
NOMI:
Resolved
Multifactorial etiology NSAIDs use, dehydration, postobstructive, hypercalcemia, other
Urinary retention:
Status post Walker
Acute metabolic encephalopathy:
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
Has received antipsychotics during this hospital stay
Hyponatremia:
Improving
Anemia:
Monitor hemoglobin closely
Stage II sacral pressure injury, POA
DVT prophylaxis:
Lovenox SQ
CODE STATUS:
DNR
Prognosis guarded (patient and family still prefer restorative treatment)
Total time spent on today's encounter was 57 minutes which included time spent in counseling the patient/family regarding diagnosis and treatment plan as listed above, goals of care, and symptom management. Case was discussed with nursing staff,
specialists, and care coordinators/case management. All labs and imaging personally reviewed by me. Remainder the time spent in detailed review of previous records, lab data, imaging, and other medical provider documentation.
Anticipated Discharge: > 48 hours
Subjective/Interval History
-
Date of Service: March 02, 2025
Patient looks frail. Still short of breath. Afebrile
Objective Data
-
Labs:
Laboratory Results
03/02/25
04:44
WBC 29.3 H
Hgb 10.5 L
Hct 30.5 L
Plt Count 347
Sodium 134 L
Potassium 3.9
Chloride 103
Carbon Dioxide 24
BUN 29 H
Creatinine 0.6 L
Glucose 103 H
Calcium 9.0
Vital Signs:
Vital Signs
Temp Pulse Resp BP Pulse Ox
97.3 F 120 22 131/85 95
03/02/25 07:00 03/02/25 07:00 03/02/25 07:00 03/02/25 07:00 03/02/25 07:00
I&O
03/01/25 03/02/25 03/03/25
06:59 06:59 06:59
Intake Total 1900 / 1900 240 / 240
Output Total 800 / 800 300 / 300
Balance 1100 / 1100 -60 / -60
[2025-03-02 10:55] LABS: Body Fluid pH 7.31
[2025-03-02 11:10] LABS: Body Fluid Glucose 58 mg/dl; Body Fluid LDH 488 U/L; Body Fluid Protein 2.2 g/dl
[2025-03-02 11:25] LABS: Body Fluid Mononuclear 37.1 %; Body Fluid Polymorphonuclear 62.9 %; Body Fluid WBC 1312 /CUMM
[2025-03-02] MEDS: TYLENOL 650 MG PO ×2 (11:26→18:26)
[2025-03-02] MEDS: DRISDOL (VITAMIN D2) 50000 UNITS PO (11:32)
[2025-03-02 11:35] LABS: Body Fluid Second Tech EM
[2025-03-02] MEDS: STERILE WATER FOR INJECTION IV (12:06)
--- NOTE | 2025-03-02 12:24 | PTOTSP ---
Videofluoroscopic swallow study
Patient presents with signs concerning for mild oral and at least moderate pharyngeal dysphagia. See patient care note for details.
Recommend:
1. IDDSI Level 5 Minced and Moist, IDDSI Level 2 Mildly Thick Liquids
2. Medications: crushed in puree
3. Strategies: full supervision, assist to use strategies, upright to 90 degrees, small single CUP sips, avoid straw, slow rate, multiple swallows with head rotations, intermittent cough/swallow to try and clear airway, remain upright for 30 minutes
after PO
4. Oral care 3x daily to reduce risk for aspiration complications
5. Hold ARHP at present due to AMS and current pulmonary status
6. Dysphagia therapy at the acute care level for education, instruction in compensations, and pharyngeal swallowing exercises.
--- NOTE | 2025-03-02 12:40 | W.PN.PUL3 ---
Today's Communication / Plan
-
- Check procalcitonin, if unremarkable can discontinue antibiotics
- Follow-up on pleural fluid cytology and supraclavicular lymph node biopsy
- If patient turns out to have malignant pleural effusion, will need indwelling pleural drainage catheter, considering rapid recommendation.
- Pulmonary team will see the patient again on Monday 03/05. Please call earlier if needed..
Assessment
-
Assessment: 74-year-old male former tobacco smoker with a past medical history of ICM with recovered EF, stage II diastolic dysfunction, CAD s/p CABG x 5, hypertension, hypercholesterolemia, periodontal disease and history of severe mitral
regurgitation s/p mitral valve repair who presents with fatigue, reduced oral intake, nausea and right-sided groin pain. Previously found to have right hip pain since November 2024. In December he underwent MRI showing a large expansile osseous lesion
in the right pubic bone and superior pubic ramus suspicious for sarcomatous transformation. He underwent a biopsy of the right pubic bone via Ortho oncologist on 02/19/2025 that showed malignant spindle and epithelioid cell neoplasm consistent with
metastatic sarcomatoid carcinoma. He came to the hospital because of increasing right groin pain with fatigue and reduced oral intake. In the ER he was afebrile with heart rate 104, respiratory rate 18, BP low at 93/55 and saturating 96% on room
air. Labs pertinent for leukocytosis to 23.5, anemia to 11.1, sodium 126, creatinine 2.1, calcium 14.8, intact PTH <3.4, and urinalysis with no signs of UTI. Urine and blood cultures collected. CXR shows an enlarged left hilar shadow concerning
for adenopathy versus a central mass, with increased reticulonodular markings throughout the left lung concerning for lymphangitic spread of carcinoma and a left-sided pleural effusion. He was given 2 L NS 0.9% in the ER and admitted to the floor,
and empirically started on antibiotics, with nephrology and hematology consulted. Patient had a repeat CXR on 02/24 showing airspace opacity throughout the left lower lobe and the lingula concerning for pneumonia. Pulmonary service now consulted
for additional management/recommendations.
Chronic conditions BLOCK TRADER: Chronic diastolic heart failure, history of severe mitral regurgitation s/p mitral valve repair, pulmonary hypertension, hypercholesterolemia, hypertension, periodontal disease, CAD s/p CABG x 5, diverticulosis, suspected
Paget's disease
#1. Left infrahilar mass encasing proximal LLL pulmonary artery with left lower lobe post-obstructive pneumonia
- MRSA screen negative, discontinued IV vancomycin
- Continue IV Unasyn
- Cultures have stayed negative, patient has received 8 days of antibiotics total so far. Will check procalcitonin and if negative will discontinue antibiotics.
- Lymphangitic spread of malignancy also in differential diagnosis
#2. Recurrent left-sided pleural effusion
- Pleural effusion concerning for malignancy. IR guided thoracentesis 02/26, 1150 mL of fluid removed, exudate by both protein and LDH criteria. Fluid LDH 337. Pleural fluid cultures and cytology pending. Patient developed respiratory failure on
03/01, follow-up x-ray again showed recommendation, s/p IR guided thoracentesis 03/02, 1.65 L fluid removed, again exudative, cytology pending.
- Await pleural fluid cytology, if turns out to be malignant, will consider ASEPT placement, anticipate early next week
#2. Extensive mediastinal/hilar and supraclavicular lymphadenopathy with lung mass and pleural effusion
- High pretest probability of underlying malignancy, ?primary lung cancer versus metastasis
- S/p IR guided supraclavicular lymph node biopsy as well as pleural fluid cytology, pending
#3. Paraseptal emphysema
- Patient reports smoking from age 19 up until 66, about 1 pack/day, close to [id number] smoking history
- No wheezing on exam, does not report using any inhalers at baseline
- Patient needs outpatient pulmonary function testing for further evaluation
#4. Recent diagnosis of Metastatic sarcomatoid carcinoma via right pubic bone biopsy on 02/19/2025 showing malignant spindle and epithelioid cell neoplasm
- Evidence of metastatic bone lesions with right lateral 6th rib destruction on CXR (02/24/2025)
- Await supraclavicular lymph node biopsy results, oncology consult
DVT ppx: LMWH
Prognosis is poor
Total time spent on this consultation/encounter _42___ minutes which includes review of history, physical exam, medications, laboratory data, personal review of imaging, extensive review of outpatient records, discussion with care team and
respiratory therapy.
Data:
CXR 02/24/2025:
1. Large amount of left lower lobe opacity which is most likely SEVERE LEFT LOWER LOBE PNEUMONIA (probably postobstructive pneumonia secondary to left lower lobe bronchial occlusion).
2. 4.8 cm irregular shaped density in the left hilum most consistent with LEFT HILAR MALIGNANCY (either primary lung cancer or metastatic disease).
3. Large 7.4 cm DESTRUCTIVE OSSEOUS METASTASIS in the right lateral 6th rib.
4. Mild cardiomegaly.
5. Previous CABG surgery.
CT Chest with IV contrast 02/25/2025:
1. LARGE 6.3 cm MALIGNANT MASS in the superior segment of the LEFT LOWER LOBE extending into the left hilum and encasing the left lower lobe pulmonary artery and bronchus.
2. Extensive metastatic mediastinal, bilateral hilar, and bilateral supraclavicular lymphadenopathy.
3. Peribronchovascular spread of malignancy into the left upper lobe.
4. MULTIFOCAL OSSEOUS METASTATIC DISEASE including a large destructive metastasis in the left T5 vertebra and a large lytic metastasis in the right lateral 6th rib.
5. Large bilateral adrenal metastases.
6. Large metastatic lymph nodes in the right upper quadrant.
7. Large peritoneal metastases in the left upper quadrant.
8. SEVERE LEFT LOWER LOBE PNEUMONIA.
9. Moderate-sized left pleural effusion.
10. Small right pleural effusion.
11. Previous CABG surgery.
Subjective Data
-
Date of Service:
Date of Service: March 02, 2025
Chief Complaint: Pulmonary Follow Up
Subjective:
Patient evaluated after thoracentesis, feeling much improved. No respiratory distress on exam.
Review of Systems
Genitourinary: Other (No new pulmonary symptoms reported.)
Objective Data
Data Reviewed
Vital Signs / I&O / Oxygen:
Vital Signs
Temp Pulse Resp BP Pulse Ox
97.7 F 113 22 99/65 93
03/02/25 11:45 03/02/25 11:45 03/02/25 11:45 03/02/25 11:45 03/02/25 11:45
Intake and Output
03/01/25 03/02/25 03/03/25
06:59 06:59 06:59
Intake Total 1900 / 1900 240 / 240
Output Total 800 / 800 300 / 300
Balance 1100 / 1100 -60 / -60
SaO2 93
Nasal Cannula flow liters per 3
minute
Physical Exam
General: Respiratory Distress (negative) and Comfortable
HEENT: Normocephalic and Anicteric
Cardiovascular: S1-S2 and Peripheral Edema (trace)
Respiratory: Non-Labored Respirations and Egophony (Few inspiratory crackles in the left lower lobe zone)
GI: Soft, Non Distended, Non Tender and Normal Bowel Sounds
Neurology: Awake and Alert
Skin: Warm and Dry
Labs/Micro/Reports
Lab Data
03/02/25 04:44
03/02/25 04:44
Microbiology
02/26/25 13:51 Pleural Fluid Body Fluid Culture - Final
No Growth After 72 Hours
02/26/25 13:51 Pleural Fluid Gram Stain - Final
02/23/25 11:51 Blood/Venous Blood Culture - Final
No Growth - Final Report
02/23/25 11:11 Blood/Venous Blood Culture - Final
No Growth - Final Report
--- NOTE | 2025-03-02 13:21 | CM ---
CM reviewed chart, patient seen bedside with , discussed preferred SNF when patient stable for discharge: [facility]. Pulm following, may need asept cathether. CM will continue to follow for all discharge planning needs.
Plan; SNF when medically stable, (preferred [facility])
[2025-03-02 14:49] LABS: Procalcitonin 0.45 ng/ml (0.0-0.25)
[2025-03-02] MEDS: LOVENOX 40 MG SC (17:26)
--- NOTE | 2025-03-02 17:44 | W.PN.UPDATE ---
Update Note
Progress Note Update
I was told by RN patient was in A-fib RVR and hypotensive. I came and reevaluated patient immediately. He does feel his heart racing. No chest pain or worsening shortness of breath. Remains on 2 L of oxygen.
Looks frail and acutely ill
Heart irregular rate and rhythm, tachycardic
Lungs decreased breath sounds bilateral more pronounced in the left. Some rhonchi.
He is alert and oriented but he is very weak and alertness fluctuates
A/P:
A-fib RVR and hypotension--> stat EKG and seen and reviewed, will give a bolus of amiodarone 150 mg IV x 1 and then will start him on amiodarone drip. Electrolytes within decent levels. Will obtain a repeat stat chest x-ray. Will get cardiology
consult-discussed with rim fire charger operator today over the phone(Dr Olson). Updated cross coverage physician. Updated over the phone. Will transfer him to IMU for closer monitoring.
[2025-03-02] MEDS: CORDARONE 103 MG IV ×2 (17:58→20:22)
--- NOTE | 2025-03-02 18:28 | PTCARENOTE ---
Pt noted to be sustained 150s on tele. EKG done and Dr. Izquierdo notified and in to see pt. Pt transferred to IMU per MD orders.
[2025-03-02] MEDS: CORDARONE 518 MG IV (18:30)
--- NOTE | 2025-03-02 19:19 | CON.CAR ---
Addendum entered and electronically signed by Shirin Olson DO 03/02/25 22:08:
Spoke with CT surgery PA after he reevaluated patient. Patient received second 150 mg IV bolus of amiodarone and 500 cc normal saline. Amiodarone drip per protocol running. Heart rates improved to 111 bpm. Blood pressures improved to 109/95 mmHg.
Respiratory rate 36. Pulse ox 97% on 2 L. Will continue to follow closely
Original Note:
Consultation
Consultation Request
Date/Time Consultation Requested: 03/02/25
Date/Time Consultation Performed: 03/02/25
Requesting Provider: Dr. Izquierdo
Performing Provider: Dr. Olson
Reason for Consultation: Atrial flutter
Medical History
-
Chief Complaint: dehydration/confusion/Malignancy evaluation
History of Present Illness:
I had the pleasure to meet Luis Chung in [place] [address] after he was transferred for higher level of care after the development of rapid atrial flutter with hypotension. Luis is well-known to my colleague, Dr. Rg Melchor. He is a 74-year-old male
former tobacco smoker with a past medical history of ICM with recovered EF, stage II diastolic dysfunction, CAD/Inferior MO s/p CABG x 5 [KLINE to LAD, seq SVG to V9-G1-LL3-RPDA] and mitral valve repair with a 30mm annuloplasty ring 06/04/2015,
hypertension, hypercholesterolemia, RBBB who presented to ER 02/22/25 with confusion, fatigue, poor oral intake, nausea and right groin pain.
.
He was found to have a large expansile osseous lesion in the right pubic bone and superior pubic ramus suspicious for sarcomatous transformation on MRI in December after abnormal hip xrays in November after a fall. He underwent a biopsy of the right pubic
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
right lateral 6th rib, Left infrahilar mass encasing proximal LLL pulmonary artery and Peribronchovascular spread of malignancy into the left upper lobe, Extensive mediastinal/hilar and supraclavicular lymphadenopathy with lung mass and pleural
effusion, Large bilateral adrenal metastases, Large metastatic lymph nodes in the right upper quadrant, Large peritoneal metastases in the left upper quadrant and a 7 mm enhancing metastasis in the left frontal lobe along with several tiny
nonhemorrhagic acute/subacute infarcts scattered throughout the left frontoparietal and right posterior parieto-occipital lobes. Initially had, BRIDGETTE, hypoNa and hyperCa of malignancy that improved s/p pamidronate, calcitonin and IVF. Today he
underwent left thoracentesis removing 1650 cc. He is being seen by Oncology and pulmonary services. He is now DNR. He went into rapid atrial flutter with borderline BP prompting cardiology consult. No prior history of AF/flutter. Luis gives no
specific complaints but states he is uncomfortable. He denies chest pain/pressure.
PMHx:
ICM with recovered EF; not on diuretics prior to hospitalization
CAD/Inferior MO s/p CABG x 5 [KLINE to LAD, seq SVG to [id number]-ZZ7-RPDA], 06/04/15
severe MR s/p mitral valve repair with a 30mm annuloplasty ring 06/04/2015
hypertension
Hypercholesterolemia
RBBB
former TOB
Past Medical History
Past Medical History: Other (see HPI)
Past Surgical History: Other (LHC, CABG, MVR, right TKR, Mohs)
Social History
Tobacco: Former Smoker
Alcohol: Other (unable to obtain)
Drug: None
Personal:
Living: With Family
Family History
Family History: Unable to Obtain
Allergies / Home Medications
Allergy/AdvReac Type Severity Reaction Status Date / Time
seasonal Allergy sneezing Uncoded 02/22/25 11:04
�Medication �Instructions �Recorded �Confirmed �Type
atorvastatin 40 mg tablet 40 mg PO DAILY High cholesterol 08/09/19 02/22/25 History
lisinopril 20 mg tablet 20 mg PO DAILY Blood pressure 10/06/21 02/22/25 History
acetaminophen 650 mg 650 mg PO Q4HPRN PRN PAIN 02/22/25 02/22/25 History
tablet,extended release
aspirin 81 mg tablet 81 mg PO DAILY 02/22/25 02/22/25 History
ezetimibe 10 mg tablet 10 mg PO DAILY 02/22/25 02/22/25 History
meloxicam 15 mg tablet 15 mg PO DAILY 02/22/25 02/22/25 History
metoprolol succinate 25 mg 25 mg PO DAILY 02/22/25 02/22/25 History
tablet,extended release 24 hr
Review of Systems
-
Unable to obtain full review of systems at this time due to: Acuity
History Source: Patient and Family
All other systems: Negative unless noted
Constitutional: Fatigue
Respiratory: Trouble Breathing
Cardiac: No Symptoms
Abdomen/GI: Nausea and Anorexia
Musculoskeletal: Muscle Pain and Edema
Neurological: Weakness
Physical Exam
Vital Signs
Temp Pulse Resp BP Pulse Ox
98.3 F 109 24 93/53 96
03/02/25 18:36 03/02/25 15:00 03/02/25 15:00 03/02/25 15:00 03/02/25 15:00
Lab Results
03/02/25 04:44
03/02/25 04:44
Physical Exam
General: Other (appears ill, HR 156 AFL, 93/53, RR 37 98% 2 lnc)
HEENT: Anicteric
Respiratory: Other (decreased left side. coarse breath sounds, poor effort)
Cardiac: S1/S2, Irregular Rhythm and Peripheral Edema; Negative Murmur
Breast: Deferred by me
GI: Soft, Non Tender, Normal Bowel Sounds and Distended
Rectal: Deferred by Provider
Neuro: Awake, Alert and Nonfocal/Grossly Intact
Psych: Confused
Impression / Plan
-
Associate Technician: Dr. Melchor
Impression:
Rapid paroxysmal atrial flutter/fibrillation, currently in rapid atrial flutter 2:1, new this admission with borderline blood pressures
Metastatic cancer, new dx
-large expansile osseous lesion in the right pubic bone and superior pubic ramus suspicious for sarcomatous transformation on MRI in December after abnormal hip xrays in November after a fall s/p biopsy of the right pubic bone via Ortho oncologist on
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
-CT: multifocal osseous mets including a large destructive met to T5 and right lateral 6th rib, Left infrahilar mass encasing proximal LLL pulmonary artery and Peribronchovascular spread of malignancy into the left upper lobe, Extensive
mediastinal/hilar and supraclavicular lymphadenopathy with lung mass and pleural effusion, Large bilateral adrenal metastases, Large metastatic lymph nodes in the right upper quadrant, Large peritoneal metastases in the left upper quadrant
-MRI brain: 7 mm enhancing metastasis in the left frontal lobe along with several tiny nonhemorrhagic acute/subacute infarcts scattered throughout the left frontoparietal and right posterior parieto-occipital lobes.
BRIDGETTE, resolved after hydration
HypoNa, resolved
hyperCa of malignancy that improved s/p pamidronate, calcitonin and IVF.
Ansarca/ left pleural effusion s/p thoracentesis removing 1650 cc. 03/02/25, path pending
ICM with recovered EF; not on diuretics prior to hospitalization
CAD/Inferior MO s/p CABG x 5 [KLINE to LAD, seq SVG to [id number]], 06/04/15
Hx of severe MR s/p mitral valve repair with a 30mm annuloplasty ring 06/04/2015
hypertension
Hypercholesterolemia
RBBB
former TOB
echocardiogram 03/01/25: Normal left ventricular size and function. Normal regional wall motion. Left ventricular ejection fraction is 60-65% by visual assessment. Status post mitral valve repair. Peak/mean gradients across the mitral valve are 8/4
mmHg. Trace mitral regurgitation is seen. Trileaflet, sclerotic aortic valve. No aortic stenosis or aortic regurgitation. Mild tricuspid regurgitation. Estimated pulmonary artery pressure of 30-35 mmHg. Assuming a right atrial pressure of 3mmHg.
Trivial pericardial effusion. Compared to prior study dated 10/18/2024, there is no significant change
Lexiscan nuclear stress test 10/05/24: moderate, mild basal to distal inferior and inferolateral perfusion defect which is predominantly fixed. This defect does improve somewhat prone imaging suggesting some level of attenuation. There is no
significant ischemia. Systolic function is normal. The ejection fraction is 67%.
EKG 02/26: ATRIAL FIBRILLATION WITH RAPID VENTRICULAR RESPONSE WITH PREMATURE VENTRICULAR
OR ABERRANTLY CONDUCTED COMPLEXES. RIGHT BUNDLE BRANCH BLOCK. INFERIOR INFARCT (CITED ON OR BEFORE 26-FEB-2025)
EKG 03/02: Atrial flutter 2:1 156 bpm.RBBB
Plan:
Paroxysmal atrial fibrillation noted during this hospitalization currently in a rapid atrial flutter 2-1 with borderline hemodynamics
-Acuity discussed with hospitalist and patient transferred to IMU for closer monitoring
-He has already received 150 mg IV bolus of amiodarone and an amiodarone drip is being initiated.
-Given medical complexity including brain metastasis and microhemorrhages on MRI of the brain no anticoagulation will be initiated.
-Monitor blood pressure closely; hopefully will improve with control of heart rate
-check TSH
Coronary artery disease/history of ischemic cardiomyopathy status post remote CABG and mitral valve repair
-Difficult historian at the moment however denies chest pain.
-Recent echocardiogram this admission with preserved ejection fraction, stable mitral valve repair and no hemodynamically significant valve pathology.
-Will continue aspirin 81 mg daily if okay with oncology, continue atorvastatin, ezetimibe.
- Outpatient lisinopril held
- Metoprolol succinate started this admission on February 27, 2025 not given yesterday and administered prior to this consultation today. Will place hold parameters
Hypoxic respiratory distress
-Monitor respiratory status closely.
-Status post approximately 1600 cc left pleural fluid with thoracentesis today,pending cytology
-Continue continue antibiotics for left lower lobe postobstructive pneumonia versus lymphangitic spread of malignancy per pulmonary
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
-Oncology has been consulted and arranging next steps with [facility].
-Pain control
Updated sister Newton over the telephone and answered all questions
DNR
Data Reviewed
-
EKG: Tracing Personally Visualized and interpreted
Radiology: Report Reviewed by me
CT Scan: Report Reviewed by me
Ultrasound: Report Reviewed by me
MRI: Report Reviewed by me
Medical Tests (Nuc Med, Echo etc): Report Reviewed by me
Labs: Labs Reviewed by me
Old Records: Reviewed
[2025-03-02] MEDS: KCL 20 MEQ PO (20:39)
[2025-03-02] MEDS: MAGNESIUM OXIDE 500 MG PO (20:39)
[2025-03-02] MEDS: NSS 250 IV (20:52)
--- NOTE | 2025-03-02 23:39 | PTCARENOTE ---
Assumed care for patient overnight, report given from maricarmen RN. Pt AAOx3, confused at times. Received patient on amiodarone gtt 1mg/min. Dr. Olson bedside to assess the pt. Pt maintaining HR in the 150's. EKG showed critical high HR and
A-flutter w/ BBB. Order for another 150mg amiodarone bolus over 10 minutes and to resume amiodarone gtt. Pt HR 100s-140's no longer sustaining 150s. Dr. Valencia bedside to assess the pt. Order for a 250ml bolus for hypotension. BP following the
bolus 92/47 MAP 61, REEL SLITTER So Roxana notified. No new order at this time. Pt on 4L NC as pt became tachycardic with the high HR. SpO2 97% RR 25. Rhonchi at the left base of the lungs, crackles b/l bases. Pt denies chest pain, SOB, or palpitations. Pt
settled and educated on the call gan, call gan is within reach. Bed alarm on due to high fall risk.
[2025-03-03] VITALS (32 sets, daily range): BP systolic 91–118; BP diastolic 40–60; BMI 24.4
[2025-03-03] MEDS: UNASYN IV ×4 (03:37→22:17)
[2025-03-03 06:08] LABS: Hematocrit 27.9 % (39.0-52.0); Hemoglobin 9.7 g/dL (13.0-18.0); Mean Corp Hgb Conc. 34.8 g/dL (33.0-37.0); Mean Corpuscular Hgb 31.6 pg (27.0-31.0); Mean Corpuscular Volume 90.9 fL (80.0-94.0); Mean Platelet Volume 9.4 fL (7.4-10.4); Platelet Count 331 10^3/uL (130-400); Red Blood Cell Count 3.07 10^6/uL (4.70-6.10); Red Cell Dist. Width 17.9 % (11.5-14.5)
[2025-03-03 06:28] LABS: Blood Urea Nitrogen 35 mg/dl (9-20); Calcium 8.9 mg/dl (8.4-10.2); Carbon Dioxide 21 mmol/L (22-30); Chloride 102 mmol/L (98-107); Estimated Creatinine Clearance 101 ml/min; Glucose 93 mg/dl (70-99); Magnesium 2.4 mg/dl (1.6-2.3); Sodium 131 mmol/L (135-145); eGFR > 60.00
[2025-03-03 07:00] LABS: TSH Reflex To Free T4 3.11 uIU/ml (0.47-4.68)
[2025-03-03 07:31] LABS: % Basophils 0.3 % (0-2); % Eosinophils 0.2 % (0-6); % Immature Granulocytes 1.4 % (0-0.5); % Lymphocytes 5.5 % (20.5-51.1); % Monocytes 5.7 % (1.7-9.3); % Neutrophils 86.9 % (42.2-75.2); Absolute Basophils 0.1 10^3/uL (0-0.2); Absolute Eosinophils 0.1 10^3/uL (0-0.7); Absolute Immature Granulocytes 0.4 10^3/uL (0-0.05); Absolute Lymphocytes 1.4 10^3/uL (1.2-3.4); Absolute Monocytes 1.5 10^3/uL (0.1-0.6); Absolute Neutrophils 22.6 10^3/uL (1.4-6.5); Nucleated Red Blood Cells % 0.2 % (-)
[2025-03-03] MEDS: PACERONE 400 MG PO ×2 (08:16→19:31)
[2025-03-03] MEDS: TOPROL XL 25 MG PO (08:17)
[2025-03-03] MEDS: ULTRAM 50 MG PO ×2 (08:17→19:31)
[2025-03-03] MEDS: ZETIA 10 MG PO (08:17)
[2025-03-03] MEDS: LIPITOR 40 MG PO (08:17)
[2025-03-03] MEDS: LOW STRENGTH ASPIRIN 81 MG PO (08:17)
--- NOTE | 2025-03-03 08:40 | W.PN.CARDCBS ---
Today's Communication / Plan
-
Metoprolol with hold parameters
Transition to oral amiodarone and in sinus rhythm today
Not on oral anticoagulation candidate given his brain MRI
Will follow with you
Impression / Plan
-
Product Marketing Manager: Dr. Melchor
Impression:
Rapid paroxysmal atrial flutter/fibrillation, currently in rapid atrial flutter 2:1, new this admission with borderline blood pressures
Metastatic cancer, new dx
-large expansile osseous lesion in the right pubic bone and superior pubic ramus suspicious for sarcomatous transformation on MRI in December after abnormal hip xrays in November after a fall s/p biopsy of the right pubic bone via Ortho oncologist on
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
-CT: multifocal osseous mets including a large destructive met to T5 and right lateral 6th rib, Left infrahilar mass encasing proximal LLL pulmonary artery and Peribronchovascular spread of malignancy into the left upper lobe, Extensive
mediastinal/hilar and supraclavicular lymphadenopathy with lung mass and pleural effusion, Large bilateral adrenal metastases, Large metastatic lymph nodes in the right upper quadrant, Large peritoneal metastases in the left upper quadrant
-MRI brain: 7 mm enhancing metastasis in the left frontal lobe along with several tiny nonhemorrhagic acute/subacute infarcts scattered throughout the left frontoparietal and right posterior parieto-occipital lobes.
BRIDGETTE, resolved after hydration
HypoNa, resolved
hyperCa of malignancy that improved s/p pamidronate, calcitonin and IVF.
Ansarca/ left pleural effusion s/p thoracentesis removing 1650 cc. 03/02/25, path pending
ICM with recovered EF; not on diuretics prior to hospitalization
CAD/Inferior ID s/p CABG x 5 [KLINE to LAD, seq SVG to [id number]-RPDA], 06/04/15
Hx of severe MR s/p mitral valve repair with a 30mm annuloplasty ring 06/04/2015
hypertension
Hypercholesterolemia
RBBB
former TOB
echocardiogram 03/01/25: Normal left ventricular size and function. Normal regional wall motion. Left ventricular ejection fraction is 60-65% by visual assessment. Status post mitral valve repair. Peak/mean gradients across the mitral valve are 8/4
mmHg. Trace mitral regurgitation is seen. Trileaflet, sclerotic aortic valve. No aortic stenosis or aortic regurgitation. Mild tricuspid regurgitation. Estimated pulmonary artery pressure of 30-35 mmHg. Assuming a right atrial pressure of 3mmHg.
Trivial pericardial effusion. Compared to prior study dated 10/18/2024, there is no significant change
Lexiscan nuclear stress test 10/05/24: moderate, mild basal to distal inferior and inferolateral perfusion defect which is predominantly fixed. This defect does improve somewhat prone imaging suggesting some level of attenuation. There is no
significant ischemia. Systolic function is normal. The ejection fraction is 67%.
EKG 02/26: ATRIAL FIBRILLATION WITH RAPID VENTRICULAR RESPONSE WITH PREMATURE VENTRICULAR
OR ABERRANTLY CONDUCTED COMPLEXES. RIGHT BUNDLE BRANCH BLOCK. INFERIOR INFARCT (CITED ON OR BEFORE 26-FEB-2025)
EKG 03/02: Atrial flutter 2:1 156 bpm.RBBB
Plan:
Paroxysmal atrial fibrillation noted during this hospitalization currently in a rapid atrial flutter 2-1 with borderline hemodynamics
-Acuity discussed with hospitalist and patient transferred to IMU for closer monitoring
-He has already received 150 mg IV bolus of amiodarone and an amiodarone drip is being initiated. He converted to sinus rhythm overnight and I am transitioning him to oral amiodarone with daily EKG
-Given medical complexity including brain metastasis and microhemorrhages on MRI of the brain no anticoagulation will be initiated.
-Monitor blood pressure closely; hopefully will improve with control of heart rate
-check TSH
Coronary artery disease/history of ischemic cardiomyopathy status post remote CABG and mitral valve repair
-Difficult historian at the moment however denies chest pain.
-Recent echocardiogram this admission with preserved ejection fraction, stable mitral valve repair and no hemodynamically significant valve pathology.
-Will continue aspirin 81 mg daily if okay with oncology, continue atorvastatin, ezetimibe.
- Outpatient lisinopril held
- Metoprolol succinate started this admission on February 27, 2025 not given yesterday and administered prior to this consultation today. Will place hold parameters
Hypoxic respiratory distress
-Monitor respiratory status closely.
-Status post approximately 1600 cc left pleural fluid with thoracentesis today,pending cytology
-Continue continue antibiotics for left lower lobe postobstructive pneumonia versus lymphangitic spread of malignancy per pulmonary
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
-Oncology has been consulted and arranging next steps with [facility] oncology.
-Pain control
DNR
Progress Note - Product Marketing Manager
Subjective
Date of Service: March 03, 2025
Converted to sinus rhythm overnight
Objective
Labs:
03/03/25 05:45
03/03/25 05:45
Labs
Hgb 9.7 g/dL (13.0-18.0) L 03/03/25 05:45
Hct 27.9 % (39.0-52.0) L 03/03/25 05:45
Plt Count 331 10^3/uL (130-400) 03/03/25 05:45
Sodium 131 mmol/L (135-145) L 03/03/25 05:45
Potassium 4.0 mmol/L (3.5-5.1) 03/03/25 05:45
BUN 35 mg/dl (9-20) H 03/03/25 05:45
Creatinine 0.6 mg/dL (0.7-1.3) L 03/03/25 05:45
Glucose 93 mg/dl (70-99) 03/03/25 05:45
Vital Signs and I&O:
Vital Signs
Temp Pulse Resp BP Pulse Ox
97.9 F 97 20 118/58 96
03/03/25 03:03 03/03/25 08:17 03/03/25 05:45 03/03/25 08:17 03/03/25 05:45
Vital Signs
Temp Pulse Resp BP Pulse Ox
97.9 F 97 20 118/58 96
03/03/25 03:03 03/03/25 08:17 03/03/25 05:45 03/03/25 08:17 03/03/25 05:45
Intake & Output
03/01/25 03/02/25 03/03/25 03/04/25
06:59 06:59 06:59 06:59
Intake Total 1900 / 1900 240 / 240 470 / 470
Output Total 800 / 800 300 / 300 1000 / 1000
Balance 1100 / 1100 -60 / -60 -530 / -530
Physical Exam
Physical Exam
����Physical Exam
���������������������General:��no apparent distress, not acutely ill
���������������������������Neck:��supple. no meningeal signs. normal psoterior pharynx
������������������������
���������������������������Heart:��s1/s2 regular rate and rhythm, no murmur. equal radial pulses.
��������������������������Lungs: ��no acute respiratory distress. clear bilaterally
����������������������Abdomen:�normal bowel sounds. not tender. no CVAT
��������������������������Neuro:��alert and oriented. no focal neurological deficits
������������������������������Skin: ��no rash
�����������������������Psychiatric:�well kept. interactive and cooperative
�����������������������Extremities:��no edema. no calf tenderness. negative homans. good distal pulses
��
�
--- NOTE | 2025-03-03 10:04 | W.PN.HOSP.TC ---
Today's Communication/Plan
-
Amiodarone. Antibiotics. C discussions
Assessment / Plan
Assessment / Plan
Physical exam:
General: Acute on chronically ill
HEENT: Normocephalic, Atraumatic and Moist Mucous Membranes
Respiratory: Decreased breath sounds bilateral more pronounced on the left; Negative Wheezes, Rales. Left base rhonchi
Cardiac: Regular Rhythm and S1/S2
GI: Soft, Nontender and Nondistended
Musculoskeletal: Hip/pelvic discomfort. No Clubbing, No Cyanosis and No Edema
Neuro: Awake, Alert and Oriented, no neurological deficits but generalized weakness and mild encephalopathy.
Psych: Anxious
A/P:
A-fib RVR and hypotension:
Yesterday stat EKG and seen and reviewed, will give a bolus of amiodarone 150 mg IV x 1 and then will start him on amiodarone drip. Electrolytes within decent levels. Obtained a repeat stat chest x-ray yesterday. Got cardiology consulted-discussed
with shot coat tender over the phone(Dr Olson). Updated cross coverage physician. Updated over the phone.Transfered him to IMU for closer monitoring.
Today patient in normal sinus rhythm and normotensive--> switch to oral amiodarone today
Not a candidate for anticoagulation
Appreciated cardiology consult and follow-up
Discussed with patient and sister at bedside today and we discussed about poor prognosis again and they will meet as family to discuss the possibility of hospice and they will get back to us.
Worsening shortness of breath and hypoxia:
Likely related to worsening left pleural effusion, likely malignant
Seen in follow-up chest x-ray and significantly increased opacity in the left lung prior
Discussed with pulmonary today-cytology came back positive for malignancy
Status post repeat left thoracentesis on Wednesday and ASEPT placement if recurrent
Plan to repeat a chest x-ray in 48 hours
Discussed with at bedside prior
Stroke and metastatic brain disease:
Seen MRI of the brain
Started on aspirin and statin
Plan for echocardiogram and lumbar spine MRI
Neurology consult appreciated
Left lower lobe postobstructive pneumonia (?lymphangitic spread malignancy) and left lung mass (likely malignant):
Continue IV Unasyn
Plan to repeat procalcitonin yesterday and borderline elevated so we will continue with antibiotics for now and recheck Pro-Moose on Wednesday
On IDDSI level 5 diet
Video swallow study yesterday
?need bronchoscopy if diagnostic tests non revealing but await current work up
Updated sister over the phone prior, Newton-she stated she is the person to be in contact given her medical background and also understands that as well. She also wants oncology to reach out to her.
Extensive mediastinal, hilar, and supraclavicular adenopathy:
Status post lymph node biopsy on 02/26
Pleural effusion and lung mass:
Status post left thoracentesis on 03/02
Status post thoracentesis on 02/26 with exudate results positive malignant cytology preliminary report
Severe hypercalcemia of malignancy:
Resolved
Status post pamidronate and calcitonin and IV fluid
Metastatic sarcomatoid carcinoma :
Malignant spindle and epithelioid cell neoplasm per biopsy on 02/19 from expansile lseion right pelvis
Follows up with Dr. Dozier orthopedic oncology at [facility]
Our oncology discussed with Dr. Dozier as per notes--> plan to be treated as metastatic sarcomatoid carcinoma versus primary lung malignancy with metastatic disease.
Pain control on tramadol
Chronic HFpEF:
Monitor volume status closely
History of severe mitral regurgitation:
Status post mitral valve repair in the past
Hypertension:
Usual meds
Hyperlipidemia:
Statin
CAD:
Status post CABG in the past
Continue aspirin, beta-blockers, and statins.
NOIM:
Resolved
Multifactorial etiology NSAIDs use, dehydration, postobstructive, hypercalcemia, other
Urinary retention:
Status post Walker
Acute metabolic encephalopathy:
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
Has received antipsychotics during this hospital stay
Hyponatremia:
Improving
Anemia:
Monitor hemoglobin closely
Stage II sacral pressure injury, POA
DVT prophylaxis:
Lovenox SQ
CODE STATUS:
DNR
Prognosis guarded (patient and family still prefer restorative treatment but they are contemplating the possibility of palliative/hospice care)
Total time spent on today's encounter was 57 minutes which included time spent in counseling the patient/family regarding diagnosis and treatment plan as listed above, goals of care, and symptom management. Case was discussed with nursing staff,
specialists, and care coordinators/case management. All labs and imaging personally reviewed by me. Remainder the time spent in detailed review of previous records, lab data, imaging, and other medical provider documentation.
Anticipated Discharge: > 48 hours
Subjective/Interval History
-
Date of Service: March 03, 2025
Patient back in normal sinus rhythm this morning. Looks frail overall. Afebrile
Objective Data
-
Labs:
Laboratory Results
03/03/25
05:45
WBC 26.0 H
Hgb 9.7 L
Hct 27.9 L
Plt Count 331
Sodium 131 L
Potassium 4.0
Chloride 102
Carbon Dioxide 21 L
BUN 35 H
Creatinine 0.6 L
Glucose 93
Calcium 8.9
Vital Signs:
Vital Signs
Temp Pulse Resp BP Pulse Ox
97.6 F 97 20 118/58 96
03/03/25 08:44 03/03/25 08:17 03/03/25 05:45 03/03/25 08:17 03/03/25 05:45
I&O
03/02/25 03/03/25 03/04/25
06:59 06:59 06:59
Intake Total 240 / 240 470 / 470
Output Total 300 / 300 1000 / 1000
Balance -60 / -60 -530 / -530
[2025-03-03] MEDS: STERILE WATER FOR INJECTION IV (10:36)
[2025-03-03] MEDS: XANAX 0.25 MG PO ×2 (11:31→19:31)
--- NOTE | 2025-03-03 15:40 | W.PN.NEURO.1 ---
Today's Communication / Plan
-
.
Subjective/Objective
Subjective Data
Date of Service: March 03, 2025
Neurology follow-up note.
Mr. Chung reports no complaints.
24-hour events: Rapid A-fib up to 153 yesterday in the evening, transiently hypotensive down to 91/40 in the morning, afebrile.
Labs: WBCs�26.0, hemoglobin�9.7, sodium�131, normal creatinine, vitamin B12�984, normal TSH
TTE- interatrial septum is intact with no evidence of shunting by color flow Doppler. No intracardiac mass or thrombus formation seen.
LS spine MRI w/wo yolanda-multilevel degenerative changes of the lumbar spine most pronounced at L4-L5 where there is resultant moderate canal stenosis with left lateral recess narrowing and contacting of the transiting left L5 nerve roots, moderate
right-sided neuroforaminal narrowing and moderate/severe left-sided neuroforaminal narrowing. There is moderate/severe bilateral neuroforaminal narrowing of L5-S1. There is STIR hyperintense signal and enhancement within the left lateral aspect of
the L3 vertebral body which may represent degenerative edema, less likely a focal lesion or infectious/inflammatory process.
Brain MRI w/wo yolanda(02/28/2025) Several tiny acute/subacute infarcts scattered throughout the left frontoparietal and right posterior parieto-occipital lobes. 7 mm enhancing metastasis in the left frontal lobe.
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
PSH:thoracentesis, MVR, CABG,
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
All:NKDA
ROS: Positive for encephalopathy, dysarthria, back pain, dyspnea
General: Well developed. In no acute distress.
Cardio: Regular rate and rhythm without murmur. Extremities are without cyanosis or edema.
Neuro:
Mental Status: Alert, oriented to person, place, year, month. Impaired attention and comprehension (partially due to hearing impairment). Follows simple requests. Nonfluent. No hemineglect.
Cranial Nerves: Pupils are equally round and reactive to light. EOMs full. Visual galvan full to confrontation. No ptosis. No nystagmus. V1-V3 intact to light touch and pinprick bilaterally, symmetric. Face symmetric. Normal hearing AU. The
palate elevated well. SCMs and traps 5/5. Tongue midline. Mild to moderate dysarthria.
Motor: Normal bulk and tone. No pronator or arm drift. Strength 5/5 throughout. Except for hip flexors 3+ out of 5, knee extensors 4 out of 5, full dorsiflexion (pain med exam)
Coordination: No dysmetria or tremor.
Gait: deferred
Assessment and Plan:
I. Cardioembolic acute/subacute stroke. Likely etiology�A-fib.
II. ADMINISTRATIVE ASSISTANT FRONT DESK metastatic disease
III. PA AFib. Not a candidate for systemic anticoagulation.
IV. Encephalopathy (metabolic, vascular, hypoxic, neoplastic)
V. Metastatic sarcomatoid carcinoma
-Continue Telemetry monitoring
-Continue aspirin 81 mg once a day for stroke prophylaxis.
-Continue ASA 81 mg QD for stroke prophylaxis
-Please obtain blood cultures
-Lipitor 40 mg nightly
-DVT prophylaxis.
-Outpatient neuro-oncology consult.
-Case was discussed with patient's sister
-Please recall neurology services any questions or concerns
I personally reviewed all radiology and labs along with past medical records pertinent to current medical problems. Total time spent in patient care is 40 minutes.
Thank you for allowing us to participate in the care of this patient. Please do not hesitate to contact us with any questions or concerns
Objective Data
Vital Signs
Temp Pulse Resp BP Pulse Ox
36.3 C 93 28 102/40 94
03/03/25 14:19 03/03/25 11:15 03/03/25 11:15 03/03/25 11:00 03/03/25 14:09
Lab Results
03/03/25 05:45
03/03/25 05:45
Sodium 131 mmol/L (135-145) L 03/03/25 05:45
Potassium 4.0 mmol/L (3.5-5.1) 03/03/25 05:45
BUN 35 mg/dl (9-20) H 03/03/25 05:45
Glucose 93 mg/dl (70-99) 03/03/25 05:45
Calcium 8.9 mg/dl (8.4-10.2) 03/03/25 05:45
Phosphorus 3.8 mg/dl (2.5-4.5) 02/22/25 15:04
Vitamin B12 984 pg/ml (239-931) H 03/01/25 07:08
Patient Allergies
seasonal Allergy (Uncoded 02/22/25 11:04)
sneezing
Vital Signs and Labs
-
Vital Signs and Labs:
Vital Signs
Temp Pulse Resp BP Pulse Ox
36.3 C 93 28 102/40 94
03/03/25 14:19 03/03/25 11:15 03/03/25 11:15 03/03/25 11:00 03/03/25 14:09
Lab Results
03/03/25 05:45
03/03/25 05:45
Sodium 131 mmol/L (135-145) L 03/03/25 05:45
Potassium 4.0 mmol/L (3.5-5.1) 03/03/25 05:45
BUN 35 mg/dl (9-20) H 03/03/25 05:45
Glucose 93 mg/dl (70-99) 03/03/25 05:45
Calcium 8.9 mg/dl (8.4-10.2) 03/03/25 05:45
Phosphorus 3.8 mg/dl (2.5-4.5) 02/22/25 15:04
Vitamin B12 984 pg/ml (221-969) H 03/01/25 07:08
Medications
-
Medications:
Generic Name Dose Route Start Last Admin
Trade Name Freq PRN Reason Stop Dose Admin
Acetaminophen 650 mg 02/22/25 14:46 03/02/25 18:26
Acetaminophen 325 Mg Tablet PO 03/22/25 14:45 650 mg
Q4HPRN PRN Administration
PAIN
Alprazolam 0.25 mg 03/03/25 11:09 03/03/25 11:31
Alprazolam 0.25 Mg Tablet PO 03/31/25 11:08 0.25 mg
Q8HPRN PRN Administration
anxiety
Amiodarone HCl 400 mg 03/03/25 08:00 03/03/25 08:16
Amiodarone 200 Mg Tablet PO 03/31/25 07:59 400 mg
BID GRISELDA Administration
Aspirin 81 mg 02/23/25 08:00 03/03/25 08:17
Aspirin 81 Mg Chewable Tablet PO 03/23/25 07:59 81 mg
DAILY GRISELDA Administration
Atorvastatin Calcium 40 mg 02/23/25 08:00 03/03/25 08:17
Atorvastatin (Lipitor) 40 Mg Tablet PO 03/23/25 07:59 40 mg
DAILY GRISELDA Administration
Ezetimibe 10 mg 02/23/25 08:00 03/03/25 08:17
Ezetimibe (Zetia) 10 Mg Tablet PO 03/23/25 07:59 10 mg
DAILY GRISELDA Administration
Enoxaparin Sodium 40 mg 02/25/25 18:00 03/02/25 17:26
Enoxaparin Sodium 40 Mg/0.4 Ml Syringe SC 03/25/25 17:59 40 mg
QPM GRISELDA Administration
Ergocalciferol 50,000 units 02/23/25 10:00 03/02/25 11:32
Ergocalciferol (Vitamin D-2) 53741 Units Capsule PO 03/23/25 09:59 50,000 units
Q7D GRISELDA Administration
Ampicillin Sodium/Sulbactam 120 mls @ 240 mls/hr 02/26/25 10:00 03/03/25 11:31
Sodium 3 gm/ Sodium Chloride IV 120 mls
Q6H GRISELDA Administration
Metoprolol Succinate 25 mg 02/26/25 17:47 03/03/25 08:17
Metoprolol 25 Mg Extended Release Tablet PO 03/25/25 07:59 25 mg
DAILY GRISELDA Administration
Metoprolol Tartrate 5 mg 02/26/25 17:46 03/02/25 04:24
Metoprolol 5 Mg/5 Ml Vial IV 03/26/25 17:45 5 mg
Q6HPRN PRN Administration
HR >140
Sodium Chloride 0 flush 02/22/25 15:00 02/26/25 16:12
Sodium Chloride 0.9% (Flush) Syringe IV 03/22/25 14:59 1 flush
PER PROTOCOL GRISELDA Administration
Sterile Water 10 ml 02/23/25 12:00 03/03/25 10:36
Sterile Water For Injection 10 Ml Vial IV 03/23/25 11:59 Not Given
Q24H GRISELDA
Tramadol HCl 50 mg 02/28/25 16:19 03/03/25 08:17
Tramadol Hcl 50 Mg Tablet PO 03/27/25 11:59 50 mg
BID GRISELDA Administration
Home Medications
-
Home Medications
atorvastatin 40 mg tablet 40 mg PO DAILY High cholesterol 08/09/19
lisinopril 20 mg tablet 20 mg PO DAILY Blood pressure 10/06/21
acetaminophen 650 mg tablet,extended release 650 mg PO Q4HPRN PRN PAIN 02/22/25
aspirin 81 mg tablet 81 mg PO DAILY 02/22/25
ezetimibe 10 mg tablet 10 mg PO DAILY 02/22/25
meloxicam 15 mg tablet 15 mg PO DAILY 02/22/25
metoprolol succinate 25 mg tablet,extended release 24 hr 25 mg PO DAILY 02/22/25
[2025-03-03] MEDS: LOVENOX 40 MG SC (18:05)
--- NOTE | 2025-03-03 18:09 | PTCARENOTE ---
Rec'd pt this AM. very weak, OOB x2 to BSC for BM. Pt inermittenly confused. remains on 4L NC. expressed sadness over his medical condition. RN provided support and comfort. Pt now resting.
[2025-03-03] MEDS: TYLENOL 650 MG PO (19:32)
[2025-03-04] VITALS (21 sets, daily range): BP systolic 90–140; BP diastolic 46–75; PULSE 106; BMI 24.5
--- NOTE | 2025-03-04 01:24 | PTCARENOTE ---
Patient is AAOx3, confused at times, slow to speak. Pt appears to be withdrawn and expresses anxiety regarding health. Administered PRN Xanax see NOV. Pt having pain in lower and middle back, Tylenol administered see NOV. NSR on the monitor. BP soft
MASTER ELECTRICIAN aware and continuing to monitor closely. 4L NC SpO2 94%. Rhonchi with fine crackles at the bases. IV abx cont. Call gan within reach, pt ringing appropriately.
[2025-03-04] MEDS: UNASYN IV ×4 (04:02→22:06)
[2025-03-04 05:10] LABS: Hematocrit 27.7 % (39.0-52.0); Hemoglobin 9.3 g/dL (13.0-18.0); Mean Corp Hgb Conc. 33.6 g/dL (33.0-37.0); Mean Corpuscular Hgb 31.5 pg (27.0-31.0); Mean Corpuscular Volume 93.9 fL (80.0-94.0); Mean Platelet Volume 9.3 fL (7.4-10.4); Platelet Count 313 10^3/uL (130-400); Red Blood Cell Count 2.95 10^6/uL (4.70-6.10); Red Cell Dist. Width 18.7 % (11.5-14.5); White Blood Cell Count 26.6 10^3/uL (4.8-10.8)
[2025-03-04 05:20] LABS: Blood Urea Nitrogen 29 mg/dl (9-20); Calcium 8.8 mg/dl (8.4-10.2); Carbon Dioxide 22 mmol/L (22-30); Chloride 103 mmol/L (98-107); Estimated Creatinine Clearance 101 ml/min; Glucose 83 mg/dl (70-99); Magnesium 2.3 mg/dl (1.6-2.3); Potassium 4.1 mmol/L (3.5-5.1); Sodium 132 mmol/L (135-145); eGFR > 60.00
[2025-03-04 07:29] LABS: % Basophils 0.2 % (0-2); % Eosinophils 0.5 % (0-6); % Lymphocytes 5.3 % (20.5-51.1); % Monocytes 5.9 % (1.7-9.3); % Neutrophils 87.1 % (42.2-75.2); Absolute Basophils 0.1 10^3/uL (0-0.2); Absolute Eosinophils 0.1 10^3/uL (0-0.7); Absolute Immature Granulocytes 0.3 10^3/uL (0-0.05); Absolute Lymphocytes 1.4 10^3/uL (1.2-3.4); Absolute Monocytes 1.6 10^3/uL (0.1-0.6); Absolute Neutrophils 23.2 10^3/uL (1.4-6.5); Nucleated Red Blood Cells % 0.1 % (-)
[2025-03-04] MEDS: ZETIA 10 MG PO (08:40)
[2025-03-04] MEDS: TYLENOL 650 MG PO ×2 (08:41→13:58)
[2025-03-04] MEDS: LOW STRENGTH ASPIRIN 81 MG PO (08:42)
[2025-03-04] MEDS: PACERONE 400 MG PO ×2 (08:42→20:22)
[2025-03-04] MEDS: LIPITOR 40 MG PO (08:42)
[2025-03-04] MEDS: ULTRAM 50 MG PO ×2 (08:43→20:23)
[2025-03-04] MEDS: TOPROL XL 25 MG PO (08:43)
--- NOTE | 2025-03-04 09:05 | PTCARENOTE ---
Addendum entered by Ana Maria Li RN 03/04/25 09:14:
left anterior chest coarse rhonchi
Original Note:
pt increasingly anxious and tachypneic with repositioning; resp rate 28-32 at rest, increasing to 38-40 when repositioned. pox remaining at 95% on 4L. Tachycardic with heart rate 101-110 prior to scheduled amiodarone and metoprolol. Symptomatic; 'I
can't breathe'. Lung sounds diminished with bibasilar crackles. Continuing to monitor
--- NOTE | 2025-03-04 09:55 | W.PN.HOSP.TC ---
Addendum entered and electronically signed by Inocencio Izquierdo MD 03/04/25 16:38:
Patient with increased work of breathing and requiring more oxygen-currently on 4 L of oxygen. Came and reevaluate patient. Discussed with patient sister and at bedside. We will try BiPAP to help with work of breathing and increased oxygen
as needed. Use morphine low-dose IV x 1. Keep plan of chest x-ray for tomorrow and likely Pleurx if needed. If worsening despite BiPAP would do x-ray sooner. They could not do the procalcitonin so okay to check tomorrow. Family understands poor
prognosis.
Original Note:
Today's Communication/Plan
-
See plan
Assessment / Plan
Assessment / Plan
Physical exam:
General: Acute on chronically ill
HEENT: Normocephalic, Atraumatic and Moist Mucous Membranes
Respiratory: Decreased breath sounds bilateral more pronounced on the left; Negative Wheezes, Rales. Left base rhonchi
Cardiac: Regular Rhythm and S1/S2
GI: Soft, Nontender and Nondistended
Musculoskeletal: Hip/pelvic discomfort. No Clubbing, No Cyanosis and No Edema
Neuro: Awake, Alert and Oriented, no neurological deficits but generalized weakness and mild encephalopathy.
Psych: Anxious
A/P:
Acute hypoxic respiratory insufficiency multifactorial due to malignant left pleural effusion and left lower lobe postobstructive pneumonia (?lymphangitic spread malignancy) and left lung mass (likely malignant):
On 2 L of oxygen currently-wean as able
Status post repeat left thoracentesis on Wednesday and ASEPT placement if recurrent on Wednesday
Continue IV antibiotics but see below
We will repeat procalcitonin today and if trending down will discontinue antibiotics
Discussed with pulmonary today-cytology came back positive for malignancy and he will discuss further tomorrow with patient and family.
Remains on IDDSI level 5 diet status post video swallow study on Wednesday
Discussed with patient and sister at bedside yesterday and I have discussed with prior and we discussed about poor prognosis again and they will meet as family to discuss the possibility of hospice and they will get back to us.
Plan to repeat a chest x-ray tomorrow, Wednesday
Discharge disposition to rehab this coming week
Paroxysmal A-fib:
Currently in normal sinus rhythm
Continue oral amiodarone
Continue oral metoprolol
Not a candidate for anticoagulation
Appreciated cardiology
Hypotension:
Related to A-fib and now improved
Embolic stroke and metastatic brain disease:
Seen MRI of the brain
Started on aspirin and statin
Not a candidate for anticoagulation
Status post echocardiogram and lumbar spine MRI
Neurology consult appreciated
Extensive mediastinal, hilar, and supraclavicular adenopathy:
Status post lymph node biopsy on 02/26
Pleural effusion and lung mass:
Status post recurrent left thoracentesis on 03/02
Status post thoracentesis on 02/26 with exudate results positive malignant cytology preliminary report
Severe hypercalcemia of malignancy:
Resolved
Status post pamidronate and calcitonin and IV fluid
Metastatic sarcomatoid carcinoma :
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
Follows up with Dr. Dozier orthopedic oncology at [place]
Our oncology discussed with Dr. Dozier as per notes--> plan to be treated as metastatic sarcomatoid carcinoma versus primary lung malignancy with metastatic disease.
Pain control on tramadol
Chronic HFpEF:
Monitor volume status closely
History of severe mitral regurgitation:
Status post mitral valve repair in the past
Hypertension:
Usual meds
Anemia:
Hemoglobin 9.3 today
Hyperlipidemia:
Statin
CAD:
Status post CABG in the past
Continue aspirin, beta-blockers, and statins.
NOMI:
Resolved
Multifactorial etiology NSAIDs use, dehydration, postobstructive, hypercalcemia, other
Urinary retention:
Status post Walker
Acute metabolic encephalopathy:
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
Has received antipsychotics during this hospital stay
Hyponatremia:
Improving
Anemia:
Monitor hemoglobin closely
Stage II sacral pressure injury, POA
DVT prophylaxis:
Lovenox SQ
CODE STATUS:
DNR
Prognosis guarded (patient and family still prefer restorative treatment but they are contemplating the possibility of palliative/hospice care)
Total time spent on today's encounter was 50 minutes which included time spent in counseling the patient/family regarding diagnosis and treatment plan as listed above, goals of care, and symptom management. Case was discussed with nursing staff,
specialists, and care coordinators/case management. All labs and imaging personally reviewed by me. Remainder the time spent in detailed review of previous records, lab data, imaging, and other medical provider documentation.
Anticipated Discharge: 24 - 48 hours
Subjective/Interval History
-
Date of Service: March 04, 2025
Patient feels tired. No chest pain or worsening shortness of breath. Afebrile. Looks frail overall
Objective Data
-
Labs:
Laboratory Results
03/04/25
04:45
WBC 26.6 H
Hgb 9.3 L
Hct 27.7 L
Plt Count 313
Sodium 132 L
Potassium 4.1
Chloride 103
Carbon Dioxide 22
BUN 29 H
Creatinine 0.6 L
Glucose 83
Calcium 8.8
Vital Signs:
Vital Signs
Temp Pulse Resp BP Pulse Ox
98.0 F 101 27 119/56 95
03/04/25 02:27 03/04/25 08:43 03/04/25 07:00 03/04/25 08:43 03/04/25 07:00
I&O
03/03/25 03/04/25 03/05/25
06:59 06:59 06:59
Intake Total 470 / 470 240 / 240
Output Total 1000 / 1000 525 / 525
Balance -530 / -530 -285 / -285
[2025-03-04] MEDS: XANAX 0.25 MG PO (11:51)
[2025-03-04] MEDS: STERILE WATER FOR INJECTION IV (13:58)
--- NOTE | 2025-03-04 14:51 | PTCARENOTE ---
pt remains dyspneic, although less anxious after xanax given at 1145. tachypneic between 28 and 32 all day with pox 95% on O2 4L. Diaphoretic, shallow resp. Weak non-productive cough. Bibasilar and left anterior chest crackles. Has not voided today
- bladder scanned for 269. tachycardic in low 100's. b/p 1 teens systolic. EKG sinus tachycardia. Dr. Izquierdo notified. Continuing to monitor
--- NOTE | 2025-03-04 16:08 | PTCARENOTE ---
pt unable to tolerate bipap; refusing. Offered morphine 1 mg prior for pain, relief of respiratory distress and potential decrease in anxiety and ease of tolerance of bipap. Pt refused. Continued oxygen at 4L nasal canula. Continuing to monitor.
[2025-03-04] MEDS: LOVENOX 40 MG SC (17:05)
--- NOTE | 2025-03-04 23:25 | PTCARENOTE ---
Patient resp rate 30s at rest up to 44 with OOB to BSC. Pt instructed and coached through deep breathing and slowing rate. Pt OOb to BSC for large soft brown BM.
[2025-03-05] VITALS (19 sets, daily range): BP systolic 100–131; BP diastolic 56–78; BMI 24.7
--- NOTE | 2025-03-05 02:18 | PTCARENOTE ---
Assumed care from previous RN. Pt continues to refuse BiPAP. Respirations 26-30. SPO2 96% 4L. Pt able to make needs known. Call gan within reach. bed in lowest position.
[2025-03-05] MEDS: UNASYN IV ×2 (03:24→09:32)
[2025-03-05 04:53] LABS: Hematocrit 28.1 % (39.0-52.0); Hemoglobin 9.5 g/dL (13.0-18.0); Mean Corp Hgb Conc. 33.8 g/dL (33.0-37.0); Mean Corpuscular Hgb 32.3 pg (27.0-31.0); Mean Corpuscular Volume 95.6 fL (80.0-94.0); Mean Platelet Volume 9.3 fL (7.4-10.4); Platelet Count 332 10^3/uL (130-400); Red Blood Cell Count 2.94 10^6/uL (4.70-6.10); Red Cell Dist. Width 19.6 % (11.5-14.5); White Blood Cell Count 28.9 10^3/uL (4.8-10.8)
[2025-03-05 05:07] LABS: Blood Urea Nitrogen 36 mg/dl (9-20); Calcium 9.1 mg/dl (8.4-10.2); Carbon Dioxide 22 mmol/L (22-30); Chloride 102 mmol/L (98-107); Estimated Creatinine Clearance 76 ml/min; Glucose 95 mg/dl (70-99); Potassium 4.3 mmol/L (3.5-5.1); Sodium 132 mmol/L (135-145); eGFR > 60.00
[2025-03-05 05:17] LABS: Procalcitonin 0.67 ng/ml (0.0-0.25)
[2025-03-05 07:10] LABS: % Basophils 0.2 % (0-2); % Eosinophils 0.2 % (0-6); % Immature Granulocytes 1.1 % (0-0.5); % Lymphocytes 5.2 % (20.5-51.1); % Neutrophils 88.3 % (42.2-75.2); Absolute Basophils 0.1 10^3/uL (0-0.2); Absolute Eosinophils 0.1 10^3/uL (0-0.7); Absolute Immature Granulocytes 0.3 10^3/uL (0-0.05); Absolute Lymphocytes 1.5 10^3/uL (1.2-3.4); Absolute Monocytes 1.4 10^3/uL (0.1-0.6); Absolute Neutrophils 25.6 10^3/uL (1.4-6.5); Nucleated Red Blood Cells % 0.1 % (-)
[2025-03-05] MEDS: TOPROL XL 25 MG PO (07:57)
[2025-03-05] MEDS: ZETIA 10 MG PO (07:58)
[2025-03-05] MEDS: PACERONE 400 MG PO ×2 (07:58→19:32)
[2025-03-05] MEDS: LOW STRENGTH ASPIRIN 81 MG PO (07:58)
[2025-03-05] MEDS: LIPITOR 40 MG PO (07:58)
[2025-03-05] MEDS: ULTRAM 50 MG PO ×2 (07:58→19:32)
--- NOTE | 2025-03-05 07:59 | W.PN.HOSP.TC ---
Addendum entered and electronically signed by Lacie Yi MD 03/05/25 12:43:
d/w CM, plan is for home hospice.
IR CS for Pleurax placement for recurrent L pleural effusion (for comfort).
Effusion to be drained as needed or at every hospice nurse visit.
Original Note:
Today's Communication/Plan
-
GOC discussion ongoing
Assessment / Plan
Assessment / Plan
A/P:
# Acute hypoxic respiratory insufficiency, multifactorial due to malignant left pleural effusion, left lower lobe postobstructive pneumonia (?lymphangitic spread malignancy), and left lung mass (likely malignant):
On 4L NC currently- wean as able
Status post repeat left thoracentesis on Friday 03/02
Consider ASEPT placement if effusion becoming recurrent, check CXR Monday 03/05
Repeat procalcitonin remain elevated at 0.67
Pt currently on Unasyn
Of note, cytology from [facility] 02/26 came back positive for malignancy
GOC discussion started due to poor prognosis. Dispo plan TBD, rehab or hospice
Cont current IDDSI level 5 diet status post video swallow study
# Extensive mediastinal, hilar, and supraclavicular adenopathy:
s/p supraclavicular LN biopsy 02/26, path report noted Metastatic sarcomatoid carcinoma
# Recurrent Pleural effusion with adjacent lung mass:
# Status post L [facility] on 02/26, cytology positive for malignancy
# Status post repeat L [facility] 03/02, follow cytology from 03/02
# Severe hypercalcemia of malignancy, Resolved
Status post pamidronate and calcitonin, and IV fluid
# Metastatic sarcomatoid carcinoma :
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
Follows up with Dr. Dozier orthopedic oncology at [place]
Our oncology discussed with Dr. Dozier as per notes -> plan to be treated as metastatic sarcomatoid carcinoma versus primary lung malignancy with metastatic disease.
Pain control on tramadol
# Paroxysmal A-fib:
Currently in normal sinus rhythm
Continue oral amiodarone
Continue oral metoprolol
Not a candidate for anticoagulation
Appreciated cardiology
# Hypotension, related to A-fib, now improved
# Embolic stroke and metastatic brain disease:
MRI brain 02/28 noted: Several (approximately four) tiny nonhemorrhagic acute/subacute infarcts scattered throughout the left frontoparietal and right posterior parieto-occipital lobes. 7 mm enhancing metastasis in the left frontal lobe.
Pt was started with aspirin and statin
Not a candidate for anticoagulation
Status post echocardiogram and lumbar spine MRI
Neurology input appreciated
# Chronic HFpEF:
Monitor volume status closely
# History of severe mitral regurgitation:
# Status post mitral valve repair in the past
# Hypertension:
Usual meds
# Anemia:
Hemoglobin 9.5 today
# Hyperlipidemia:
Statin
# CAD:
Status post CABG in the past
Continue aspirin, beta-blockers, and statins.
# NOMI, Multifactorial etiology NSAIDs use, dehydration, postobstructive, hypercalcemia, other; Resolved
# Urinary retention:
Status post Walker
# Acute metabolic encephalopathy:
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
Has received antipsychotics during this hospital stay
# Hyponatremia:
Improving
# Stage II sacral pressure injury, POA
DVT prophylaxis: Lovenox SQ
CODE STATUS: DNR
Prognosis guarded (patient and family still prefer restorative treatment but they are contemplating the possibility of palliative/hospice care)
updated sister on the phone, will call later to continue GOC discussion
Total time spent on today's encounter was 51 minutes which included time spent in counseling the patient/family regarding diagnosis and treatment plan as listed above, goals of care, and symptom management. Case was discussed with nursing staff,
specialists, and care coordinators/case management. All labs and imaging personally reviewed by me. Remainder the time spent in detailed review of previous records, lab data, imaging, and other medical provider documentation.
Anticipated Discharge: > 48 hours
Subjective/Interval History
-
Date of Service: March 05, 2025
Objective Data
-
Labs:
Laboratory Results
03/05/25
04:33
WBC 28.9 H
Hgb 9.5 L
Hct 28.1 L
Plt Count 332
Sodium 132 L
Potassium 4.3
Chloride 102
Carbon Dioxide 22
BUN 36 H
Creatinine 0.8
Glucose 95
Calcium 9.1
Vital Signs:
Vital Signs
Temp Pulse Resp BP Pulse Ox
36.3 C 103 41 126/63 95
03/05/25 03:07 03/05/25 06:00 03/05/25 06:00 03/05/25 06:00 03/05/25 06:00
I&O
03/04/25 03/05/25 03/06/25
06:59 06:59 06:59
Intake Total 240 / 240 1320 / 1320
Output Total 525 / 525 625 / 625
Balance -285 / -285 695 / 695
Review of Systems
-
History Source: Patient
All other systems: Reviewed and negative
Physical Exam
-
General: Well Developed, Well Nourished, Comfortable, Respiratory Distress, Conversant and Appears Chronically Ill
HEENT: Normocephalic, Atraumatic, Nose Appears Normal, Ears Appear Normal and Oxygen (4L NC)
Respiratory: Clear to Auscultation and Non Labored Respirations; Negative Accessory Resp Muscle Use
Cardiac: Regular Rhythm and S1/S2
GI: Soft, Nontender, Nondistended and Normal Bowel Sounds
Skin: Warm and Dry
Neuro: Awake and Alert
Psych: Calm and Intact Judgement/Insight (somewhat )
Data Reviewed
-
Diagnostic Radiology: Image personally visualized and interpreted and Report Reviewed by me
MRI: Report Reviewed by me
Labs: Labs Reviewed by me
--- NOTE | 2025-03-05 08:19 | PTOTSP ---
[facility] Note
New orders required to continue [facility] services upon transfer to IMU. Will f/u if/when orders received.
[2025-03-05] MEDS: STERILE WATER FOR INJECTION IV (09:49)
--- NOTE | 2025-03-05 11:59 | PTOTSP ---
Pt transferred to IMU 03/02 for higher level of care. PT/OT orders were not continued upon transfer. Per case management, pt is for hospice consult. Will need updated PT/OT orders if pt does not sign onto hospice.
--- NOTE | 2025-03-05 12:59 | PTCARENOTE ---
Patient with no complaints. Awaiting pleurex cath placement. at bedside. VSS. Weaned to 3L NC. Will continue to closely monitor.
--- NOTE | 2025-03-05 13:04 | W.PN.CARDCBS ---
Addendum entered and electronically signed by Rg Melchor MD 03/05/25 14:27:
75-year-old man admitted with widely metastatic sarcomatoid carcinoma, with bony, pulmonary abdominal and brain mets, developed paroxysmal atrial fibrillation and flutter now in sinus rhythm on amiodarone
PMH/PSH: CAD/CABG with history of inferior [place]V and subsequent recovery of EF, mitral valve repair, hypertension, hyperlipidemia, right bundle branch block
Meds: Aspirin 81 mg a day, atorvastatin 40 mg a day, ezetimibe 10 mg a day, Lovenox, Unasyn, metoprolol ER 25 a day, tramadol, amiodarone 400 twice daily
127/75, pulse 100, weight is 71.6 kg, sleeping, conversant upon awakening, somewhat lethargic, appears chronically ill, head neck exam unremarkable, lungs are relatively clear on right, severely diminished on left, relatively tachycardic but sinus
rhythm, no obvious murmurs, extremities without much edema
Chest x-ray today effusion/atelectasis with volume loss of left lung
Left thoracentesis March 02, 1650 mL
White count is 28.9, hemoglobin is 9.5 platelets are 332, BUN and creatinine are 36 and 0.8, procalcitonin is 0.67
Telemetry: Sinus rhythm/sinus tachycardia
Impression:
Admitted with severe symptomatic hypercalcemia 02/22/25
Newly diagnosed paroxysmal typical atrial flutter/fibrillation
initially in rapid atrial flutter 2:1, spontaneously converted to SR 03/03/25Newly diagnosed metastatic cancer
large expansile osseous lesion in the right pubic bone and superior pubic ramus suspicious for sarcomatous transformation on MRI in December after abnormal hip xrays in November after a fall s/p biopsy of the right pubic bone via Ortho oncologist on
02/19/2025 that showed malignant spindle and epithelioid cell neoplasm consistent with metastatic sarcomatoid carcinoma
newly diagnosed malignant spindle and epithelioid cell neoplasm most consistent with metastatic sarcomatoid carcinoma involving brain, lung, bone, lymph nodes, and adrenals B/LLeft pleural effusion
Anasarca
NOMI on admission
Hyponatremia on admission
Hypercalcemia on admission
managed with pamidronate, calcitonin and IVFICM with recovered EF; not on diuretics prior to hospitalization
CAD/Inferior [place] s/p CABG x 5 [KLINE to LAD, seq SVG to R8-C4-VP5-RPDA], 06/04/15
h/o severe MR s/p mitral valve repair with a 30mm annuloplasty ring 06/04/2015
HTN
Hypercholesterolemia
RBBB
former smoker
Acute/subacute infarcts in the left frontoparietal and right posterior parieto-occipital lobes by MRI brain 02/28/2025
Lexiscan nuclear stress test 10/05/24: moderate, mild basal to distal inferior and inferolateral perfusion defect which is predominantly fixed. This defect does improve somewhat prone imaging suggesting some level of attenuation. There is no
significant ischemia. Systolic function is normal. The ejection fraction is 67%.
Plan:
He remains in sinus rhythm, no obvious cardiac complaints at this time.
Continue amiodarone, continue metoprolol
Okay to stop atorvastatin, ezetimibe, keep lisinopril on hold
Left pleural catheter
Home hospice
Original Note:
Today's Communication / Plan
-
Plan is for left sided pleural cath and then home hospice
Would continue amiodarone 200 mg BID for 1 month then 200 mg daily thereafter to help maintain SR which should improve comfort
CVAs seen on MRI brain, but not OAC due to microhemorrhages as well and again plan is for hospice
Impression / Plan
-
PCP: Dr. Hayn Fonseca
Tree Feller: Dr. Melchor
Impression:
Admitted with severe symptomatic hypercalcemia 02/22/25
Newly diagnosed paroxysmal typical atrial flutter/fibrillation
initially in rapid atrial flutter 2:1, spontaneously converted to SR 03/03/25
Newly diagnosed metastatic cancer
large expansile osseous lesion in the right pubic bone and superior pubic ramus suspicious for sarcomatous transformation on MRI in December after abnormal hip xrays in November after a fall s/p biopsy of the right pubic bone via Ortho oncologist on
02/19/2025 that showed malignant spindle and epithelioid cell neoplasm consistent with metastatic sarcomatoid carcinoma
newly diagnosed malignant spindle and epithelioid cell neoplasm most consistent with metastatic sarcomatoid carcinoma involving brain, lung, bone, lymph nodes, and adrenals B/L
Left pleural effusion
Anasarca
NOMI on admission
Hyponatremia on admission
Hypercalcemia on admission
managed with pamidronate, calcitonin and IVF
ICM with recovered EF; not on diuretics prior to hospitalization
CAD/Inferior [place]V s/p CABG x 5 [KLINE to LAD, seq SVG to D3-U0-VO8-RPDA], 06/04/15
h/o severe MR s/p mitral valve repair with a 30mm annuloplasty ring 06/04/2015
HTN
Hypercholesterolemia
RBBB
former smoker
Acute/subacute infarcts in the left frontoparietal and right posterior parieto-occipital lobes by MRI brain 02/28/2025
Lexiscan nuclear stress test 10/05/24: moderate, mild basal to distal inferior and inferolateral perfusion defect which is predominantly fixed. This defect does improve somewhat prone imaging suggesting some level of attenuation. There is no
significant ischemia. Systolic function is normal. The ejection fraction is 67%.
Echo 03/01/25: Normal left ventricular size and function. Normal regional wall motion. Left ventricular ejection fraction is 60-65% by visual assessment. Status post mitral valve repair. Peak/mean gradients across the mitral valve are 8/4 mmHg. Trace
mitral regurgitation is seen. Trileaflet, sclerotic aortic valve. No aortic stenosis or aortic regurgitation. Mild tricuspid regurgitation. Estimated pulmonary artery pressure of 30-35 mmHg. Assuming a right atrial pressure of 3mmHg. Trivial
pericardial effusion. Compared to prior study dated 10/18/2024, there is no significant change
Plan:
-Patient admitted with severe symptomatic hypercalcemia and then diagnosed with metastatic sarcomatoid carcinoma with lesions in the brain, lung, bone, lymph nodes and adrenal glands bilaterally. Cardiology was consulted for newly diagnosed
paroxysmal A-fib/flutter with RVR on 03/02/2025 that then spontaneously converted to NSR by 03/03/2025.
-CM and hospitalist attending notes reviewed, there was consideration for treatment and restorative care, but patient and family now electing for home hospice
-From a cardiac standpoint patient with newly diagnosed A-fib/flutter with RVR that spontaneously converted to SR this admission. Amiodarone gtt initially and then ordered amiodarone 400 mg BID, patient has received a 2 g load as of 03/05/2025.
Recommend continuing amiodarone 200 mg BID for 1 month and then 200 mg daily thereafter upon discharge to help maintain SR which should help keep patient comfortable
-MRI of brain suggests several tiny acute/subacute infarcts scattered throughout the left frontoparietal and right posterior parietal occipital lobes along with metastatic lesions. Neurology note reviewed and they recommend aspirin for stroke
prophylaxis.
-Patient with known CAD and CABG and also with known MV repair that appeared stable by echo this admission. No recommended changes in the management to help improve comfort while entering home hospice.
-Outpatient dose of Toprol-XL 25 mg daily has been continued this admission
-Outpatient dose of lisinopril 20 mg daily has been on hold this admission and no obvious need to resume at this time
-Left-sided pleural effusion is malignant and plan is for catheter placement for comfort prior to discharge
Progress Note - Tree [facility]
Subjective
Date of Service: March 05, 2025
No pain or SOB at rest
Objective
Labs:
03/05/25 04:33
03/05/25 04:33
Labs
Hgb 9.5 g/dL (13.0-18.0) L 03/05/25 04:33
Hct 28.1 % (39.0-52.0) L 03/05/25 04:33
Plt Count 332 10^3/uL (130-400) 03/05/25 04:33
Sodium 132 mmol/L (135-145) L 03/05/25 04:33
Potassium 4.3 mmol/L (3.5-5.1) 03/05/25 04:33
BUN 36 mg/dl (9-20) H 03/05/25 04:33
Creatinine 0.8 mg/dL (0.7-1.3) 03/05/25 04:33
Glucose 95 mg/dl (70-99) 03/05/25 04:33
Vital Signs and I&O:
Vital Signs
Temp Pulse Resp BP Pulse Ox
97.2 F 100 33 110/74 96
03/05/25 07:05 03/05/25 12:00 03/05/25 12:00 03/05/25 12:00 03/05/25 12:00
Vital Signs
Temp Pulse Resp BP Pulse Ox
97.2 F 100 33 110/74 96
03/05/25 07:05 03/05/25 12:00 03/05/25 12:00 03/05/25 12:00 03/05/25 12:00
Intake & Output
03/03/25 03/04/25 03/05/25 03/06/25
06:59 06:59 06:59 06:59
Intake Total 470 / 470 240 / 240 1320 / 1320 480 / 480
Output Total 1000 / 1000 525 / 525 625 / 625
Balance -530 / -530 -285 / -285 695 / 695 480 / 480
Physical Exam
Physical Exam
GEN: AAOx3
LUNGS: RA
CV: SR on tele
--- NOTE | 2025-03-05 14:39 | WOUNDNOTE ---
COOPER RN NOTE: Confirmed with nurse Burks patient for discharge to home hospice, can cancel consult.
--- NOTE | 2025-03-05 14:59 | PN.IRAD.UPD ---
Update Note - IRAD
- -
Left Asept catheter drained while in IRAD for 1000 ml's. Per Case management (Paula Mc) can not make it into the hospital today for teaching so drainage teaching will be done by the Hospice Agency tomorrow. PRN drainage orders entered by
, home care OK with that order per CM. a box of 5 Asept bottles are being sent up with the patient for discharge, RN and CM made aware.
--- NOTE | 2025-03-05 15:12 | CM ---
CM consult for hospice- plan for asept placement for comfort
Bedside meeting with pt and spouse who are in agreement with home with hospice
Out of service area for Hospice
Referral made to [facility] per request- accepted for service with asept
Multiple calls throughout day with [facility] hospice/Jessika [phone]
Clinicals and order faxed via [facility]
Spouse unable to return to hospital for asept bedside teaching
Hospice confirmed they will provide teaching to spouse
Confirmed extra canisters will be provided by IRAD with [facility] Heaton
Nursing aware canisters will need to be given to ambulance crew for transport home tomorrow, they are in room
IMM verbally reviewed with spouse over phone
Medical necessity completed
[employer] to schedule BLS for 1200 pickup tomorrow
DNR on chart and will need physician completion
If pain meds are needed on dc, physician to provide 3 day script
Hospice meds will not be delivered for 1-2 days per their pharmacy intake coordinator
TT/Dr Yi and she is aware
Updates to spouse and sister- they are in agreement with plan
Discharge Disposition- home tomorrow (03/06) with [facility] and new asept, 1200 BLS pickup
Discharge paperwork to be faxed to [facility] (f) [phone]
--- NOTE | 2025-03-05 15:39 | PTCARENOTE ---
Patient returned from IRAD. L pleurex cath CDI. Bottles sent with IR for home at bedside. Patient drowsy, reports no discomfort. VSS. 4L NC, sats 95%. Will closely monitor.
--- NOTE | 2025-03-05 16:03 | W.PN.PUL3 ---
Today's Communication / Plan
-
- IR guided indwelling pleural drainage catheter placement today
- Pulmonary team will sign off, please call as needed
Assessment
-
Assessment: 74-year-old male former tobacco smoker with a past medical history of ICM with recovered EF, stage II diastolic dysfunction, CAD s/p CABG x 5, hypertension, hypercholesterolemia, periodontal disease and history of severe mitral
regurgitation s/p mitral valve repair who presents with fatigue, reduced oral intake, nausea and right-sided groin pain. Previously found to have right hip pain since November 2024. In December he underwent MRI showing a large expansile osseous lesion
in the right pubic bone and superior pubic ramus suspicious for sarcomatous transformation. He underwent a biopsy of the right pubic bone via Ortho oncologist on 02/19/2025 that showed malignant spindle and epithelioid cell neoplasm consistent with
metastatic sarcomatoid carcinoma. He came to the hospital because of increasing right groin pain with fatigue and reduced oral intake. In the ER he was afebrile with heart rate 104, respiratory rate 18, BP low at 93/55 and saturating 96% on room
air. Labs pertinent for leukocytosis to 23.5, anemia to 11.1, sodium 126, creatinine 2.1, calcium 14.8, intact PTH <3.4, and urinalysis with no signs of UTI. Urine and blood cultures collected. CXR shows an enlarged left hilar shadow concerning
for adenopathy versus a central mass, with increased reticulonodular markings throughout the left lung concerning for lymphangitic spread of carcinoma and a left-sided pleural effusion. He was given 2 L NS 0.9% in the ER and admitted to the floor,
and empirically started on antibiotics, with nephrology and hematology consulted. Patient had a repeat CXR on 02/24 showing airspace opacity throughout the left lower lobe and the lingula concerning for pneumonia. Pulmonary service now consulted
for additional management/recommendations.
Chronic conditions ANESTHESIOLOGY TECH: Chronic diastolic heart failure, history of severe mitral regurgitation s/p mitral valve repair, pulmonary hypertension, hypercholesterolemia, hypertension, periodontal disease, CAD s/p CABG x 5, diverticulosis, suspected
Paget's disease
#1. Left infrahilar mass encasing proximal LLL pulmonary artery with left lower lobe post-obstructive pneumonia, malignant left-sided pleural effusion
-Discussed with patient and at bedside, also discussed with primary hospitalist team, patient and family have opted for home with hospice support
-Plan for IR guided Pleurx catheter placement for malignant pleural effusion as it is recurrent and symptomatic
-Pulmonary team will sign off, please call as needed
#2. Extensive mediastinal/hilar and supraclavicular lymphadenopathy with lung mass and pleural effusion
- S/p IR guided supraclavicular lymph node biopsy, positive for malignancy
#3. Paraseptal emphysema
- Patient reports smoking from age 19 up until 66, about 1 pack/day, close to [id number] smoking history
- No wheezing on exam, does not report using any inhalers at baseline
#4. Recent diagnosis of Metastatic sarcomatoid carcinoma via right pubic bone biopsy on 02/19/2025 showing malignant spindle and epithelioid cell neoplasm
- Evidence of metastatic bone lesions with right lateral 6th rib destruction on CXR (02/24/2025)
DVT ppx: LMWH
Prognosis is poor
Total time spent on this consultation/encounter _41___ minutes which includes review of history, physical exam, medications, laboratory data, personal review of imaging, extensive review of outpatient records, discussion with care team and
respiratory therapy.
Data:
CXR 02/24/2025:
1. Large amount of left lower lobe opacity which is most likely SEVERE LEFT LOWER LOBE PNEUMONIA (probably postobstructive pneumonia secondary to left lower lobe bronchial occlusion).
2. 4.8 cm irregular shaped density in the left hilum most consistent with LEFT HILAR MALIGNANCY (either primary lung cancer or metastatic disease).
3. Large 7.4 cm DESTRUCTIVE OSSEOUS METASTASIS in the right lateral 6th rib.
4. Mild cardiomegaly.
5. Previous CABG surgery.
CT Chest with IV contrast 02/25/2025:
1. LARGE 6.3 cm MALIGNANT MASS in the superior segment of the LEFT LOWER LOBE extending into the left hilum and encasing the left lower lobe pulmonary artery and bronchus.
2. Extensive metastatic mediastinal, bilateral hilar, and bilateral supraclavicular lymphadenopathy.
3. Peribronchovascular spread of malignancy into the left upper lobe.
4. MULTIFOCAL OSSEOUS METASTATIC DISEASE including a large destructive metastasis in the left T5 vertebra and a large lytic metastasis in the right lateral 6th rib.
5. Large bilateral adrenal metastases.
6. Large metastatic lymph nodes in the right upper quadrant.
7. Large peritoneal metastases in the left upper quadrant.
8. SEVERE LEFT LOWER LOBE PNEUMONIA.
9. Moderate-sized left pleural effusion.
10. Small right pleural effusion.
11. Previous CABG surgery.
Subjective Data
-
Date of Service:
Date of Service: March 05, 2025
Chief Complaint: Pulmonary Follow Up
Subjective:
Patient appears uncomfortable, mildly short of breath, examined prior to Pleurx catheter placement
Review of Systems
Genitourinary: Other (No new symptoms except as stated above)
Objective Data
Data Reviewed
Vital Signs / I&O / Oxygen:
Vital Signs
Temp Pulse Resp BP Pulse Ox
97.1 F 100 25 107/56 97
03/05/25 15:00 03/05/25 15:00 03/05/25 15:00 03/05/25 15:00 03/05/25 15:00
Intake and Output
03/04/25 03/05/25 03/06/25
06:59 06:59 06:59
Intake Total 240 / 240 1320 / 1320 480 / 480
Output Total 525 / 525 625 / 625
Balance -285 / -285 695 / 695 480 / 480
SaO2 97
Nasal Cannula flow liters per 4
minute
Physical Exam
General: Respiratory Distress (negative) and Comfortable
HEENT: Normocephalic and Anicteric
Cardiovascular: S1-S2 and Peripheral Edema (trace)
Respiratory: Non-Labored Respirations and Egophony (Essentially no air entry on the left side)
GI: Soft, Non Distended, Non Tender and Normal Bowel Sounds
Neurology: Awake and Alert
Skin: Warm and Dry
Labs/Micro/Reports
Lab Data
03/05/25 04:33
03/05/25 04:33
Microbiology
03/05/25 04:55 Sputum Gram Stain - Preliminary
[2025-03-05] MEDS: LOVENOX 40 MG SC (17:36)
--- NOTE | 2025-03-05 22:49 | PTCARENOTE ---
Addendum entered by Katy Willard RN 03/06/25 01:15:
Pt pain returning. Medication requested from night DIMENSIONAL ENGINEER, see nov.
Original Note:
Pt able to make needs known. Pt spo2 94% on 2L respiration even unlabored. Pt rr in 30's, rr baseline this admit. Pt had complaints of discomfort in right hip. Pt repositioned and schedule medication given for pain. Pt having positive results from
repositioning and medication.
[2025-03-05] MEDS: TYLENOL 650 MG PO (23:39)
[2025-03-06] VITALS (7 sets, daily range): BP systolic 113–140; BP diastolic 52–105; BMI 24.7
[2025-03-06] MEDS: ULTRAM 50 MG PO ×2 (00:40→08:27)
[2025-03-06] MEDS: DILAUDID 0.25 MG IV (05:18)
--- NOTE | 2025-03-06 05:33 | PTCARENOTE ---
Pt awake with complaints of pain in same areas (right hip and general body). Respiration in the 40's spo2 94%. Night ENVIRONMENTAL AID made aware. One time does of pain medication given, see mar. Reassessment Pt appears to be comfortably sleeping, respirations
even unlabored and rr is now in 20's spo2 remains in high 90's.
[2025-03-06] MEDS: LOW STRENGTH ASPIRIN 81 MG PO (08:27)
[2025-03-06] MEDS: TOPROL XL 25 MG PO (08:27)
[2025-03-06] MEDS: PACERONE 400 MG PO (08:27)
--- NOTE | 2025-03-06 08:42 | W.PN.HOSP.TC ---
Addendum entered and electronically signed by Lacie Yi MD 03/06/25 11:39:
Total DC time 45 minutes
Original Note:
Today's Communication/Plan
-
see A/P
Assessment / Plan
Assessment / Plan
A/P:
# Acute hypoxic respiratory insufficiency, multifactorial due to malignant left pleural effusion, left lower lobe postobstructive pneumonia (?lymphangitic spread malignancy), and left lung mass (likely malignant):
On 2L NC currently, cont 2L NC going forward for comfort
Of note, cytology from [facility] 02/26 came back positive for malignancy
Status post repeat left thoracentesis on Friday 03/02
repeat CXR 03/05 again showed rapid reaccumulation of L pleural effusion,
IR placed L Jamir Pleural Cath 03/05 for symptomatic control
No need for further Abx with transitioning to home hospice, DCed further Unasyn
Dispo plan for home hospice following GOC discussion
Current IDDSI level 5 diet can be liberalized for pleasure feeding
# Extensive mediastinal, hilar, and supraclavicular adenopathy:
s/p supraclavicular LN biopsy 02/26, path report noted Metastatic sarcomatoid carcinoma
# Recurrent Pleural effusion with adjacent lung mass:
# Status post L [facility] on 02/26, cytology positive for malignancy
# Status post repeat L [facility] 03/02, cytology again positive for malignancy
# Severe hypercalcemia of malignancy, Resolved
Status post pamidronate and calcitonin, and IV fluid
# Metastatic sarcomatoid carcinoma:
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
Follows up with Dr. Dozier orthopedic oncology at [facility]
# Paroxysmal A-fib:
Currently in normal sinus rhythm
Can DC further oral amiodarone and oral metoprolol going forward on home hospice
Not a candidate for anticoagulation
Appreciated cardiology
# Hypotension, related to A-fib, now improved
# Embolic stroke and metastatic brain disease:
MRI brain 02/28 noted: Several (approximately four) tiny nonhemorrhagic acute/subacute infarcts scattered throughout the left frontoparietal and right posterior parieto-occipital lobes. 7 mm enhancing metastasis in the left frontal lobe.
Pt was started with aspirin and statin, no need to cont with home hospice
Not a candidate for anticoagulation
Status post echocardiogram and lumbar spine MRI
Neurology input appreciated
# Chronic HFpEF:
Monitor volume status closely
# History of severe mitral regurgitation:
# Status post mitral valve repair in the past
# Hypertension:
# Anemia
# Hyperlipidemia:
# CAD:
Status post CABG in the past
Continue aspirin, beta-blockers, and statins.
# NOMI, Multifactorial etiology NSAIDs use, dehydration, postobstructive, hypercalcemia, other; Resolved
# Urinary retention:
Status post Walker
# Acute metabolic encephalopathy:
Improved but not back to baseline after NOMI/electrolytes improvement so MRI revealed stroke and metastatic INSPECTOR GOLF BALL as above
Has received antipsychotics during this hospital stay
# Hyponatremia:
Improved
# Stage II sacral pressure injury, POA
DVT prophylaxis: Lovenox SQ
CODE STATUS: DNR
Prognosis guarded , dispo plan for home hospice
DW RN
updated on the phone
Anticipated Discharge: Today
Subjective/Interval History
-
Date of Service: March 06, 2025
Objective Data
-
Labs:
Laboratory Results
03/06/25
06:00
WBC Pending
Hgb Pending
Hct Pending
Plt Count Pending
Sodium Pending
Potassium Pending
Chloride Pending
Carbon Dioxide Pending
BUN Pending
Creatinine Pending
Glucose Pending
Calcium Pending
Vital Signs:
Vital Signs
Temp Pulse Resp BP Pulse Ox
36.6 C 95 22 113/52 95
03/06/25 08:00 03/06/25 08:27 03/06/25 06:00 03/06/25 08:27 03/06/25 06:00
I&O
03/05/25 03/06/25 03/07/25
06:59 06:59 06:59
Intake Total 1320 / 1320 960 / 960
Output Total 625 / 625 275 / 275
Balance 695 / 695 685 / 685
Review of Systems
-
History Source: Patient
All other systems: Not reviewed unless documented
Physical Exam
-
General: Well Developed, Well Nourished, Comfortable, Respiratory Distress, Conversant and Appears Chronically Ill
HEENT: Normocephalic, Atraumatic, Nose Appears Normal, Ears Appear Normal and Oxygen (2L NC)
Respiratory: Clear to Auscultation and Non Labored Respirations; Negative Accessory Resp Muscle Use
Cardiac: Regular Rhythm and S1/S2
GI: Soft, Nontender, Nondistended and Normal Bowel Sounds
Skin: Warm and Dry
Psych: Calm
Data Reviewed
-
Diagnostic Radiology: Image personally visualized and interpreted and Report Reviewed by me
MRI: Report Reviewed by me
Labs: Labs Reviewed by me
--- NOTE | 2025-03-06 08:53 | PTCARENOTE ---
Patient AAOx3, drowsy. Comfortable. VSS. 2L NC. Plan for home hospice at noon. Patient aware of this. L pleurex cath CDI. Patient making needs known. Will continue to monitor.
--- NOTE | 2025-03-06 08:54 | W.PN.UPDATE ---
Update Note
Progress Note Update
Pt going home on hospice.
Please recall if needed
--- NOTE | 2025-03-06 09:58 | CM ---
Addendum entered by Delfina Villela RN 03/06/25 10:45:
Spoke with Regino Dalal, patient's ; discussed considerations for caring for patient at home. Answered 's questions about diet and meds and suggested she speak with hospice nurse how to thicken up his fluids and to discuss meds with
hospice nurse, she is aware scripts for pain/anxiety were sent to hospice. Answered her questions/concerns about home O2. wants to care for patient by herself, and doesn't feel the need to discuss caregivers at this time. She is aware
hospice nurse can assist with this.
's concerns relayed to Jessika at [facility].
Addendum entered by Delfina Villela RN 03/06/25 10:28:
Spoke with Regino Dalal, patient's ; reviewed d/c plans for today including that patient would be sent home with box of Asept Catheters, scripts for pain/anxiety meds, DME delivery hospital bed & home O2 as per hospice, and ambulance
transport set for noon.
Original Note:
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 O2 2L. Receiving Xanax prn, Tramadol. PT/OT 03/02 recommend skilled
rehab. Per nurse; drowsy, forgetful.
Spoke with Jessika, nurse [facility] (ph [phone], fax [phone]); she has arranged delivery of hospital bed and home O2 for 11-11:30am today with 10 L O2 concentrator, and she is aware patient is on O2 2L at this time. Jessika is
aware that patient will be sent home with a box of 4 Asept Catheters. Provided update that patient will be sent home with scripts for Xanax and Tramadol - she requests scripts faxed as well---> message to Tasneem, [employer]. CM also faxed
hospice order and Chest Tube Insertion note as requested.
Spoke with Newton, patient's sister, who is [facility]; reviewed d/c plans for today including that patient would be sent home with box of Asept Catheters, scripts for pain/anxiety meds, DME delivery hospital bed & home O2 as
per hospice, and ambulance transport set for noon.
IMM signed yesterday per prior CM notes.
[facility] DNR signed on chart.
Plan home today with [facility] at noon by ambulance, with box of Asept Catheters,with hospital bed and home O2 per hospice, with scripts for pain/anxiety meds.
--- NOTE | 2025-03-06 11:23 | W.DCSUMMARY ---
Discharge Summary
Discharge Data
Date of Admission: 02/22/25
Date of Discharge: 03/06/25
-
Pending Results: No
Hospital Course
Principal Diagnosis:
Severe hypercalcemia of malignancy on admission, resolved
Acute hypoxic respiratory insufficiency, multifactorial due to malignant left pleural effusion, left lower lobe postobstructive pneumonia (?lymphangitic spread malignancy), and left lung mass (likely malignant)
Extensive mediastinal, hilar, and supraclavicular adenopathy; s/p supraclavicular LN biopsy 02/26, path report noted Metastatic sarcomatoid carcinoma
Recurrent L Pleural effusion with adjacent lung mass, status post L thora twice (02/26 and 03/02), cytology from both thora showed malignancy
NOMI, multifactorial etiology including NSAIDs use, dehydration, postobstructive, hypercalcemia; NOMI resolved
Acute metabolic encephalopathy due to embolic stroke and metastatic brain disease
Stage II sacral pressure injury, POA
Chronic Diagnoses:�
Chronic HFpEF
History of severe mitral regurgitation
Status post mitral valve repair in the past
Paroxysmal A-fib
Hypertension
Anemia
Hyperlipidemia
CAD
Status post CABG in the past
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
Resolved urinary retention, status post Walker
Consultations:�
Pulmonary
Interventional radiology
Cardiology
Nephrology
Oncology
Neurology
Procedures:�
L thoracenteses twice this admission (02/26 and 03/02)
Supraclavicular lymph node biopsy 02/26
Clinical course:�
This is a 75-year-old male, with past medical history as stated above, who presented with confusion.
Problem 1:
Severe hypercalcemia of malignancy on admission, resolved.
His hypercalcemia was treated with IV fluid, pamidronate and calcitonin.
Problem 2:
Acute hypoxic respiratory insufficiency, multifactorial due to malignant left pleural effusion, left lower lobe postobstructive pneumonia (?lymphangitic spread malignancy), and left lung mass (likely malignant).
At the time of discharge, he was still requiring 2 L nasal cannula O2 support which he can continue going forward for comfort.
Of note, he has had 2 left thoracentesis this admission; both thoracentesis cytology came back positive for malignancy.
Repeat chest x-ray on 03/05 again showed rapid recommendation of left pleural effusion, hence left tunneled pleural catheter was placed by IR on 623 for symptomatic control.
Problem 3:
Extensive mediastinal, hilar, and supraclavicular adenopathy.
He underwent supraclavicular LN biopsy this admission on 02/26.
The pathology report came back with metastatic sarcomatoid carcinoma.
The patient was also severely clinically deconditioned.
Goals of care discussion was initiated and his family agreed to take him home with home hospice..
Problem 4:
Acute metabolic encephalopathy due to embolic stroke and metastatic brain disease.
His MRI brain on 02/28 noted: Several (approximately four) tiny nonhemorrhagic acute/subacute infarcts scattered throughout the left frontoparietal and right posterior parieto-occipital lobes. 7 mm enhancing metastasis in the left frontal lobe.
Whilst he was started with aspirin and statin this admission, these were discontinued with transitioning to home hospice.
Problem 5:
Paroxysmal A-fib.
Prior to admission amiodarone and Toprol were discontinued with transitioning care to home hospice.
He is not a candidate for oral anticoagulation anyway with current active extensive cancer.
The patient was discharged home to start home hospice on 03/06/2025.
Discharge Plan
-
Patient Disposition: Home with Hospice
Discharge Diagnosis/Procedures: Acute hypoxic respiratory failure (multifactorial due to recurrent malignant left pleural effusion, left lower lobe post-obstructive pneumonia, left lung mass likely malignant with possible lymphangitic spread);
Extensive mediastinal, hilar, and supraclavicular adenopathy (status post biopsy, showed metastatic sarcomatoid carcinoma);
Left Asept catheter placement for recurrent malignant effusion;
Severe hypercalcemia due to malignancy on admission (resolved);
Metastatic sarcomatoid carcinoma;
Embolic stroke and metastatic brain disease (several approximately four tiny nonhemorrhagic acute/subacute infarcts scattered throughout the left frontoparietal and right posterior parieto-occipital lobes. 7 mm enhancing metastasis in the left
frontal lobe).
Condition: Critical
Diet: As tolerated
Additional Diets: for pleasure
Activity: As tolerated
Driving Restrictions: No driving
Other Services: Hospice
Referrals:
Ana Gomes MD [Active, Hematology / Oncology]
Referral Note: call to schedule follow up upon discharge
Hany Fonseca MD [Family Provider, Family Practice] - in less than 1 week
Prescriptions:
New
tramadol 50 mg Tablet
50 mg PO BID PRN (Reason: Pain) Qty: 20 0RF
alprazolam 0.25 mg Tablet
0.25 mg PO Q8HPRN PRN (Reason: anxiety) Qty: 7 0RF
Continued
acetaminophen 650 mg Tablet Extended Release
650 mg PO Q4HPRN PRN (Reason: PAIN)
Discontinued
atorvastatin 40 MG tablet
40 mg PO DAILY
lisinopril 20 MG tablet
20 mg PO DAILY
meloxicam 15 mg tablet
15 mg PO DAILY
aspirin 81 mg Tablet
81 mg PO DAILY
metoprolol succinate 25 mg tablet extended release 24 hr
25 mg PO DAILY
ezetimibe 10 mg tablet
10 mg PO DAILY
Discharge Orders:
Discharge Patient (As Directed); Ordered 03/06/25
Ordered By: Lacie Yi
Discharge Date and Time
Print Language: MOHAWK
--- NOTE | 2025-03-06 11:40 | PTCARENOTE ---
Reviewed DC instructions with patient. Tele and IVs removed. Scripts sent with paperwork for hospice RNs. Canisters sent with patient along with belongings in his room. Pleurex cath CDI.
[2025-03-06] MEDS: STERILE WATER FOR INJECTION IV (11:49)
== END 2025-03-06 12:16 | disposition hospice, home (50) | DRG 628 ==
LOC: IMU 13:18
PROVIDERS: Hospitalist; Internal Medicine; Nurse Practitioner Family; Radiology Diagnostic Radiology; Radiology Vascular & Interventional Radiology; ADMITTING PHYSICIAN Hospitalist; ATTENDING PHYSICIAN Internal Medicine; CONSULT PHYSICIAN Internal Medicine Cardiovascular Disease; CONSULT PHYSICIAN Internal Medicine Critical Care Medicine; CONSULT PHYSICIAN Internal Medicine Hematology & Oncology; CONSULT PHYSICIAN Psychiatry & Neurology Neurology; CONSULT PHYSICIAN Specialist; EMERGENCY PHYSICIAN Emergency Medicine; FAMILY PHYSICIAN Student in an Organized Health Care Education/Training Program
PROC: 0W9B3ZZ Drainage of Left Pleural Cavity, Percutaneous Approach (ICD-10-PCS; 2025-02-26)
PROC: 07B23ZX Excision of Left Neck Lymphatic, Percutaneous Approach, Diagnostic (ICD-10-PCS; 2025-02-26)
PROC: 5A09357 Assistance with Respiratory Ventilation, Less than 24 Consecutive Hours, Continuous Positive Airway Pressure (ICD-10-PCS; 2025-03-04)
PROC: 0W9B30Z Drainage of Left Pleural Cavity with Drainage Device, Percutaneous Approach (ICD-10-PCS; 2025-03-05)
DX: E83.52 Hypercalcemia (principal); G93.41 Metabolic encephalopathy; J18.9 Pneumonia, unspecified organism; I63.49 Cerebral infarction due to embolism of other cerebral artery; J96.01 Acute respiratory failure with hypoxia; C34.02 Malignant neoplasm of left main bronchus; J91.0 Malignant pleural effusion; I50.32 Chronic diastolic (congestive) heart failure; N17.9 Acute kidney failure, unspecified; E87.1 Hypo-osmolality and hyponatremia; C79.51 Secondary malignant neoplasm of bone; C77.1 Secondary and unspecified malignant neoplasm of intrathoracic lymph nodes; C79.31 Secondary malignant neoplasm of brain; I48.92 Unspecified atrial flutter; C78.6 Secondary malignant neoplasm of retroperitoneum and peritoneum; C79.71 Secondary malignant neoplasm of right adrenal gland; C79.72 Secondary malignant neoplasm of left adrenal gland; C77.0 Secondary and unspecified malignant neoplasm of lymph nodes of head, face and neck; I48.0 Paroxysmal atrial fibrillation; R33.9 Retention of urine, unspecified; I25.5 Ischemic cardiomyopathy; I25.10 Atherosclerotic heart disease of native coronary artery without angina pectoris; I11.0 Hypertensive heart disease with heart failure; M19.90 Unspecified osteoarthritis, unspecified site; K59.00 Constipation, unspecified; R63.4 Abnormal weight loss; M88.9 Osteitis deformans of unspecified bone; T39.395A Adverse effect of other nonsteroidal anti-inflammatory drugs [NSAID], initial encounter; Z66 Do not resuscitate; I95.9 Hypotension, unspecified; Z51.5 Encounter for palliative care; E86.0 Dehydration; E78.00 Pure hypercholesterolemia, unspecified; I27.20 Pulmonary hypertension, unspecified; D50.9 Iron deficiency anemia, unspecified; E83.42 Hypomagnesemia; D63.8 Anemia in other chronic diseases classified elsewhere; I45.10 Unspecified right bundle-branch block; L89.152 Pressure ulcer of sacral region, stage 2; I34.0 Nonrheumatic mitral (valve) insufficiency; Z95.1 Presence of aortocoronary bypass graft; Z95.2 Presence of prosthetic heart valve; Z87.891 Personal history of nicotine dependence; Z79.82 Long term (current) use of aspirin; Z82.49 Family history of ischemic heart disease and other diseases of the circulatory system
CPT/HCPCS: 88305; 93308; 32550; 32555; 38505; 70553; 71045; 71046; 71260; 72158; 74230; 75989; 80048; 80053; 80202; 81003; 81015; 81459; 82164; 82306; 82330; 82607; 82652; 82728; 82746; 82784; 82945; 83519; 83520; 83540; 83550; 83615; 83735; 83935; 83970; 83986; 84100; 84145; 84155; 84156; 84157; 84165; 84300; 84443; 85025; 85045; 86334; 86335; 87015; 87040; 87070; 87086; 87205; 87449; 87899; 88112; 88313; 88333; 88341; 88342; 89051; 92523; 92526; 92610; 92611; 93005; 93321; 93325; 94640; 94660; 96360; 97163; 97167; 97530; 97535; 99152; 99291; A9575; C1729; C1769; J0630; J2358; J2430; Q9967